=== PATIENT | female | born 1945 | race Caucasian/White ===

== ENCOUNTER 2016-09-01 07:47 | Day surgery (SDC) | payer MEDICARE, BC ==
[~2016-09-01 07:47] MED LIST: Acetaminophen TAB* 325 MG PO PRN; Buffered Lidocaine 0.9% SYRIN* 5 ML/SYR SYRINGE INTRADERM ONE
[2016-09-01] MEDS ORDERED: fentaNYL* 50 MCG/ML 2 ML VIAL (100 MCG VIAL) ONE (08:59)
[2016-09-01] MEDS ORDERED: Midazolam* 1 MG/ML 2 ML VIAL (2 MG) ONE (08:59)
[2016-09-01 10:29] VITALS: BP 121/63
[2016-09-01] MEDS ORDERED: Lidocaine 2% EPI 1:200000 MPF* 20 ML VIAL ONE (11:00)
[2016-09-01] MEDS ORDERED: Proparacaine 0.5% OPHTH.SOL* 15 ML BTL ONE (11:00)
[2016-09-01] MEDS ORDERED: acetaZOLAMIDE TAB* 250 MG ONE (11:00)
[2016-09-01] MEDS ORDERED: Flurbiprofen 0.03% OPTH.SOL* 2.5 ML BTL ONE (11:00)
[2016-09-01] MEDS ORDERED: Lidocaine 2% MPF* 2 ML VIAL ONE (11:00)
[2016-09-01] MEDS ORDERED: Neomycin/Polymy/Dex OPTH.SUSP* MAXITROL 0.1% 5 ML ONE (11:00)
[2016-09-01] MEDS ORDERED: Cyclopentolate 1% OPTH.SOL* 2 ML BTL ONE (11:00)
[2016-09-01] MEDS ORDERED: Povidone Iodine 5% OPTH* 30 ML BTL ONE (11:00)
[2016-09-01] MEDS ORDERED: Phenylephrine 2.5% OPTH.SOL* 2 ML BTL ONE (11:00)
--- NOTE | 2016-09-01 14:23 | OP ---
OPERATIVE NOTE: DATE OF OPERATION: 09/01/16 DATE OF : 49 SURGEON: Juan Francisco Moore M.D. PREOPERATIVE DIAGNOSIS: Cataract right eye POSTOPERATIVE DIAGNOSIS: Cataract right eye OPERATIVE PROCEDURE: Phacoemulsification right eye with IOL. PROCEDURE: The patient was brought to the operating room after being given 1/2% Alcaine with epinep hrine drops in the preoperative area. The eye was prepped and draped in the usual sterile fashion. Sterile drape and eyelid speculum were placed. Again, topical 1/2% Alcaine with epinephrine was gi janay. A paracentesis incision was made at the 9 o'clock position with the No.75 blade. Clear cornea incision 2.2 x 2.2-mm was created at the 12 o'clock position starting at the anterior limbus using the 2.2-mm keratome. The anterior chamber was irrigated with 0.4 mL of 1% non-preservative intracam eral lidocaine and filled with DisCoVisc. A capsulorrhexis was completed using the cystotome and th e Utrata forceps. Hydrodissection was performed with balanced salt solution. The lens nucleus was r emoved with the Phacoemulsification handpiece without incident. Cortex was removed with the irrigat ion-aspiration handpiece. The capsular bag was re-inflated using DisCoVisc and an SN60WF 19.5 impla nt was inserted with the shooter. The irrigation-aspiration handpiece was used to remove all residu al DisCoVisc. The eye was refilled with balanced salt solution and the wound checked and found to b e watertight. Topical Maxitrol drops were given. [id number]/[facility] #: [id number]
== END 2016-09-01 10:39 | disposition home or self-care (01) ==
LOC: OREAST 07:47
PROVIDERS: ATTEND Specialist
DX: H25.811 Combined forms of age-related cataract, right eye (principal); E03.9 Hypothyroidism, unspecified; M19.90 Unspecified osteoarthritis, unspecified site
CPT/HCPCS: A9270-GY; J2250; J3010; V2632

== ENCOUNTER 2016-09-08 06:49 | Day surgery (SDC) | payer MEDICARE, BC ==
[2016-09-08] MEDS ORDERED: fentaNYL* 50 MCG/ML 2 ML VIAL (100 MCG VIAL) ONE (08:19)
[2016-09-08] MEDS ORDERED: Midazolam* 1 MG/ML 2 ML VIAL (2 MG) ONE (08:19)
[2016-09-08 09:22] VITALS: BP 100/64
--- NOTE | 2016-09-08 09:45 | OP ---
DATE OF OPERATION: 09/08/2016 - [facility] DATE OF : 1945. SURGEON: Juan Francisco Moore M.D. PREOPERATIVE DIAGNOSIS: Cataract left eye. POSTOPERATIVE DIAGNOSIS: Cataract left eye. OPERATIVE PROCEDURE: Phacoemulsification left eye with IOL. DESCRIPTION OF PROCEDURE: The patient was brought to the operating room after being given 1/2% Alcaine with epinephrine drops in the preoperative area. The eye was prepped and draped in the usual sterile fashion. Sterile drape and eyelid speculum were placed. Again, topical 1/2% Alcaine with epinephrine was given. A paracentesis incision was made at the 3 o'clock position with the No.75 blade. Clear cornea incision 2.2 x 2.2-mm was created at the 6 o'clock position starting at the anterior limbus using the 2.2-mm keratome. The anterior chamber was irrigated with 0.4 mL of 1% non-preservative intracameral lidocaine and filled with DisCoVisc. A capsulorrhexis was completed using the cystotome and the Utrata forceps. Hydrodissection was performed with balanced salt solution. The lens nucleus was removed with the Phacoemulsification handpiece without incident. Cortex was removed with the irrigation-aspiration handpiece. The capsular bag was re-inflated using DisCoVisc and an SN60WF 20.5 implant was inserted with the shooter. The irrigation-aspiration handpiece was used to remove all residual DisCoVisc. The eye was refilled with balanced salt solution and the wound checked and found to be watertight. Topical Maxitrol drops were given. [id number]/[facility] #: [id number] [facility]
[2016-09-08] MEDS ORDERED: Propofol* 10 MG/ML 20 ML BTL IV PUSH ONE (10:01)
[2016-09-08] MEDS ORDERED: Flurbiprofen 0.03% OPTH.SOL* 2.5 ML BTL ONE (13:48)
[2016-09-08] MEDS ORDERED: Proparacaine 0.5% OPHTH.SOL* 15 ML BTL ONE (13:48)
[2016-09-08] MEDS ORDERED: Buffered Lidocaine 0.9% SYRIN* 5 ML/SYR SYRINGE ONE (13:48)
[2016-09-08] MEDS ORDERED: Lidocaine 2% EPI 1:200000 MPF* 20 ML VIAL ONE (13:48)
[2016-09-08] MEDS ORDERED: Lidocaine 1% MPF wEPI 200,000* 30 ML SDV ONE (13:48)
[2016-09-08] MEDS ORDERED: Povidone Iodine 5% OPTH* 30 ML BTL ONE (13:48)
[2016-09-08] MEDS ORDERED: Lidocaine 1% MPF* 2 ML VIAL ONE (13:48)
[2016-09-08] MEDS ORDERED: Cyclopentolate 1% OPTH.SOL* 2 ML BTL ONE (13:48)
[2016-09-08] MEDS ORDERED: Phenylephrine 2.5% OPTH.SOL* 2 ML BTL ONE (13:48)
[2016-09-08] MEDS ORDERED: acetaZOLAMIDE TAB* 250 MG ONE (13:48)
[2016-09-08] MEDS ORDERED: Neomycin/Polymy/Dex OPTH.SUSP* MAXITROL 0.1% 5 ML ONE (13:48)
== END 2016-09-08 09:19 | disposition home or self-care (01) ==
LOC: OREAST 06:49
PROVIDERS: ATTEND Specialist
DX: H25.812 Combined forms of age-related cataract, left eye (principal); E03.9 Hypothyroidism, unspecified; M19.90 Unspecified osteoarthritis, unspecified site
CPT/HCPCS: A9270-GY; J2001; J2250; J2704; J3010; V2632

== ENCOUNTER 2017-02-08 06:46 | Inpatient (IN) | payer MEDICARE, OTHER ==
--- NOTE | 2017-01-26 18:06 | HP ---
HISTORY AND PHYSICAL: DATE OF SURGERY: 02/08/17 DATE OF OFFICE VISIT: 01/26/17 SURGEON: Shelly Shafer MD * (DICTATED BY REUBEN ROSALES) PROCEDURE: Right total knee arthroplasty. CHIEF COMPLAINT: Right knee pain. HISTORY OF PRESENT ILLNESS: Mrs. Man is a 71-year-old female with complaints of right knee pain secondary to advanced osteoarthritis. She has failed conservative management and has elected to proceed with a right total knee arthroplasty, which is scheduled on 02/08/[address] Shafer. PAST MEDICAL HISTORY: Depression, anxiety, familial tremor, melanoma, IBS, and hypothyroidism. PAST SURGICAL HISTORY: Partial thyroidectomy, left foot surgery x3, left total knee arthroplasty, ganglion cyst excision, removal of melanoma, and a partial hysterectomy. CURRENT MEDICATIONS: 1. Topiramate 50 mg twice daily. 2. Clarinex. 3. Levothyroxine 88 mcg daily. 4. Voltaren gel. 5. Amitiza 24 mcg daily. 6. Probiotic. 7. Zofran 3 times a day as needed. 8. Famotidine 40 mg twice daily. 9. Desloratadine 5 mg daily. ALLERGIES: None. FAMILY HISTORY: [place], dementia, stroke, cancer, and renal disease. SOCIAL HISTORY: She is a 71-year-old female. She lives with her . She does not smoke, use drugs, or alcohol. REVIEW OF SYSTEMS: A complete 14-point review of systems was reviewed with the patient, and was positive for hypothyroidism and asthma. She denies history of DVT, PE, or anesthesia problems. PHYSICAL EXAM: GENERAL: She is well developed, well nourished, in no acute distress. She is alert and oriented x3. Pleasant mood and appropriate affect. VITAL SIGNS: She stands 5 feet 2 inches tall, weighs 150 pounds. Her blood pressure is 112/66, her heart rate is 80. HEENT: Normocephalic, atraumatic. NECK: Supple. No palpable nodes. PULMONARY: Lungs are clear to auscultation bilaterally. CARDIO: Regular rate and rhythm. Strong S1, S2. ABDOMEN: Soft, nontender, and nondistended. MUSCULOSKELETAL: Right lower extremity, the skin is intact. There are no open wounds or abrasions. There is moderate joint effusion. She has tenderness over the medial and lateral joint line, 0 to 125 degrees for flexion, 5/5 lower extremity strength. Intact sensation and 2+ dorsalis pedis pulses. NEUROLOGIC: Cranial nerves II through XII are intact. ASSESSMENT AND PLAN: Mrs. Man is a 71-year-old female with complaints of right knee pain secondary to advanced osteoarthritis. She has failed conservative management and has elected to proceed with a right total knee arthroplasty, which is scheduled for 02/08/[address] Shafer discussed the risks and benefits of the surgery at today's visit and all of her questions were answered. Coumadin and Colace were sent to her pharmacy for a postoperative DVT prophylaxis and constipation secondary to pain medication. Pain medication was not sent today and will be determined at the time of discharge from the hospital. REUBEN ROSALES [id number]/[facility] #: [id number] [facility]
[~2017-02-08 06:46] MED LIST changes: -Acetaminophen TAB* 325 MG PO PRN; +Metoclopramide TAB* 10 MG PO ONE
[2017-02-08] MEDS ORDERED: Metoclopramide TAB* 10 MG ONE (07:05)
[2017-02-08] MEDS ORDERED: Buffered Lidocaine 0.9% SYRIN* 5 ML/SYR SYRINGE ONE (07:05)
[2017-02-08] MEDS ORDERED: Ondansetron INJ* 2 MG/ML VIAL ONE (07:17)
[2017-02-08] MEDS ORDERED: Dexamethasone IV* 4 MG/ML 1 ML (4 MG) ONE (07:17)
[2017-02-08] MEDS ORDERED: Lidocaine 2% PF * 5 ML VIAL ONE (07:17)
[2017-02-08] MEDS ORDERED: KETAMINE HCL* 50 MG/ML 10 ML VIAL ONE (07:17)
[2017-02-08] MEDS ORDERED: Propofol* 10 MG/ML 20 ML BTL IV PUSH ONE (07:17)
[2017-02-08] MEDS ORDERED: Bupivacaine 0.5% SDV PF* 30 ML VIAL ONE (07:17)
[2017-02-08] MEDS ORDERED: Ketorolac INJ* 30 MG/ML 1 ML VIAL ONE (07:17)
[2017-02-08] MEDS ORDERED: fentaNYL* 50 MCG/ML 2 ML VIAL (100 MCG VIAL) ONE ×2 (07:17→13:28)
[2017-02-08] MEDS ORDERED: Morphine PF AMP (0.5MG/ML)* 5 MG/10 ML AMP ONE (07:18)
[2017-02-08] MEDS ORDERED: Midazolam* 1 MG/ML 5 ML VIAL (5 MG) ONE (07:18)
[2017-02-08] MEDS ORDERED: Scopolamine 1.5 mg* PATCH ONE (07:32)
[2017-02-08] MEDS ORDERED: ceFAZolin 2 GM PREMIX (*) 2 GM/50 ML BAG IVPB ONE (08:00)
[2017-02-08] MEDS ORDERED: Morphine INJ* 2 MG/ML 1 ML CARPUJECT IV PRN (08:08)
[2017-02-08] MEDS ORDERED: oxyCODONE/Acetamin 5/325 MG* TAB PO PRN ×4 (08:08→09:28)
[2017-02-08] MEDS ORDERED: Bisacodyl SUPP* 10 MG SUPP PR PRN (08:08)
[2017-02-08] MEDS ORDERED: oxyCODONE TAB* 5 MG TAB PO PRN (08:08)
[2017-02-08] MEDS ORDERED: Magnesium Hydroxide LIQ* 30 ML UDC PO PRN (08:08)
[2017-02-08] MEDS ORDERED: Polyethylene Glycol 3350* 17 GM PACKET PO PRN (08:08)
[2017-02-08] MEDS ORDERED: Acetaminophen TAB* 325 MG PO PRN (08:08)
[2017-02-08] MEDS ORDERED: traZODone TAB* 50 MG TAB PO PRN (08:14)
[2017-02-08] MEDS ORDERED: Phenylephrine INJ* 10 MG/ML 1 ML VIAL (10 MG) ONE (08:26)
[2017-02-08] MEDS ORDERED: Propofol* 500 MG/50 ML BTL ONE (08:36)
[2017-02-08] MEDS ORDERED: Lidocaine 2% EPI 1:200000 MPF* 20 ML VIAL ONE (08:46)
[2017-02-08] MEDS ORDERED: Famotidine TAB* 20 MG PO SCH (09:00)
[2017-02-08] MEDS ORDERED: Topiramate TAB(*) 25 MG PO SCH (09:00)
[2017-02-08] MEDS ORDERED: PROCHLORPERAZINE INJ 5 MG/ML 2 ML VIAL IV PRN (09:25)
[2017-02-08] MEDS ORDERED: Ondansetron INJ* 2 MG/ML VIAL IV PRN ×2 (09:25→09:28)
[2017-02-08] MEDS ORDERED: Phenylephrine INJ* 50 MG in NS 0.9% 250 ML* 245 ML IV PRN (09:25)
[2017-02-08] MEDS ORDERED: diPHENhydraMINE IV* 50 MG/ML 1 ml VIAL (BENADRYL) IV PRN ×2 (09:25→09:28)
[2017-02-08] MEDS ORDERED: fentaNYL* 50 MCG/ML 2 ML VIAL (100 MCG VIAL) IV PRN (09:25)
[2017-02-08] MEDS ORDERED: Naloxone* 0.4 MG/ML 1 ML VIAL IV PRN ×2 (09:28→09:37)
[2017-02-08] MEDS ORDERED: Ketorolac INJ* 30 MG/ML 1 ML VIAL IV PRN (09:28)
[2017-02-08] MEDS ORDERED: EPHEDrine (Pressors)* 50 MG/ML VIAL IV PUSH PRN (09:28)
[2017-02-08] MEDS ORDERED: Ropivacaine 0.2% EPIDURAL* 200 MG/100 ML BAG EPIDURAL ONE (10:09)
[2017-02-08] MEDS ORDERED: Morphine TAB Extended Release (*) 30 MG TAB.ER PO SCH (11:00)
[2017-02-08] MEDS: Ropivacaine 0.2% EPIDURAL* 200 MG/100 ML BAG EPIDURAL SCH ×3 (11:27→21:45)
[2017-02-08] MEDS: Docusate CAP* 100 MG PO SCH ×2 (11:56→20:34)
[2017-02-08] MEDS: ceFAZolin 1 GM VIAL(*) 1 GM in NS 0.9% 50 ML* 50 ML IVPB SCH ×2 (11:57→16:24)
--- NOTE | 2017-02-08 11:59 | RAD ---
HISTORY: Status post right knee arthroplasty COMPARISONS: January 26, 2017 VIEWS: 2, Frontal and lateral views of the right knee FINDINGS: BONE DENSITY: Normal. BONES: The patient is status post right knee arthroplasty. There is no hardware failure or osteolysis. JOINTS: The patient is status post right knee arthroplasty ALIGNMENT: There is no dislocation. SOFT TISSUES: There is post surgical change to the soft tissues. OTHER FINDINGS: None. IMPRESSION: STATUS POST RIGHT KNEE ARTHROPLASTY
[2017-02-08] MEDS ORDERED: Scopolamine 1.5 mg* PATCH TRANSDERM ONE (17:00)
[2017-02-08] MEDS ORDERED: Warfarin TAB(*) 6 MG PO ONE (17:00)
[2017-02-08] MEDS ORDERED: DESLORATIDINE 5 MG PO PRN ×2 (18:19→19:00)
[2017-02-08] MEDS: PROBIOTIC PO SCH (18:46)
[2017-02-08] MEDS: LUBIPROSTONE 24 MCG PO SCH (18:47)
[2017-02-08] MEDS: PTO: Beclomethasone 80 MCG MDI(NF) 80 MCG/PUFF MDI INH SCH ×2 (18:48→20:46)
[2017-02-08] MEDS: Topiramate TAB(*) 25 MG PO SCH (18:50)
[2017-02-08] MEDS: Famotidine TAB* 20 MG PO SCH (18:50)
[2017-02-09] MEDS: ceFAZolin 1 GM VIAL(*) 1 GM in NS 0.9% 50 ML* 50 ML IVPB SCH ×2 (00:43→09:07)
[2017-02-09] MEDS ORDERED: oxyCODONE/Acetamin 5/325 MG* TAB ONE (01:06)
[2017-02-09] MEDS ORDERED: oxyCODONE/Acetamin 5/325 MG* TAB PO ONE ×2 (02:00→05:00)
[2017-02-09] MEDS: Levothyroxine TAB* 88 MCG TAB PO SCH (05:50)
[2017-02-09 05:55] LABS: Hematocrit 34 % (35-47); Hemoglobin 11.3 g/dl (12.0-16.0); Mean Platelet Volume 7 um3 (7.4-10.4)
[2017-02-09] MEDS ORDERED: Ondansetron TAB* 4 MG PO PRN (06:00)
[2017-02-09] MEDS ORDERED: Ondansetron INJ* 2 MG/ML VIAL IV PRN (06:00)
[2017-02-09] MEDS ORDERED: diPHENhydraMINE IV* 50 MG/ML 1 ml VIAL (BENADRYL) IV PRN (06:00)
[2017-02-09 06:11] LABS: BUN/Creatinine Ratio 21.7 (8-20); Calcium 8.5 mg/dL (8.6-10.3); EGFR African American 108.5 (>60); EGFR Non-African American 84.4 (>60); Potassium 3.8 mmol/L (3.5-5.0)
[2017-02-09] MEDS ORDERED: NS 0.9% 50 ML* 50 ML ONE (08:46)
--- NOTE | 2017-02-09 08:48 | PN ---
Progress Note - Progress Note Date of Service: 02/09/17 SOAP: Subjective: []Patient seen OOB in chair. Her pain is not well controlled at this time. No chest pain, shortness of breath, nausea, leg numbness, fever or chills. Objective: [] Vital Signs Temp 97.2 F 02/09/17 07:16 Pulse 59 02/09/17 07:16 Resp 18 02/09/17 07:21 BP 98/60 02/09/17 07:20 Pulse Ox 97 02/09/17 07:16 Intake & Output 02/08/17 02/09/17 02/09/17 18:59 06:59 18:59 Intake Total 4805 2260 Output Total 1350 1800 Balance 3455 460 Weight 149 lb Intake: IV Fluids 3450 1590 LR 3400 1540 NS 50ML, Cefazolin 2G 50 cefazolin 50 IVPB 555 LR 500 cefazolin 55 Oral 800 670 Output: Petit 1150 1800 Estimated Blood Loss 200 Other: # Bowel Movements 1 Estimated Stool Amount Small Laboratory Last Values Hgb 11.3 g/dl (12.0-16.0) L 02/09/17 05:38 Hct 34 % (35-47) L 02/09/17 05:38 Plt Count 204 10^3/ul (150-450) 02/09/17 05:38 MPV 7 um3 (7.4-10.4) L 02/09/17 05:38 INR (Anticoag Therapy) 0.98 (0.89-1.11) 02/09/17 05:38 Sodium 139 mmol/L (133-145) 02/09/17 05:38 Potassium 3.8 mmol/L (3.5-5.0) 02/09/17 05:38 Chloride 112 mmol/L (101-111) H 02/09/17 05:38 Carbon Dioxide 24 mmol/L (22-32) 02/09/17 05:38 Anion Gap 3 mmol/L (2-11) 02/09/17 05:38 BUN 15 mg/dL (6-24) 02/09/17 05:38 Creatinine 0.69 mg/dL (0.51-0.95) 02/09/17 05:38 Est GFR ( Amer) 108.5 (>60) 02/09/17 05:38 Est GFR (Non-Af Amer) 84.4 (>60) 02/09/17 05:38 BUN/Creatinine Ratio 21.7 (8-20) H 02/09/17 05:38 Glucose 131 mg/dL (70-100) H 02/09/17 05:38 Calcium 8.5 mg/dL (8.6-10.3) L 02/09/17 05:38 General: OOB in chair. Calm, cooperative and in no acute distress RLE: Dressing CDI. Drain pulled without complication by Dr. Shafer this morning BL LE: Calves supple and nontender without erythema, edema, palpable cords. Negative ayesha's sign. DF/PF intact. DP/PT 2+. Sensation intact distally. Assessment: [] POD 1 s/p Right total knee arthroscopy 02/08 Dr. Shafer Plan: []WBAT PT/OT Lovenox/ Coumadin 6 mg today Added toradol for pain control. <Tabby Morgan - Last Filed: 02/09/17 10:42> - Progress Note SOAP: Subjective: [] Objective: [] Assessment: arthroplasty not arthroscopy Plan: [] <Shelly Shafer - Last Filed: 02/10/17 08:54>
[2017-02-09] MEDS ORDERED: Morphine TAB Extended Release (*) 30 MG TAB.ER PO SCH (09:00)
[2017-02-09] MEDS: PROBIOTIC PO SCH ×2 (09:08→16:38)
[2017-02-09] MEDS: PTO: Beclomethasone 80 MCG MDI(NF) 80 MCG/PUFF MDI INH SCH ×2 (09:08→19:58)
[2017-02-09] MEDS: Topiramate TAB(*) 25 MG PO SCH ×2 (09:09→16:38)
[2017-02-09] MEDS: Famotidine TAB* 20 MG PO SCH ×2 (09:09→16:38)
[2017-02-09] MEDS: Morphine TAB Extended Release (*) 15 MG TAB.ER PO SCH ×2 (09:10→19:57)
[2017-02-09] MEDS: Docusate CAP* 100 MG PO SCH ×2 (09:11→20:05)
[2017-02-09] MEDS: HYDROmorphone TAB* 2 MG PO PRN (09:29)
[2017-02-09] MEDS: Enoxaparin(*) 30 MG/0.3 ML SYR SUBCUT SCH (10:32)
[2017-02-09] MEDS ORDERED: Ketorolac INJ* 30 MG/ML 1 ML VIAL ONE (10:50)
--- NOTE | 2017-02-09 11:53 | OP ---
OPERATIVE REPORT: DATE OF OPERATION: 02/08/17 DATE OF : [birth year] SURGEON: Shelly Shafer MD. APPRENTICE INSTRUMENT TECHNICIAN: REUBEN Tavares. Sylvie Sapp did help throughout the procedure with preparation of the leg, wound retraction, manipul ation of the knee and wound closure. ANESTHESIOLOGIST: Dr. Mayo. ANESTHESIA: Spinal epidural. PRE-OP DIAGNOSIS: Severe endstage degenerative osteoarthritis of the right knee joint. POST-OP DIAGNOSIS: Severe endstage degenerative osteoarthritis of the right knee joint. OPERATIVE PROCEDURE: Right total knee arthroplasty. TOURNIQUET TIME: 48 minutes. COMPLICATIONS: None. SPECIMEN: Bone and cartilage from the right knee joint sent to Pathology. HARDWARE USED: This is a cemented [employer]in[employer] total knee arthroplasty hardware. For the femur, a size 4 right narrow Oxinium femoral component. For the tibia, a size 3 right tibial baseplate. F or the insert, a 9-mm posterior stabilized articular insert, size 3-4. For the patella, a 32-mm 3-pe g all poly patella with 7.5 thickness. BRIEF HISTORY/INDICATIONS: Ms. Man is a 71-year-old female with years of increasingly severe right knee pain. She failed conservative treatment with antiinflammatories, pain medications, brace wear, intraarticular injections, and physical therapy. Radiographs showed [id number] arthritis. Due to continued pain and decreased quality of life, she elected to undergo right total knee arthroplasty. Informed consent was obtained from the patient. She understood the risks of the procedure included, but were not limited to bleeding, infection, damage to nearby structures, continued pain, need for fu rther surgery, intraoperative fracture, nerve palsy, hardware failure or loosening, knee stiffness, l oss of motion, stroke, heart attack, blood clot, and . She wished to proceed. INTRAOPERATIVE FINDINGS: Intraoperatively, the patient was noted to have full thickness cartilage lo ss in the medial and patellofemoral compartments. There were significant osteophyte formation. DESCRIPTION OF PROCEDURE: Ms. Man was identified in the preanesthesia unit. Her right lower extrem ity was marked as the correct operative side. Informed consent was signed and placed in the chart. The patient was taken to the operating room and placed under spinal epidural anesthesia. A Petit cat heter was placed. A tourniquet was placed on the right thigh. Right lower extremity was prepped and draped in the usual sterile fashion. Prep time-out was made to the correctly identify the patient's side and site. Appropriate perioperative antibiotics were given within 1 hour of incision. The tourniquet was inflated and total tourniquet time for this procedure was 48 minutes. A midline 1 2 cm incision was made with a 10 blade and carried down to the extensor mechanism. A new 10 blade wa s used to make a standard medial parapatellar arthrotomy. The patella was subluxed laterally. Elect rocautery was used to subperiosteally elevate the soft tissue along the superomedial tibia to the mid sagittal plane. The knee was flexed up. The anterior horn of the lateral meniscus and ACL were racheal ply released. A drill was used to enter the distal femur. Intramedullary distal femoral cutting parminder de was pinned onto to the distal femur. An oscillating saw was used to make the appropriate distal f emur cut. External rotation guide was pinned on the distal femur and the distal femur was sized to a size 4. A size 4 multicutting jig was pinned on the distal femur. Oscillating saw was used to make t he appropriate chamfer cuts. The PCL was completely released. The tibia was subluxed anteriorly. Extramedullary tibial cutting gu marzena was pinned on the proximal tibia. Oscillating saw was used to make the proximal tibial cut perpe ndicular to the mechanical axis of the tibia. The bone was carefully removed. The knee was brought out into full extension. Spacer block had excellent fit. There was good medial and lateral ligament s balancing. Flexion and extension gaps were well balanced. The knee was flexed up. Lamina spreade r was placed both medially and laterally. Any remanning meniscus was carefully removed using electro cautery. A curved osteotome was used to remove any posterior osteophytes. A size 4 right narrow femoral trial was impacted onto the distal femur and had excellent fit. The khadra x for the posterior stabilized implant was prepared using a reamer and box cut osteotome. Trial size 3 tibial tray with a 9-mm insert trial was placed and the knee was taken through range of motion. T he knee had full extension to 130 degrees of flexion with good patellofemoral tracking. The patella was everted. 7 mm of patellar bone and cartilage were carefully removed from the patella using an os cillating saw. The patella was sized to a size 32. The 3 peg holes were drilled thorough the size 3 2 guide. A 32 trial patella with 7.5 thickness was chosen and placed on the patella. The knee was t aken through a range of motion and patellofemoral tracking was satisfactory. All trials were carefully removed. The tibia was subluxed anteriorly and sized to a size 3. Proxima l tibia was prepared using a size 3 keel punch. All bony cut surfaces were copiously irrigated with sterile saline and dried. Final implants were cemented into place, starting with the tibia, followed by the femur and last the patella. A 9-mm insert trial was placed while the knee was brought out in to full extension. Tourniquet was turned down at 48 minutes. The knee was copiously irrigated with sterile saline. Electrocautery was used to obtain meticulous hemostasis. Once the cement had fully cured, the insert trial was removed and the excess cement was carefully removed from around the impla nt and capsule. A 9-mm posterior stabilized articular insert, size 3-4 was chosen as final implant. This was locked into position on the tibial tray. Stability of the insert was checked and rechecked and noted to be stable. The knee was copiously irrigated with sterile saline once again. The extensor mechanism was closed o nelida a medium Hemovac drain using interrupted #1 Vicryls. The rest of the incision was closed in a la yered fashion using 0 and 2-0 Vicryls. Skin was closed using running 3-0 nylon suture. Sterile Xero form, 4x4s and Webril were used to cover the incision. Lorenzo wrap and cold pack were placed over this. The patient's anesthesia was reversed without difficulty. She was taken to the PACU in stable condit ion. Intended weightbearing will be weightbearing as tolerated. Intended DVT prophylaxis will be Co umadin with a Lovenox bridge. [id number]/[facility] #: [id number]
[2017-02-09] MEDS: HYDROmorphone TAB* 4 MG PO PRN ×3 (13:21→22:14)
[2017-02-09] MEDS: PTO:Albuterol HFA INHALER* 8 gm MDI INH PRN ×2 (14:58→19:58)
[2017-02-09] MEDS: LUBIPROSTONE 24 MCG PO SCH (16:38)
[2017-02-09] MEDS ORDERED: Warfarin TAB(*) 6 MG PO ONE (17:00)
[2017-02-09] MEDS: Cyclobenzaprine TAB* 10 MG PO PRN (19:13)
[2017-02-10] MEDS: Ketorolac INJ* 30 MG/ML 1 ML VIAL IV PUSH PRN ×2 (00:03→15:39)
[2017-02-10] MEDS: HYDROmorphone TAB* 4 MG PO PRN ×4 (02:20→17:16)
[2017-02-10] MEDS: PTO:Albuterol HFA INHALER* 8 gm MDI INH PRN (02:29)
[2017-02-10 05:37] LABS: Hematocrit 32 % (35-47); Hemoglobin 10.8 g/dl (12.0-16.0)
[2017-02-10] MEDS: Levothyroxine TAB* 88 MCG TAB PO SCH (06:16)
--- NOTE | 2017-02-10 08:10 | PN ---
Progress Note - Progress Note Date of Service: 02/10/17 SOAP: Subjective: [Pt reports she is doing better pain-kong than she was yesterday. Thinks Toradol is helping. Still has concerns about going home today because of pain. Would like to wait until tomorrow. Slept. Denies CP, SOB, calf pain. Has done stairs with PT.] Objective: [A and O x3, NAD. Seated in chair with cryounit on R knee. Dressing changed - surgical incision benign. Knee with mild swelling, ecchymosis. Calf soft, NT. Distal gross motor and NV function intact. Vital Signs: Temp Pulse Resp BP Pulse Ox 98.2 F 71 15 97/46 93 02/10/17 03:43 02/10/17 03:43 02/10/17 06:17 02/10/17 03:43 02/10/17 03:43 Laboratory Results - last 24 hr 02/10/17 02/10/17 05:11 05:11 Hgb 10.8 L Hct 32 L INR (Anticoag Therapy) 1.96 H ] Assessment: [s/p R TKA POD # 2] Plan: [Pain management Con't PT/OT Lovenox 4 mg today Plan for D/C home tomorrow]
[2017-02-10] MEDS: Topiramate TAB(*) 25 MG PO SCH ×2 (08:35→17:12)
[2017-02-10] MEDS: PROBIOTIC PO SCH ×2 (08:40→17:12)
[2017-02-10] MEDS: Cyclobenzaprine TAB* 10 MG PO PRN (08:40)
[2017-02-10] MEDS: Docusate CAP* 100 MG PO SCH ×2 (08:40→19:41)
[2017-02-10] MEDS: Morphine TAB Extended Release (*) 15 MG TAB.ER PO SCH ×2 (08:41→19:41)
[2017-02-10] MEDS: Enoxaparin(*) 30 MG/0.3 ML SYR SUBCUT SCH (08:43)
[2017-02-10] MEDS: PTO: Beclomethasone 80 MCG MDI(NF) 80 MCG/PUFF MDI INH SCH ×2 (09:12→19:41)
[2017-02-10] MEDS: Famotidine TAB* 20 MG PO SCH ×2 (09:12→17:12)
[2017-02-10] MEDS ORDERED: Warfarin TAB(*) 4 MG PO ONE (17:00)
[2017-02-10] MEDS: LUBIPROSTONE 24 MCG PO SCH (17:12)
[2017-02-10] MEDS: HYDROmorphone TAB* 2 MG PO PRN (21:59)
[2017-02-11] MEDS: HYDROmorphone TAB* 2 MG PO PRN ×3 (02:38→10:55)
[2017-02-11 05:32] LABS: Hematocrit 33 % (35-47)
[2017-02-11] MEDS: Levothyroxine TAB* 88 MCG TAB PO SCH (05:51)
[2017-02-11] MEDS: PTO:Albuterol HFA INHALER* 8 gm MDI INH PRN (08:17)
[2017-02-11] MEDS: PTO: Beclomethasone 80 MCG MDI(NF) 80 MCG/PUFF MDI INH SCH (08:17)
[2017-02-11] MEDS: PROBIOTIC PO SCH (08:17)
[2017-02-11] MEDS: Docusate CAP* 100 MG PO SCH (08:18)
[2017-02-11] MEDS: Famotidine TAB* 20 MG PO SCH (08:18)
[2017-02-11] MEDS: Morphine TAB Extended Release (*) 15 MG TAB.ER PO SCH (08:18)
[2017-02-11] MEDS: Topiramate TAB(*) 25 MG PO SCH (08:19)
--- NOTE | 2017-02-11 09:12 | PN ---
Progress Note - Progress Note Date of Service: 02/11/17 SOAP: Subjective: 71 y/o female s/p R TKA 02/[address] Shafer. Patient overall feeling well, eager for D/C to home today. Pain controlled with increased pain medication yb Dr. Shafer. Working well with PT, afebrile, VSS overnight Objective: General- Well appearing, NAD, AO, sitting in chair comfortably MSK- Dressing removed, incision c/d/i, no drainge noted, minimal erythema, moderate swelling, new dressing placed, + DF/PF b/l, neg homans, PT 2+ b/l. Vital Signs Temp 97.5 F 02/11/17 11:14 Pulse 76 02/11/17 11:14 Resp 17 02/11/17 11:14 BP 105/54 02/11/17 11:14 Pulse Ox 95 02/11/17 11:14 Intake & Output 02/10/17 02/11/17 02/11/17 18:59 06:59 18:59 Intake Total 520 590 530 Output Total 750 775 800 Balance -230 -185 -270 Intake: IV Fluids 0 170 LR 0 NS (0.9%) 170 cefazolin 0 Oral 520 420 530 Output: Urine 750 775 800 Other: Estimated Stool Amount Small Laboratory Results - last 24 hr 02/11/17 02/11/17 05:20 05:20 Hgb 11.0 L Hct 33 L INR (Anticoag Therapy) 2.36 H Assessment: Stable 71 y/o female s/p R TKA 02/[address] Shafer. Plan: - Continue PT/ OT - DVT prophlaxis= INR therap today, hold lovenox, continue coumadin as directed - FOllow up with Dr Shafer within 10-14 days - Continue current pain regimen Active Medications Generic Name Dose Route Start Last Admin Trade Name Freq PRN Reason Stop Dose Admin Acetaminophen 650 mg 02/08/17 08:08 Tylenol Tab* PO Q4H PRN PAIN OR TEMPERATURE Albuterol 1 puff 02/08/17 08:14 02/11/17 08:17 Ventolin Hfa Inhaler* INH 1 puff BID PRN Administration SOB/WHEEZING Beclomethasone Dipropionate 2 puff 02/08/17 21:00 02/11/17 08:17 Qvar 80 Mcg Mdi(Nf) INH 2 puff BID NAWAF Administration Bisacodyl 10 mg 02/08/17 08:08 Dulcolax Supp* MN DAILY PRN constipation Cyclobenzaprine HCl 10 mg 02/08/17 08:15 02/10/17 08:40 Flexeril Tab* PO 10 mg BID PRN Administration SPASMS - MUSCLE Desloratadine 5 mg 02/08/17 19:00 02/09/17 09:19 Clarinex (Nf) PO 5 mg DAILY@0800 PRN Administration Allergy Symptoms Diphenhydramine HCl 12.5 mg 02/09/17 06:00 Benadryl Iv* IV Q6H PRN PRURITIS Docusate Sodium 100 mg 02/08/17 09:00 02/11/17 08:18 Colace Cap* PO 100 mg BID NAWAF Administration Famotidine 40 mg 02/08/17 18:00 02/11/17 08:18 Pepcid Tab* PO 40 mg 0800,1800 NAWAF Administration Hydromorphone HCl 2 mg 02/09/17 06:00 02/11/17 10:55 Dilaudid Tab* PO 2 mg Q4H PRN Administration PAIN Hydromorphone HCl 4 mg 02/09/17 09:26 02/10/17 17:16 Dilaudid Tab* PO 4 mg Q4H PRN Administration SEVERE PAIN Lactated Ringer's 1,000 mls @ 100 mls/hr 02/08/17 09:00 02/08/17 14:00 Lactated Ringers 1000 Ml Bag* IV 100 mls/hr PER RATE NAWAF Administration Ketorolac Tromethamine 30 mg 02/09/17 10:40 02/10/17 15:39 Toradol Inj* IV PUSH 30 mg Q6H PRN Administration PAIN Lactulose 30 ml 02/08/17 08:08 Lactulose* PO Q6H PRN constipation Levothyroxine Sodium 88 mcg 02/09/17 06:00 02/11/17 05:51 Synthroid Tab* PO 88 mcg 0600 NAWAF Administration Lubiprostone 24 mcg 02/08/17 18:00 02/10/17 17:12 Amitiza (Nf) PO 24 mcg QPM NAWAF Administration Magnesium Hydroxide 30 ml 02/08/17 08:08 Milk Of Magnesia Liq* PO Q6H PRN constipation Morphine Sulfate 15 mg 02/09/17 09:01 02/11/17 08:18 Ms Contin(*) PO 15 mg Q12H NAWAF Administration Pto: Probiotic 1 dose 02/09/17 08:00 02/11/17 08:17 PO 1 dose 0800,1800 NAWAF Administration Ondansetron HCl 4 mg 02/09/17 06:00 Zofran Inj* IV Q6H PRN nausea Ondansetron HCl 4 mg 02/09/17 06:00 Zofran Tab* PO Q6H PRN NAUSEA Ondansetron HCl 4 mg 02/08/17 09:25 Zofran Inj* IV ONCE PRN NAUSEA/VOMITING Pharmacy Profile Note 1 note 02/08/17 17:00 02/10/17 17:18 Coumadin Daily Reminder* FOLLOW UP 1 note 1700 NAWAF Administration Pharmacy Profile Note 1 note 02/11/17 17:00 Scopolamine Patch Remove* PATCH OFF 02/11/17 17:01 1700 ONE Polyethylene Glycol/Electrolytes 17 gm 02/08/17 08:08 Miralax* PO DAILY PRN Constipation Scopolamine 1 patch 02/11/17 11:00 02/11/17 10:56 Transderm-Scop 1.5 Mg Patch* TRANSDERM 1 patch Q72H NAWAF Administration Topiramate 50 mg 02/08/17 18:00 02/11/17 08:19 Topamax(*) PO 50 mg 0800,1800 NAWAF Administration Trazodone HCl 50 mg 02/08/17 08:14 Desyrel Tab* PO QPM PRN INSOMNIA
[2017-02-11] MEDS: Enoxaparin(*) 30 MG/0.3 ML SYR SUBCUT SCH (09:25)
[2017-02-11] MEDS ORDERED: Scopolamine PATCH Remove* 1 NOTE MISC PATCH OFF ONE ×2 (10:30→17:00)
[2017-02-11] MEDS ORDERED: Scopolamine 1.5 mg* PATCH TRANSDERM SCH (11:00)
[2017-02-11 11:44] VITALS: BP 105/54
--- NOTE | 2017-02-11 20:00 | DS ---
DISCHARGE SUMMARY: DATE OF ADMISSION: 02/08/17 DATE OF DISCHARGE: 02/11/17 ATTENDING PHYSICIAN: Shelly Shafer MD* (DICTATED BY REUBEN MICHELE) CHIEF COMPLAINT: 1. Right knee pain. 2. Depression. 3. Anxiety. 4. Familial tremor. 5. Melanoma. 6. Irritable bowel syndrome. 7. Hypothyroidism. DISCHARGE DIAGNOSES: 1. Status post uncomplicated right total knee arthroplasty. 2. Depression. 3. Anxiety. 4. Familial tremor. 5. Melanoma. 6. Irritable bowel syndrome. 7. Hypothyroidism. PROCEDURE: Right total knee arthroplasty. CONSULTATIONS: 1. Physical therapy. 2. Occupational therapy. 3. Medicine. BRIEF HISTORY: Mrs. Man is a very pleasant 71-year-old female with severe end- stage degenerative osteoarthritis of the right knee who failed conservative treatment and elected to undergo a right total knee arthroplasty on 02/08/[address] Shelly Shafer. HOSPITAL COURSE: Mrs. Man was admitted to [facility] on 02/08/17 where she underwent a right total knee arthroplasty. Postoperatively she recovered on the surgical short-stay unit. On postoperative day 2, her Petit was removed and she was voiding on her own without difficulty. Her pain management was titrated until she was having good relief with morphine extended release 15 mg twice a day and Dilaudid 2 to 4 mg every 4 hours as needed. She was restarted on her home medications. Her labs and vitals signs remained stable. She was able to weight bear as tolerated on the right lower extremity. She advanced appropriately with physical therapy and occupational therapy. Her DVT prophylaxis was managed with Lovenox and Coumadin until she reached a therapeutic INR. By postoperative day 3, she was orthopedically and medically stable for discharge to go home with home services. PHYSICAL EXAMINATION: General: Well appearing, in no acute distress, alert and oriented, sitting in chair comfortable. Vital Signs: Temperature 97.5, pulse 76, respirations 17, blood pressure 105/54, pulse oxygenation 95% on room air. Musculoskeletal: Examination of the right lower extremity demonstrated bilateral dorsiflexion and plantar flexion, which was equal. Negative Erik's sign bilaterally. Posterior tibial pulses 2+ bilaterally. Dressing was removed from the right knee, which showed the incision to be clean, dry, and intact. No drainage was noted. Minimal erythema noted around the incision site with moderate swelling around the knee itself. A new dressing was placed. Sensation was intact in bilateral lower extremities. LABORATORY DATA: On date of discharge, H and H of 11.0 and 33 with an INR of 2.36. Postoperative films include an x-ray obtained on 02/08/17, which show a right knee arthroplasty in proper positioning. DISCHARGE MEDICATIONS: 1. Tylenol 650 mg p.o. q.4 hours p.r.n. 2. Albuterol 90 mcg inhaled b.i.d. 3. Cyclobenzaprine 10 mg tablets b.i.d. p.r.n. 4. Clarinex D 12 hours 5 mg p.o. q.a.m. 5. Dulcolax 100 mg p.o. b.i.d. 6. Pepcid 40 mg p.o. b.i.d. 7. Dilaudid 2 to 4 mg p.o. q.4 hours p.r.n. for pain. 8. Lactobacillus probiotic 1 capsule p.o. b.i.d. 9. Synthroid 88 mcg p.o. daily. 10. Amitiza 24 mcg p.o. q.p.m. 11. Morphine extended release 20 mg tablets p.o. q.12 hours p.r.n. for pain. 12. Zofran 4 mg p.o. b.i.d. p.r.n. for nausea/indigestion. 13. QVAR 2 puffs inhaled b.i.d. 14. Topamax 50 mg p.o. b.i.d. 15. Trazodone 50 mg p.o. q.p.m. p.r.n. for insomnia, not to be taken with hydrocodone or with morphine extended release. 16. Coumadin 2 mg p.o. daily at 5 p.m. per physician's instructions. CONDITION ON DISCHARGE: Stable. DISCHARGE INSTRUCTIONS: Mrs. Man is a very pleasant 71-year-old female postoperative day 3 status post right total knee arthroplasty, which was uncomplicated. She is orthopedically and medically stable for discharge to go home with home services. Her labs and vital signs are stable. She will be started on home medications. She will hold her Coumadin tonight and will take 2 mg on 02/12/17 and 4 mg on 02/13/17 with a home INR draw on 02/14/17. She will remain weightbearing as tolerated on the right lower extremity. She will have home PT twice week with nursing checks twice a week as well she will take morphine extended release, and Dilaudid as needed for pain control. She will take Colace 2 to 3 times a day for constipation. She will follow up with Dr. Shafer in approximately 10 to 14 days for incision check and for suture removal. She is instructed to go immediately to the ER if she develops chest pain or shortness of breath. Should she develop fever, increasing pain or redness, she is to call the office immediately. REUBEN MICHELE [id number]/[facility] #: [id number] JANE
== END 2017-02-11 12:50 | disposition home health service (06) | DRG 470 ==
LOC: AA 06:46 → SSU 13:53
PROVIDERS: ADMIT Orthopaedic Surgery Adult Reconstructive Orthopaedic Surgery; ATTEND Orthopaedic Surgery Adult Reconstructive Orthopaedic Surgery
PROC: 0SRC0J9 Replacement of Right Knee Joint with Synthetic Substitute, Cemented, Open Approach (ICD-10-PCS; principal; 2017-02-08 08:00)
DX: M17.11 Unilateral primary osteoarthritis, right knee (principal); E89.0 Postprocedural hypothyroidism; F32.9 Major depressive disorder, single episode, unspecified; F41.9 Anxiety disorder, unspecified; K58.9 Irritable bowel syndrome, unspecified; J45.909 Unspecified asthma, uncomplicated; Z96.652 Presence of left artificial knee joint; M25.761 Osteophyte, right knee; G25.0 Essential tremor; Z85.820 Personal history of malignant melanoma of skin; Z90.710 Acquired absence of both cervix and uterus; Z82.3 Family history of stroke; Z82.49 Family history of ischemic heart disease and other diseases of the circulatory system
CPT/HCPCS: 36415; 62323; 80048; 85014; 85018; 85049; 85610; A9270-GY; C1776; J0690; J1100; J1650; J1885; J2250; J2405; J2704; J2795; J3010

== ENCOUNTER 2019-05-05 11:46 | Emergency (ER) | payer MEDICARE, OTHER ==
--- OUTSIDE RECORDS SUMMARY | 2019-05-05 12:40 | XMS REPORT ---
:1945 Author Organization [facility] Care Team Providers Name Role Phone Unavailable Unavailable Unavailable Problems Condition Condition Condition Status Onset Resolution Last Treating Comments Name Details Category Date Date Treatment Clinician Date Broken Broken Diagnosis Active Zahra internal internal 04-19 Carrier RN right knee right knee prosthesis, prosthesis, subsequent subsequent encounter encounter Age-related Age-related Diagnosis Active Zahra osteoporosi osteoporosi 04-19 Carrier RN s without s without current current pathologica pathologica l fracture l fracture Benign Benign Diagnosis Active Zahra paroxysmal paroxysmal 04-19 Carrier RN vertigo, vertigo, bilateral bilateral Other Other Diagnosis Active Zahra interverteb interverteb 04-19 Carrier RN ral disc ral disc degeneratio degeneratio n, lumbar n, lumbar region region Autoimmune Autoimmune Diagnosis Active Zahra thyroiditis thyroiditis 04-19 Carrier RN Hypothyroid Hypothyroid Diagnosis Active Zahra ism, ism, 04-19 Carrier RN unspecified unspecified Other Other Diagnosis Active Zahra specified specified Carrier RN anxiety anxiety disorders disorders Essential Essential Diagnosis Active Zahra tremor tremor Carrier RN Moderate Moderate Diagnosis Active Zahra persistent persistent Carrier RN asthma, asthma, uncomplicat uncomplicat ed ed Gastro-esop Gastro-esop Diagnosis Active Zahra hageal hageal Carrier RN reflux reflux disease disease without without esophagitis esophagitis Irritable Irritable Diagnosis Active Zahra bowel bowel Carrier RN syndrome syndrome without without diarrhea diarrhea Unspecified Unspecified Diagnosis Active Zahra osteoarthri osteoarthri Carrier RN tis, tis, unspecified unspecified site site Retention Retention Diagnosis Active Zahra of urine, of urine, Carrier RN unspecified unspecified Radiculopat Radiculopat Diagnosis Active Zahra hy, hy, Carrier RN lumbosacral lumbosacral region region Radiculopat Radiculopat Diagnosis Active Zahra hy, hy, Carrier RN thoracic thoracic region region Rheumatoid Rheumatoid Diagnosis Active Zahra arthritis, arthritis, Carrier RN unspecified unspecified Raynaud's Raynaud's Diagnosis Active Zahra syndrome syndrome Carrier RN without without gangrene gangrene Acquired Acquired Diagnosis Active Zahra absence of absence of Carrier RN both cervix both cervix and uterus and uterus Personal Personal Diagnosis Active Zahra history of history of Carrier RN other other malignant malignant neoplasm 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 (current) (current) Carrier RN use of use of aspirin aspirin terminal superintendent jail Diagnosis Active Zahra (current) (current) Carrier RN use of use of opiate opiate analgesic analgesic Other long Other long Diagnosis Active Zahra term term Carrier RN (current) (current) drug drug therapy therapy Pain frequent Pain Mgmt Active 2020-0 Pura pain 2-04 (Bobby) 10:25: [id number] Cardio edema Cardiovasc Active 2019-0 Pura ular 2-04 (Bobby) 10:: [id number] Respiratory dyspnea Respirator Active 2020-0 Pura present y 2-04 (Bobby) 10:: [id number] Endo/Ross anti-coagul Endo/Ross Active 2020-0 Pura ation 2-04 (Bobby) therapy 10:: [id number] Integument surgical Integument Active 2019-0 Pura wound 2-04 (Bobby) present 10:: [id number] Integument skin Integument Active 0 Pura integrity 2-04 (Bobby) risk 10:: [id number] Elimination urinary Eliminatio Active 2020-0 Pura incontinenc n 2-04 (Bobby) e 10:: [id number] Neuro confusion Neuro/Emot Active 2020-0 Pura present ion 2-04 (Bobby) 10:: [id number] Neuro anxiety Neuro/Emot Active 2020-0 Pura present ion 2-04 (Bobby) 10:: [id number] Neuro depressive Neuro/Emot Active 2020-0 Pura feelings ion 2-04 (Bobby) present 10:: [id number] Activity ADL Activity Active 2020-0 Pura assistance 2-04 (Bobby) required 10:25: Deluca [id number] Activity self-care Activity Active 2020-0 Pura deficit 2-04 (Bobby) 10:25: Deluca [id number] Safety fall risk Safety Active 2020-0 Pura factor 2-04 (Bobby) present 10:25: Deluca [id number] Safety risk for Safety Active 2020-0 Pura hospitaliza 2-04 (Bobby) tion 10:25: Deluca [id number] Safety can be left Safety Active 2020-0 Pura alone for 2-04 (Bobby) only short 10:25: Deluca [id number] Medication oral med Meds Active 2020-0 Pura assistance 2-04 (Bobby) required 10:25: Deluca [id number] Musculoskel transfer Musculoske Active 2020-0 Pura etal assistance letal 2-04 (Bobby) required 10:25: Deluca [id number] Musculoskel requires Musculoske Active 2020-0 Pura etal human letal 2-04 (Bobby) assist to 10:25: Deluca leave home 00 [id number] Safety structural Safety Active 2020-0 Obi barriers 2-04 Felicia present 13:37: [id number] 00 Safety knowledge/s Safety Active 2020-0 Obi kill 2-04 Felicia deficit: pt 13:37: [id number] ROM ROM PT: ROM Active 2020-0 Obi deficit: LE 2-04 Felicia 13:37: [id number] 00 ROM knowledge/s PT: ROM Active 2020-0 Obi kill 2-04 Kobziewicz deficit LE: 13:37: [id number] pt 00 Strength/To knowledge/s PT: Active 2020-0 Obi ne/Motor kill Strength 2-04 Felicia Control deficit LE: 13:37: [id number] pt 00 Bed mobility/tr PT/OT: Bed Active 2020-0 Obi Mobility/Tr ansfer Mobility/T 2-04 Felicia guidryfer device ransfer 13:37: [id number] present 00 Bed transfer PT/OT: Bed Active 2020-0 Obi Mobility/Tr deficit: Mobility/T 2-04 Felicia guidryfer shower/tub ransfer 13:37: [id number] 00 Bed transfer PT/OT: Bed Active 2020-0 Obi Mobility/Tr deficit: Mobility/T 2-04 Kobzivandana ansfer vehicle ransfer 13:37: [id number] 00 Bed knowledge/s PT/OT: Bed Active Obi Mobility/Tr kill Mobility/T 2-04 Kobzivandana ansfer deficit: pt ransfer 13:37: [id number] 00 Balance/End balance/health coordinator PT/OT: Active Obi urance rdination Balance/En 2-04 Kobziewicz deficit durance 13:37: [id number] 00 OT: Self self-care OT: Active Obi Care deficit Self-Care 2-04 Kobziewicz 13:37: [id number] 00 OT: Self knowledge/s OT: Active Obi Care kill Self-Care 2-04 Kobziewicz deficit: pt 13:37: [id number] 00 Gait/Locomo stair PT/OT: Active Obi tion management Gait/Locom 2-04 Kobziewicz problems req otion 13:37: [id number] Gait/Locomo gait PT/OT: Active Obi tion assistive Gait/Locom 2-04 Kobziewicz problems device otion 13:37: [id number] present 00 Gait/Locomo knowledge/s PT/OT: Active Obi tion kill Gait/Locom 2-04 Kobziewicz problems deficit: pt otion 13:37: [id number] 00 Gait/Locomo gait PT/OT: Active Obi tion deficit Gait/Locom 2-04 Kobziewicz problems otion 13:37: [id number] 00 Allergies, Adverse Reactions, Alerts Allergy Allergy Status Severity Reaction(s) Onset Inactive Treating Comments Name Type Date Date Clinician Unknown None Active Unknown None Unknown No Known Allergies For This Patient Medications Ordered Filled Start Stop Current Ordering Indication Dosage Frequency Signature Comments Components Medication Medication Date Date Medication? Clinician (SIG) Name Name acetaminoph acetaminoph No Hollis 650 mg Unknown en 325 mg en 325 mg MD,Shelly capsule capsule cyclobenzap cyclobenzap No Hollis 10 mg Unknown rine 10 mg rine 10 mg MD,Shelly tablet tablet docusate docusate No Hollis 100 mg Unknown sodium 100 sodium 100 MD,Shelly mg capsule mg capsule Dilaudid 4 Dilaudid 4 No Hollis 4 mg Unknown mg tablet mg tablet Shelly HEARN ms contin ms contin No Hollis 20 mg Unknown 20 mg 20 mg Shelly HEARN Probiotic Probiotic No Hollis 1 Unknown 10 billion 10 billion Shelly HEARN capsule cell cell capsule capsule Topamax 25 Topamax 25 No Hollis 50 mg Unknown mg tablet mg tablet Shelly HEARN ondansetron ondansetron No Hollis 4 mg Unknown 4 mg 4 mg Shelly HEARN disintegrat disintegrat ing tablet ing tablet Amitiza 24 Amitiza 24 No Hollis 24 mg Unknown mcg capsule mcg capsule Shelly HEARN Clarinex 5 Clarinex 5 No Hollis 5 mg Unknown mg tablet mg tablet Shelly HEARN levothyroxi levothyroxi No Hollis 88 mcg Unknown ne 88 mcg ne 88 mcg Shelly HEARN capsule capsule albuterol albuterol No Hollis 2 puffs Unknown sulfate HFA sulfate HFA Shelly HEARN 90 90 mcg/actuati mcg/actuati on aerosol on aerosol inhaler inhaler famotidine famotidine No Hollis 40 mg Unknown 40 mg 40 mg Shelly HEARN tablet tablet Qvar 80 Qvar 80 No Hollis 80 mcg Unknown mcg/actuati mcg/actuati Shelly HEARN on Metered on Metered Aerosol Aerosol oral oral inhaler inhaler traZODone traZODone No Hollis 50 mg Unknown 50 mg 50 mg Shelly HEARN tablet tablet scopolamine scopolamine No Hollis 1 mg Unknown 1 mg over 3 1 mg over 3 Shelly HEARN days days transdermal transdermal patch patch cephALEXin cephALEXin No Hollis 1 Unknown 500 mg 500 mg Shelly HEARN tablet capsule capsule guaiFENesin guaiFENesin No Hollis 1 Unknown 400 mg 400 mg Shelly HEARN tablet tablet tablet Tessalon Tessalon No OShae 100 mg Unknown Perles 100 Perles 100 MDGabby mg capsule mg capsule Aspirin Aspirin Yes Lutton Unknown Unknown [facility]- Jeremie HEARN 81 mg 81 mg chewable chewable tablet tablet buPROPion buPROPion Yes Lutton Unknown Unknown HCl 100 mg HCl 100 mg 2 Jeremie HEARN tablet tablet celecoxib celecoxib Yes Lutton Unknown Unknown 200 mg 200 mg 2- Jeremie HEARN capsule capsule cyclobenzap cyclobenzap 2019-0 Yes Lutton Unknown Unknown rine 5 mg rine 5 mg 2- ,Jeremie tablet tablet famotidine famotidine 0 Yes Lutton Unknown Unknown 20 mg 20 mg 2 ,Jeremie tablet tablet HYDROmorpho HYDROmorpho 2019-0 Yes Lutton Unknown Unknown ne 2 mg ne 2 mg 2 ,Jeremie tablet tablet propranolol propranolol 0 Yes Lutton Unknown Unknown 20 mg 20 mg 2 ,Jeremie tablet tablet lansoprazol lansoprazol 0 Yes Lutton Unknown Unknown e 30 mg e 30 mg 04-24 ,Jeremie capsule,del capsule,del ayed ayed release release morphine 15 morphine 15 Yes Lutton Unknown Unknown mg mg 2 ,Jeremie immediate immediate release release tablet tablet ondansetron ondansetron 0 Yes Lutton Unknown Unknown 4 mg 4 mg 04-24 Jeremie HEARN disintegrat disintegrat ing tablet ing tablet olopatadine olopatadine 0 Yes Lutton Unknown Unknown 0.7 % eye 0.7 % eye 04-24 Jeremie HEARN drops drops Qvar Qvar Yes Lutton Unknown Unknown RediHaler RediHaler 2- Jeremie HEARN 80 80 mcg/actuati mcg/actuati on HFA on HFA breath breath activated activated aerosol aerosol Synthroid Synthroid 2019-0 Yes Lutton Unknown Unknown 88 mcg 88 mcg 2 Jeremie HEARN tablet tablet Topamax 50 Topamax 50 2019-0 Yes Lutton Unknown Unknown mg tablet mg tablet 04-24 Jeremie HEARN traZODone traZODone 0 Yes Lutton Unknown Unknown 50 mg 50 mg 2- Jeremie HEARN tablet tablet Ventolin Ventolin 0 Yes Lutton Unknown Unknown HFA 90 HFA 90 2 Jeremie HEARN mcg/actuati mcg/actuati on aerosol on aerosol inhaler inhaler Vital Signs Vital Name Observation Time Observation Value Comments SYSTOLIC mm[Hg] 2019-05-03 18:10:22 120 mm[Hg] mm[Hg] Method: Sit SYSTOLIC mm[Hg] 2019-04-26 18:10:15 108 mm[Hg] mm[Hg] Method: Stand DIASTOLIC mm[Hg] 2019-05-03 18:10:22 68 mm[Hg] mm[Hg] Method: Sit DIASTOLIC mm[Hg] 2019-04-26 18:10:15 60 mm[Hg] mm[Hg] Method: Stand PULSE 2019-05-03 18:10:22 72 /min /min RESP RATE 2019-05-03 18:10:22 16 /min /min TEMP 2019-05-03 18:10:22 97.8 [degF] Procedures This patient has no known procedures. Results This patient has no known results.
--- OUTSIDE RECORDS SUMMARY | 2019-05-05 12:40 | XMS REPORT ---
:1945 Author Organization [facility] Care Team Providers Name Role Phone Unavailable Unavailable Unavailable Problems Condition Condition Condition Status Onset Resolution Last Treating Comments Name Details Category Date Date Treatment Clinician Date Broken Broken Diagnosis Active 0 Zahra internal internal 1-30 Carrier RN right knee right knee prosthesis, prosthesis, subsequent subsequent encounter encounter Safety structural Safety Active 2020-0 Obi barriers 2-04 Felicia present 13:37: [id number] Safety fall risk Safety Active 2020-0 Obi factor 2-04 Felicia present 13:37: [id number] Safety risk for Safety Active 2019-0 Obi hospitaliza 2-04 Felicia tion 13:37: [id number] 00 Safety can be left Safety Active 2019-0 Obi alone for 2-04 Felicia only short 13:37: [id number] periods 00 Safety knowledge/s Safety Active 2020-0 Obi kill 2-04 Felicia deficit: pt 13:37: [id number] 00 ROM ROM PT: ROM Active 2020-0 Obi deficit: LE 2-04 Felicia 13:37: [id number] 00 ROM knowledge/s PT: ROM Active 2020-0 Obi kill 2-04 Felicia deficit LE: 13:37: [id number] pt 00 Strength/To knowledge/s PT: Active 2020-0 Obi ne/Motor kill Strength 2-04 Felicia Control deficit LE: 13:37: [id number] pt 00 Bed mobility/tr PT/OT: Bed Active 2020-0 Obi Mobility/Tr ansfer Mobility/T 2-04 Felicia ansfer device ransfer 13:37: [id number] present 00 Bed transfer PT/OT: Bed Active 2020-0 Obi Mobility/Tr deficit: Mobility/T 2-04 Felicia ansfer shower/tub ransfer 13:37: [id number] 00 Bed transfer PT/OT: Bed Active Obi Mobility/Tr deficit: Mobility/T 2-04 Doroteocourtneyvandana guidryfer vehicle ransfer 13:37: [id number] 00 Bed knowledge/s PT/OT: Bed Active Obi Mobility/Tr kill Mobility/T 2-04 Felicia ansfer deficit: pt ransfer 13:37: [id number] 00 Balance/End balance/clinical training coordinator PT/OT: Active Obi urance rdination Balance/En 2-04 Kobziewicz deficit durance 13:37: [id number] 00 OT: Self self-care OT: Active Obi Care deficit Self-Care 2-04 Kobziewicz 13:37: [id number] 00 OT: Self knowledge/s OT: Active Obi Care kill Self-Care 2-04 Kobziewicz deficit: pt 13:37: [id number] 00 Gait/Locomo stair PT/OT: Active Obi tion management Gait/Locom 2-04 Kobziewicz problems req otion 13:37: [id number] 00 Gait/Locomo gait PT/OT: Active Obi tion assistive Gait/Locom 2-04 Kobziewicz problems device otion 13:37: [id number] present 00 Gait/Locomo knowledge/s PT/OT: Active 2019- Obi tion kill Gait/Locom 2-04 Kobziewicz problems deficit: pt otion 13:37: [id number] 00 Gait/Locomo gait PT/OT: Active Obi tion deficit Gait/Locom 2-04 Kobziewicz problems otion 13:37: [id number] 00 Allergies, Adverse Reactions, Alerts Allergy Allergy [...] 100 mg Unknown Perles 100 Perles 100 [place] mg capsule mg capsule Aspirin Aspirin Yes Lutton Unknown Unknown [facility]- Jeremie HEARN 81 mg 81 mg chewable chewable tablet tablet buPROPion buPROPion Yes Lutton Unknown Unknown HCl 100 mg HCl 100 mg 2- Jeremie HEARN tablet tablet celecoxib celecoxib 2020-0 Yes Lutton Unknown Unknown 200 mg 200 mg 2- Jeremie HEARN capsule capsule cyclobenzap cyclobenzap 2019-0 Yes Lutton Unknown Unknown rine 5 mg rine 5 mg 2- ,Jeremie tablet tablet famotidine famotidine 2019-0 Yes Lutton Unknown Unknown 20 mg 20 mg 2- ,Jeremie tablet tablet HYDROmorpho HYDROmorpho 2019-0 Yes Lutton Unknown Unknown ne 2 mg ne 2 mg 2 ,Jeremie tablet tablet propranolol propranolol 2019-0 Yes Lutton Unknown Unknown 20 mg 20 mg 2- ,Jeremie tablet tablet lansoprazol lansoprazol 2019-0 Yes Lutton Unknown Unknown e 30 mg e 30 mg 04-24 ,Jeremie capsule,del capsule,del ayed ayed release release morphine 15 morphine 15 2019-0 Yes Lutton Unknown Unknown mg mg 04-24 Jeremie HEARN immediate immediate release release tablet tablet ondansetron ondansetron 2019-0 Yes Lutton Unknown Unknown 4 mg 4 mg 2 Jeremie HEARN disintegrat disintegrat ing tablet ing tablet olopatadine olopatadine 0 Yes Lutton Unknown Unknown 0.7 % eye 0.7 % eye 2 Jeremie HEARN drops drops Qvar Qvar 2019-0 Yes Lutton Unknown Unknown RediHaler RediHaler 2- Jeremie HEARN 80 80 mcg/actuati mcg/actuati on HFA on HFA breath breath activated activated aerosol aerosol Synthroid Synthroid 2019-0 Yes Lutton Unknown Unknown 88 mcg 88 mcg 2 Jeremie HEARN tablet tablet Topamax 50 Topamax 50 2019-0 Yes Lutton Unknown Unknown mg tablet mg tablet - Jeremie HEARN traZODone traZODone 2019-0 Yes Lutton Unknown Unknown 50 mg 50 mg 2- Jeremie HEARN tablet tablet Ventolin Ventolin 2019-0 Yes Lutton Unknown Unknown HFA 90 HFA 90 2 Jeremie HEARN mcg/actuati mcg/actuati on aerosol on aerosol inhaler inhaler Vital Signs Vital Name Observation Time Observation Value Comments SYSTOLIC mm[Hg] 2019-04-24 18:10:13 108 mm[Hg] mm[Hg] Method: Sit DIASTOLIC mm[Hg] 2019-04-24 18:10:13 70 mm[Hg] mm[Hg] Method: Sit PULSE 2019-04-24 18:10:13 78 /min /min Procedures This patient has no known procedures. Results This patient has no known results.
--- OUTSIDE RECORDS SUMMARY | 2019-05-05 12:40 | XMS REPORT ---
:1945 Author Organization [facility] Care Team Providers Name Role Phone Unavailable Unavailable Unavailable Problems Condition Condition Condition Status Onset Resolution Last Treating Comments Name Details Category Date Date Treatment Clinician Date Broken Broken Diagnosis Active 0 Zahra internal internal 1-30 Carrier RN right knee right knee prosthesis, prosthesis, subsequent subsequent encounter encounter Safety structural Safety Active 2020-0 Obi barriers 2-04 Felicia present 13:37: [id number] 00 Safety fall risk Safety Active 2020-0 Obi factor 2-04 Felicia present 13:37: [id number] 00 Safety risk for Safety Active 2019-0 Obi hospitaliza 2-04 Felicia tion 13:37: [id number] 00 Safety can be left Safety Active 2019-0 Obi alone for 2-04 Felicia only short 13:37: [id number] periods 00 Safety knowledge/s Safety Active 2020-0 Obi kill 2-04 Felicia deficit: pt 13:37: [id number] 00 ROM ROM PT: ROM Active 2020-0 Obi deficit: LE 2-04 Felicia 13:37: [id number] 00 ROM knowledge/s PT: ROM Active 2020-0 Obi kill 2-04 Felicia deficit LE: 13:37: [id number] pt 00 Strength/To knowledge/s PT: Active 2020-0 Obi ne/Motor kill Strength 2-04 Felicia Control deficit LE: 13:37: [id number] pt 00 Bed mobility/tr PT/OT: Bed Active 2020-0 Obi Mobility/Tr ansfer Mobility/T 2-04 Felicia ansfer device ransfer 13:37: [id number] present 00 Bed transfer PT/OT: Bed Active 2020-0 Obi Mobility/Tr deficit: Mobility/T 2-04 Felicia ansfer shower/tub ransfer 13:37: [id number] 00 Bed transfer PT/OT: Bed Active 2019- Obi Mobility/Tr deficit: Mobility/T 2-04 Thaniavandana ansfer vehicle ransfer 13:37: [id number] 00 Bed knowledge/s PT/OT: Bed Active 2019-0 Obi Mobility/Tr kill Mobility/T 2-04 Kobzivandana ansfer deficit: pt ransfer 13:37: [id number] 00 Balance/End balance/supervisor [employer] PT/OT: Active 2019- Obi urance rdination Balance/En 2-04 Kobziewicz deficit durance 13:37: [id number] 00 OT: Self self-care OT: Active Obi Care deficit Self-Care 2-04 Kobziewicz 13:37: [id number] 00 OT: Self knowledge/s OT: Active Obi Care kill Self-Care 2-04 Kobziewicz deficit: pt 13:37: [id number] 00 Gait/Locomo stair PT/OT: Active Obi tion management Gait/Locom 2-04 Kobziewicz problems req otion 13:37: [id number] 00 Gait/Locomo gait PT/OT: Active Obi tion assistive Gait/Locom 2-04 Kobziewicz problems device otion 13:37: [id number] present 00 Gait/Locomo knowledge/s PT/OT: Active 2019- Obi tion kill Gait/Locom 2-04 Kobziewicz problems deficit: pt otion 13:37: [id number] 00 Gait/Locomo gait PT/OT: Active Obi tion deficit Gait/Locom 2-04 Kobziewicz problems otion 13:37: [id number] 00 Allergies, Adverse Reactions, Alerts Allergy Allergy Status Severity Reaction(s) Onset Inactive Treating Comments Name Type Date Date Clinician Unknown None Active Unknown None Unknown No Known Allergies For This Patient Medications Ordered Filled Start Stop Current Ordering Indication Dosage Frequency Signature Comments Components Medication Medication Date Date Medication? Clinician (SIG) Name Name No Known No Known No None None None Medications Medications For This For This Patient Patient Vital Signs Vital Name Observation Time Observation Value Comments SYSTOLIC mm[Hg] 2019-04-24 18:10:13 108 mm[Hg] mm[Hg] Method: Sit DIASTOLIC mm[Hg] 2019-04-24 18:10:13 70 mm[Hg] mm[Hg] Method: Sit PULSE 2019-04-24 18:10:13 78 /min /min Procedures This patient has no known procedures. Results This patient has no known results.
--- OUTSIDE RECORDS SUMMARY | 2019-05-05 12:40 | XMS REPORT | Summary of Care ---
:1945 Author Organization [facility] Address [address] [address] Care Team Providers Name Role Phone Ira Bustos MD Primary Care Provider Reason for Visit Reason Comments Pre-Op Exam R TKA revision 04/18/19 Stefan Encounter Details Date Type Department Care Team Description 04/16/2019 Office Visit [facility] Terese Robertson NP Preop examination (Primary Dx); [place] Muhammad [place] [facility] Failure of total knee replacement, subsequent encounter 3 [facility] [address] [address] [place], [place] [id number] Allergies No Known Allergiesdocumented as of this encounter (statuses as of 04/16/2019) Medications Medication Sig Dispensed Refills Start Date End Date Status levothyroxine Take 75 mcg by 0 Active (SYNTHROID) 88 MCG Oral mouth BEFORE Tab BREAKFAST. Lansoprazole 30 MG Oral Take 30 mg by 0 Active CAPSULE DELAYED RELEASE mouth TWICE DAILY. famotidine (PEPCID) 20 Take 40 mg by 0 Active MG Oral Tab mouth HSX1. Propranolol HCl (INDERAL Take 20 mg by 0 Active PO) mouth TWICE DAILY. Multiple Take by mouth. 0 Active Vitamins-Minerals (MULTIVITAMIN ADULT PO) ondansetron (ZOFRAN) 4 Take 4 mg by 0 Active MG Oral Tab mouth EVERY EIGHT HOURS NEEDED for Nausea/Vomiting. Albuterol Sulfate Take by 0 Active (VENTOLIN HFA IN) inhalation. Olopatadine HCl (PAZEO) Place in both 0 Active 0.7 % Ophthalmic eyes. Solution Beclomethasone Take by 0 Active Dipropionate INHALATION inhalation. MDI 80 mcg/act, QVAR, (QVAR) 80 MCG/ACT Inhalation Aero Soln fexofenadine (LAY Take 180 mg by 0 Active ALLERGY) 180 MG Oral Tab mouth DAILY. buPROPion (WELLBUTRIN Take 100 mg by 0 Active SR) 100 MG Oral TABLET mouth TWICE SR 12 HR DAILY. Topiramate 50 MG Oral Take by mouth 0 Active Tab TWICE DAILY. 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 Overview: Added automatically from request for surgery [id number] Rosacea 02/24/2019 Uncomplicated asthma 02/24/2019 Benign essential tremor 02/23/2019 Depression, recurrent 02/23/2019 Hiatal hernia with GERD 02/23/2019 Laryngopharyngeal reflux 02/23/2019 Postoperative hypothyroidism 02/23/2019 Failed arthroplasty, sequela 02/22/2019 documented as of this encounter (statuses as of 04/16/2019) Social History Tobacco Use Types Packs/Day Years Used Date Never Smoker Smokeless Tobacco: Never Used Sex Assigned at Date Recorded Not on file Job Start Date Occupation Industry Not on file Not on file Not on file Travel History Travel Start Travel End No recent travel history available. documented as of this encounter Last Filed Vital Signs Vital Sign Reading Time Taken Comments Blood Pressure 114/62 04/16/2019 3:43 PM EST Pulse - - Temperature - - Respiratory Rate - - Oxygen Saturation - - Inhaled Oxygen Concentration - - Weight 63.5 kg (140 lb) 04/16/2019 3:43 PM EST Height 154.9 cm (5' 1") 04/16/2019 3:43 PM EST Body Mass Index 26.45 04/16/2019 3:43 PM EST documented in this encounter Progress Notes Terese Robertson NP - 04/16/2019 3:15 PM EST ORTHOPEDIC PRE-OPERATIVE HISTORY AND PHYSICAL Patient: Doris Man : 1945 Date of Service: 04/16/2019 Chief Complaint Patient presents with Pre-Op Exam R TKA revision 04/18/19 Stefan Attending:Dr. Aviles Date of Admission/Surgery: 04/18/2019 Pre-operative diagnosis: failed arthroplasty Planned Procedure: right total knee arthroplasty revision PCP: Ira Bustos HPI: Doris Man is a 73-y.o. female who presents today in Pre Admission Testing for medical clearance. Patient has a complaint of right knee pain. Patient is 4 y post left tka and 2 y post rt tka. According to the patient tka done for djd wound healed without complication. Left side complicated by footdrop for 3 months. The patient indicates the location of pain as the joint line. The patient characterizes the pain as being aching. Patient rates the pain as a 5/10 with activity any weight bearing and grades pain as a 0/10 at rest. Exacerbating factors include any weight bearing, alleviating factors include rest. Worst pain with stairs and extended walking and rising after sitting. No significant start up pain. Due to on-going symptoms, failure of conservative treatments, and negative quality of life issues Doris has elected to proceed with right total knee arthroplasty revision. Was originally scheduled with Dr. Nunes but due to unforseen circumstances her surgery was going to bedelayed and she decided to change to Dr. Aviles We discussed surgical treatment consisting of right total knee arthroplasty revision with a goal of obtaining a construct to allow for pain-free ambulation. The procedure, risks, benefits, and alternatives were discussed as well as the jey-operative hospital course with emphasis on possible postoperative infection, neurovascular compromise, intraoperative/post operative bleeding, deep vein thrombosis/pulmonary embolism, possible non- resolving symptoms, need for future procedures, periprosthetic fractures, failures, dislocations, infections, need for revisions staged or otherwise, deep vein thrombosis prophylaxis with Aspirin, complications from the procedure and/or anesthesia not limited to possible loss of limb and/or life, the need for pre-operative home exercise program and post operative physical therapy and occupational therapy, the possibility for short term rehabilitation placement, the post operative course, returning to activities, and avoiding impact activities. The patient is awareof these and has elected to go forward with the surgical procedure by Dr. Aviles. Patient received exercises with Joint Camp Education material for home exercise program including ROM, Strengthening and Stretching during initial office visit. PMHx: Past Medical History: Diagnosis Date Benign essential tremor 02/23/2019 Depression, recurrent (HCC) 02/23/2019 Hiatal hernia with GERD 02/23/2019 Laryngopharyngeal reflux 02/23/2019 Postoperative hypothyroidism 02/23/2019 Rosacea 02/24/2019 Uncomplicated asthma 02/24/2019 Patient Active Problem List Diagnosis Failed arthroplasty, sequela Benign essential tremor Depression, recurrent (HCC) Hiatal hernia with GERD Laryngopharyngeal reflux Postoperative hypothyroidism Rosacea Uncomplicated asthma Failed total knee arthroplasty (HCC) PSHx: has a past surgical history that includes total knee replacement ( Bilateral, 2017). Current Medications: Current Outpatient Medications Medication Sig Albuterol Sulfate (VENTOLIN HFA IN) Take by inhalation. Beclomethasone Dipropionate INHALATION MDI 80 mcg/act, QVAR, (QVAR) 80 MCG/ACT Inhalation Aero Soln Take by inhalation. buPROPion (WELLBUTRIN SR) 100 MG Oral TABLET SR 12 HR Take 100 mg by mouth TWICE DAILY. famotidine (PEPCID) 20 MG Oral Tab Take 40 mg by mouth HSX1. fexofenadine (LAY ALLERGY) 180 MG Oral Tab Take 180 mg by mouth DAILY. Lansoprazole 30 MG Oral CAPSULE DELAYED RELEASE Take 30 mg by mouth TWICE DAILY. levothyroxine (SYNTHROID) 88 MCG Oral Tab Take 75 mcg by mouth BEFORE BREAKFAST. Multiple Vitamins-Minerals (MULTIVITAMIN ADULT PO) Take by mouth. Olopatadine HCl (PAZEO) 0.7 % Ophthalmic Solution Place in both eyes. ondansetron (ZOFRAN) 4 MG Oral Tab Take 4 mg by mouth EVERY EIGHT HOURS NEEDED for Nausea/Vomiting. Propranolol HCl (INDERAL PO) Take 20 mg by mouth TWICE DAILY. Topiramate 50 MG Oral Tab Take by mouth TWICE DAILY. No current facility-administered medications for this visit. ALG: Allergies as of 04/16/2019 (No Known Allergies) SOC Hx: reports that she has never smoked. She has never used smokeless tobacco. Social History Social History Narrative FamHx: family history includes Arthritis in her sister; Cancer in her brother and sister; Diabetes in her father; Heart Disease in her maternal grandfather and paternal grandfather. Family Status Relation Name Status Fa (Not Specified) Sis (Not Specified) Bro (Not Specified) MGFa (Not Specified) PGFa (Not Specified) No fam hist (Not Specified) ROS: See HPI otherwise all other ROS are negative. Physical Exam: General : Doris Man is a 73-y.o. female in no acute distress, conscious alert and oriented timesthree. HEENT: Normal cephalic and atraumatic head. Pupils equal, round, and reactive to light bilaterally. EOM's intact bilaterally. External ears are patent without discharge. Gross hearing is intact. Nose is patent without discharge. Oropharynx clear without exudate. Dentition is adequate. Neck: Supple without adenopathy. Heart: No chest pain or shortness of breath noted. Chest: No audible wheezes, rhonchi, or rales. Abdomen: Bowel sounds present. Soft, non-tender, nondistended. /Recta/Breasts: Deferred Extremities:Knee: There is no obvious clinical deformity. Range of motion of the bilaterally knee demonstrates extension 5, flexion 90 right and 120. Patient has generalized tenderness about rt knee. Ligamentous stress testing reveals tight collaterals at 5 and midflexion laxity bilaterally. Ext mech tracks well. Muscular: Knee extension strength is 5 out of 5, Knee flexion strength is 5 out of 5, plantar flexion strength is 5 out of 5, dorsiflexion strength is 5 out of 5. Neurological: Sensation is intact to the medial, lateral, dorsal, and plantar, aspects of the foot. Vascular: Pedal pulse is present. Neuro: Cranial nerves II-XII grossly intact. Skin: Warm and dry, well perfused Imaging: x-rays obtained previously of the bilateral knee demonstrate primary tka possible tibial debonding. Labs: Hospital Outpatient Visit on 02/23/2019 Component Date Value Ref Range Status ESR 02/23/2019 10 0 - 30 MM/HR Final Methodology was changed 09/13/18. Please note updated reference range. C-Reactive Protein 02/23/2019 0.70 <1.00 mg/dl Final No visits with results within 1 Week(s) from this visit. Latest known visit with results is: Hospital Outpatient Visit on 02/23/2019 Component Date Value ESR 02/23/2019 10 C-Reactive Protein 02/23/2019 0.70 ] Results for orders placed or performed during the hospital encounter of 02/23/19 XR KNEE 4 OR MORE VIEWS RIGHT (STANDARD) Narrative Procedure(s): XR KNEE 4 OR MORE VIEWS RIGHT (STANDARD) Date of service: 02/23/2019 12:00 PM Provided clinical information: 73 years, Female, "pre op, please include templating sphere" Procedure and materials: Bilateral knees radiographs including weight-bearing views Comparison studies: Knees radiographs dated 11/17/2018. Observations: Side: Right knee: Bones: Intact with no displaced fracture or focal osseous destruction. Joints: Right knee arthroplasty in place. Images of the contralateral knee (not including the lateral view) were obtained for correlation demonstrate left knee arthroplasty. Impression Well aligned right knee arthroplasty. No adjacent fractures or hardware complications. Limited imaging of the left knee demonstrates left knee arthroplasty in place. Signed by Charito Reed on 03/01/2019 10:46 AM Lab Results Component Value Date WBC Count 5.95 02/23/2019 Hemoglobin 15.6 02/23/2019 Hematocrit 46.6 (H) 02/23/2019 Platelet Count 240 02/23/2019 Lab Results Component Value Date Sodium 140 02/23/2019 Potassium 3.9 02/23/2019 Chloride 106 02/23/2019 CO2 23 02/23/2019 Glucose 103 (H) 02/23/2019 BUN 22 (H) 02/23/2019 Creatinine 0.9 02/23/2019 Calcium 9.6 02/23/2019 Total Protein 7.6 02/23/2019 Albumin 4.4 02/23/2019 AST 30 02/23/2019 ALT 25 02/23/2019 Alkaline Phosphatase 110 02/23/2019 Total Bilirubin 0.4 02/23/2019 No results found for: INR Labs: Reviewed EKG: Reviewed Recommendations by Medicine: cancelled ICD-9-CM ICD-10-CM 1. Preop examination V72.84 Z01.818 STAPH AUREUS SCREEN BY PCR (PAS PATIENTS ONLY) STAPH AUREUS SCREEN BY PCR (PAS PATIENTS ONLY) 2. Failure of total knee replacement, subsequent encounter V58.89 T84.018D 996.47 Z96.659 V43.65 PLAN: Pending pre-operative medical clearance Doris is scheduled for right total knee arthroplasty revision and will be initiated into total joint camp clinical pathway. The procedure, risks, benefits, alternatives, and post-operative course has been discussed as mentioned previously and she has elected to proceed with this surgical procedure. Please refer to the internal medicine documentation for details. She was instructed to discontinue any aspirin, aspirin related products, and NSAIDs one week prior to procedure. She will also discontinue/modify any medications as instructed at her pre-op medical consultation. She was instructed to be NPO after midnight evening prior to surgery. She was instructed regarding Aspirin 325 mg twice daily for DVT prophylaxis and was instructed that this medication is to be used only after her hospital discharge. She will follow-up approximately 2 weeks after surgery, sooner if any problems/questions. Pre-operative medical evaluation and consultation was completed by Internal Medicine provider. Their opinion on medical clearance and comorbidities will be reviewed and recommendations followed. Please refer to the internal medicine documentation for details. Inpatient services expected to last for greater than two midnights are required and appropriate following the planned total joint arthroplasty which will be performed under spinal or general anesthesiain the setting of advanced degenerative joint disease with failure of non-surgical conservative treatment. This patient's history includes: has a past medical history of Benign essential tremor (02/23/2019), Depression, recurrent (HCC) (02/23/2019), Hiatal hernia with GERD (02/23/2019), Laryngopharyngeal reflux (02/23/2019), Postoperative hypothyroidism (02/23/2019), Rosacea (02/24/2019), and Uncomplicated asthma (02/24/2019).. The plan includes management of comorbid conditions and assessment monitoring of high risk conditions. Based upon these conditions, the patient is expected to need short term rehabilitation placement following their inpatient hospital stay. Author: Terese Robertson NP 17:12. 04/16/2019 documented in this encounter Plan of Treatment Date Type Specialty Care Team Description 02/23/2019 Anesthesia Event [facility] Louis Salinas MD [address] [id number] 04/17/2019 Appointment Pre-Admission Testing 04/18/2019 Hospital Encounter [facility] Jeremie Aviles, [place] [address] [address] [phone] 04/18/2019 Surgery [facility] Jeremie Aviles, [place] [address] [place] [address] [phone] 05/02/2019 Office Visit Orthopedics Terese Robertson NP [address] [address] 05/30/2019 Office Visit Orthopedics Jeremie Aviles MD [address] [place] [address] [phone] Name Type Priority Associated Diagnoses Date/Time STAPH AUREUS SCREEN BY PCR Lab Routine Preop examination 04/16/2019 3:44 PM EST (PAS PATIENTS ONLY) Name Type Priority Associated Diagnoses Order Schedule STAPH AUREUS SCREEN BY Lab Routine Preop examination Expected: 04/16/2019 PCR (PAS PATIENTS ONLY) (Approximate), Expires: 04/16/2020 Health Maintenance Due Date Last Done Comments MEDICARE ANNUAL WELLNESS VISIT 1945 DTaP/Tdap/Td Vaccines (1 - Tdap) 07/30/1958 DEPRESSION SCREENING 1959 HIV SCREENING 07/30/1962 HEPATITIS C SCREENING 1987 MAMMOGRAM (SCREENING) 1987 Colonoscopy 07/30/1997 ZOSTER IMMUNIZATION SERIES (1 of 07/30/1997 2) FALL RISK ASSESSMENT 07/30/2012 OSTEOPOROSIS SCREENING 07/30/2012 PNEUMOCOCCAL 65+YRS (1 of 2 - 07/30/2012 PCV13) INFLUENZA VACCINE (#1) 2018 LIPID DISORDER SCREENING 02/24/2024 02/23/2019 HEPATITIS A IMMUNIZATION SERIES Aged Out No longer eligible based on patient's age to complete this topic HPV IMMUNIZATION SERIES Aged Out No longer eligible based on patient's age to complete this topic MENINGOCOCCAL VACCINE IMM Aged Out No longer eligible based on patient's age to complete this topic documented as of this encounter Results Not on filedocumented in this encounter Visit Diagnoses Diagnosis Failure of total knee replacement, subsequent encounter Diagnosis Preop examination Preoperative examination, unspecified Failure of total knee replacement, subsequent encounter Diagnosis Failed total knee arthroplasty (HCC) Other mechanical complication of prosthetic joint implant documented in this encounter Insurance Payer Benefit Plan / Subscriber ID Effective Phone Address Type Group Dates MEDICARE MEDICARE PART A xxxxxxxxxxx 2012-Prese Medicare & B nt COMMERCIAL COMMERCIAL xxxxxxxxx Effective for Commercial GENERIC GENERIC PLAN all dates (Home) [place] [address] documented as of this encounter
--- OUTSIDE RECORDS SUMMARY | 2019-05-05 12:40 | XMS REPORT ---
:1945 Author Organization [facility] Care Team Providers Name Role Phone Unavailable [...] malignant neoplasm of neoplasm of skin skin long term care phlebotomist long term care phlebotomist Diagnosis Active Zahra (current) (current) Carrier RN use of use of aspirin aspirin prison long term care phlebotomist Diagnosis Active Zahra (current) (current) Carrier RN use of use of opiate opiate analgesic analgesic Other long Other long Diagnosis Active Zahra term term Carrier RN (current) (current) drug drug therapy therapy Pain frequent Pain Mgmt Active 2020-0 Pura pain 2-04 (Bobby) 10:25: [id number] Cardio edema Cardiovasc Active 2019-0 Pura ular 2-04 (Bobby) 10:: [id number] Respiratory dyspnea Respirator Active 2020-0 Pura present y 2-04 (Bobby) 10:: [id number] Endo/Ross anti-coagul Endo/Ross Active 2020-0 Pura ation 2-04 (Bobby) therapy 10:: [id number] Integument surgical Integument Active 2019-0 Pura wound 2-04 (Bobby) present 10:: [id number] Integument skin Integument Active 0 Pura integrity 2-04 (Bobby) risk 10:: [id number] Elimination urinary Eliminatio Active 2020-0 Pura incontinenc n 2-04 (Bobby) e 10:: [id number] Neuro confusion Neuro/Emot Active 2020-0 Pura present ion 2-04 (Bobby) 10:: [id number] Neuro anxiety Neuro/Emot Active 2020-0 Pura present ion 2-04 (Bobby) 10:: [id number] Neuro depressive Neuro/Emot Active 2020-0 Pura feelings ion 2-04 (Bobby) present 10:: [id number] Activity ADL Activity Active 2020-0 Pura assistance 2-04 (Bobby) required 10:25: Deluca [id number] Activity self-care Activity Active 2020-0 Pura deficit 2-04 (Bobby) 10:25: Deluca [id number] Safety fall risk Safety Active 2020-0 Pura factor 2-04 (Bobby) present 10:25: Deluca [id number] Safety risk for Safety Active 2020-0 Pura hospitaliza 2-04 (Bobby) tion 10:25: Deluca [id number] Safety can be left Safety Active 2020-0 Pura alone for 2-04 (Bobby) only short 10:25: Deluca [id number] Medication oral med Meds Active 2020-0 Pura assistance 2-04 (Bobby) required 10:25: Deluca [id number] Musculoskel transfer Musculoske Active 2020-0 Pura etal assistance letal 2-04 (Bobby) required 10:25: Deluca [id number] Musculoskel requires Musculoske Active 2020-0 Pura etal human letal 2-04 (Bobby) assist to 10:25: Deluca leave home 00 [id number] Safety structural Safety Active 2020-0 Obi barriers 2-04 Felicia present 13:37: [id number] Safety knowledge/s Safety Active 2020-0 Obi kill 2-04 Felicia deficit: pt 13:37: [id number] ROM ROM PT: ROM Active 2020-0 Obi deficit: LE 2-04 Felicia 13:37: [id number] 00 ROM knowledge/s PT: ROM Active 2020-0 Obi kill 2-04 Kobziewicz deficit LE: 13:37: [id number] pt 00 Strength/To knowledge/s PT: Active 2020-0 Obi ne/Motor kill Strength 2-04 Felicia Control deficit LE: 13:37: [id number] pt 00 Bed mobility/tr PT/OT: Bed Active 2020-0 Obi Mobility/Tr ansfer Mobility/T 2-04 Felicia guidryfer device ransfer 13:37: [id number] present 00 Bed transfer PT/OT: Bed Active 2020-0 Obi Mobility/Tr deficit: Mobility/T 2-04 Felicia guidryfer shower/tub ransfer 13:37: [id number] 00 Bed transfer PT/OT: Bed Active 2020-0 Obi Mobility/Tr deficit: Mobility/T 2-04 Kobzivandana ansfer vehicle ransfer 13:37: [id number] 00 Bed knowledge/s PT/OT: Bed Active Obi Mobility/Tr kill Mobility/T 2-04 Kobzivandana ansfer deficit: pt ransfer 13:37: [id number] 00 Balance/End balance/mail service coordinator PT/OT: Active Obi urance rdination Balance/En 2-04 Kobziewicz deficit durance 13:37: [id number] 00 OT: Self self-care OT: Active Obi Care deficit Self-Care 2-04 Kobziewicz 13:37: [id number] 00 OT: Self knowledge/s OT: Active Obi Care kill Self-Care 2-04 Kobziewicz deficit: pt 13:37: [id number] 00 Gait/Locomo stair PT/OT: Active Obi tion management Gait/Locom 2-04 Kobziewicz problems req otion 13:37: [id number] Gait/Locomo gait PT/OT: Active Obi tion assistive Gait/Locom 2-04 Kobziewicz problems device otion 13:37: [id number] present 00 Gait/Locomo knowledge/s PT/OT: Active Obi tion kill Gait/Locom 2-04 Kobziewicz problems deficit: pt otion 13:37: [id number] 00 Gait/Locomo gait PT/OT: Active Obi tion deficit Gait/Locom 2-04 Kobziewicz problems otion 13:37: [id number] 00 Allergies, Adverse Reactions, Alerts Allergy Allergy [...] 100 mg Unknown Perles 100 Perles 100 MDMokena mg capsule mg capsule Aspirin Aspirin Yes [...] Lutton Unknown Unknown 20 mg 20 mg 04-24 ,Jeremie tablet tablet HYDROmorpho HYDROmorpho 2019-0 Yes [...] 15 Yes Lutton Unknown Unknown mg mg 04-24 ,Jeremie immediate immediate release release tablet tablet [...] breath activated activated aerosol aerosol Synthroid Synthroid 0 Yes Lutton Unknown Unknown 88 mcg 88 mcg 04-24 Jeremie HEARN tablet tablet Topamax 50 Topamax 50 2019-0 Yes Lutton Unknown Unknown mg tablet mg tablet 04-24 Jeremie HEARN traZODone traZODone 0 Yes Lutton Unknown Unknown 50 mg 50 mg 04-24 Jeremie HEARN tablet tablet Ventolin Ventolin 0 Yes Lutton Unknown Unknown HFA 90 HFA 90 2 Jeremie HEARN mcg/actuati mcg/actuati on aerosol on aerosol inhaler inhaler Vital Signs Vital Name Observation Time Observation Value Comments SYSTOLIC mm[Hg] 2019-04-26 18:10:15 110 mm[Hg] mm[Hg] Method: Sit SYSTOLIC mm[Hg] 2019-04-26 18:10:15 108 mm[Hg] mm[Hg] Method: Stand DIASTOLIC mm[Hg] 2019-04-26 18:10:15 74 mm[Hg] mm[Hg] Method: Sit DIASTOLIC mm[Hg] 2019-04-26 18:10:15 60 mm[Hg] mm[Hg] Method: Stand PULSE 2019-04-26 18:10:15 78 /min /min RESP RATE 2019-04-26 18:10:15 16 /min /min TEMP 2019-04-26 18:10:15 97.3 [degF] Procedures This patient has no known procedures. Results This patient has no known results.
--- OUTSIDE RECORDS SUMMARY | 2019-05-05 12:40 | XMS REPORT ---
:1945 Author Organization [facility] Care Team Providers Name Role Phone [...] malignant neoplasm of neoplasm of skin skin residential buttermaker helper Diagnosis Active Zahra (current) (current) Carrier RN use of use of aspirin aspirin buttermaker helper residential Diagnosis Active Zahra (current) (current) Carrier RN use of use of opiate opiate analgesic analgesic Other long Other long Diagnosis Active Zahra term term Carrier RN (current) (current) drug drug therapy therapy Pain frequent Pain Mgmt Active 2020-0 Pura pain 2-04 (Bobby) 10:25: [id number] Cardio edema Cardiovasc Active 2019-0 Pura ular 2-04 (Bobby) 10:: [id number] Respiratory dyspnea Respirator Active 2020-0 Pura present y 2-04 (Bobby) 10:: [id number] Endo/Ross anti-coagul Endo/Ross Active 2020-0 Pura ation 2-04 (Bobby) therapy 10:: [id number] Integument surgical Integument Active 2019-0 Pura wound 2-04 (Bobby) present 10:: [id number] Integument skin Integument Active 0 Pura integrity 2-04 (Bobby) risk 10:: [id number] Elimination urinary Eliminatio Active 2020-0 Pura incontinenc n 2-04 (Bobby) e 10:: [id number] Neuro confusion Neuro/Emot Active 2020-0 Pura present ion 2-04 (Bobby) 10:: [id number] Neuro anxiety Neuro/Emot Active 2020-0 Pura present ion 2-04 (Bobby) 10:: [id number] Neuro depressive Neuro/Emot Active 2020-0 Pura feelings ion 2-04 (Bobby) present 10:: [id number] Activity ADL Activity Active 2020-0 Pura assistance 2-04 (Bobby) required 10:25: Deluca [id number] Activity self-care Activity Active 2020-0 Pura deficit 2-04 (Bobby) 10:25: Deluca [id number] Safety fall risk Safety Active 2020-0 Pura factor 2-04 (Bobby) present 10:25: Deluca [id number] Safety risk for Safety Active 2020-0 Pura hospitaliza 2-04 (Bobby) tion 10:25: Deluca [id number] Safety can be left Safety Active 2020-0 Pura alone for 2-04 (Bobby) only short 10:25: Deluca [id number] Medication oral med Meds Active 2020-0 Pura assistance 2-04 (Bobby) required 10:25: Deluca [id number] Musculoskel transfer Musculoske Active 2020-0 Pura etal assistance letal 2-04 (Bobby) required 10:25: Deluca [id number] Musculoskel requires Musculoske Active 2020-0 Pura etal human letal 2-04 (Bobby) assist to 10:25: Deluca leave home 00 [id number] Safety structural Safety Active 2020-0 Obi barriers 2-04 Felicia present 13:37: [id number] Safety knowledge/s Safety Active 2020-0 Obi kill 2-04 Felicia deficit: pt 13:37: [id number] ROM ROM PT: ROM Active 2020-0 Obi deficit: LE 2-04 Felicia 13:37: [id number] 00 ROM knowledge/s PT: ROM Active 2020-0 Obi kill 2-04 Kobziewicz deficit LE: 13:37: [id number] pt 00 Strength/To knowledge/s PT: Active 2020-0 Obi ne/Motor kill Strength 2-04 Felicia Control deficit LE: 13:37: [id number] pt 00 Bed mobility/tr PT/OT: Bed Active 2020-0 Obi Mobility/Tr ansfer Mobility/T 2-04 Felicia guidryfer device ransfer 13:37: [id number] present 00 Bed transfer PT/OT: Bed Active 2020-0 Obi Mobility/Tr deficit: Mobility/T 2-04 Felicia guidryfer shower/tub ransfer 13:37: [id number] 00 Bed transfer PT/OT: Bed Active 2020-0 Obi Mobility/Tr deficit: Mobility/T 2-04 Kobzivandana ansfer vehicle ransfer 13:37: [id number] 00 Bed knowledge/s PT/OT: Bed Active Obi Mobility/Tr kill Mobility/T 2-04 Kobzivandana ansfer deficit: pt ransfer 13:37: [id number] 00 Balance/End balance/telehealth coordinator PT/OT: Active Obi urance rdination Balance/En 2-04 Kobziewicz deficit durance 13:37: [id number] 00 OT: Self self-care OT: Active Obi Care deficit Self-Care 2-04 Kobziewicz 13:37: [id number] 00 OT: Self knowledge/s OT: Active Obi Care kill Self-Care 2-04 Kobziewicz deficit: pt 13:37: [id number] 00 Gait/Locomo stair PT/OT: Active Obi tion management Gait/Locom 2-04 Kobziewicz problems req otion 13:37: [id number] 00 Gait/Locomo gait PT/OT: Active Obi tion assistive Gait/Locom 2-04 Kobziewicz problems device otion 13:37: [id number] present 00 Gait/Locomo knowledge/s PT/OT: Active Obi tion kill Gait/Locom 2-04 Kobziewicz problems deficit: pt otion 13:37: [id number] 00 Gait/Locomo gait PT/OT: Active Obi tion deficit Gait/Locom 2-04 Kobziewicz problems otion 13:37: [id number] 00 Allergies, Adverse Reactions, Alerts Allergy Allergy [...] Observation Time Observation Value Comments SYSTOLIC mm[Hg] 2019-04-30 18:10:19 118 mm[Hg] mm[Hg] Method: Sit SYSTOLIC mm[Hg] 2019-04-26 18:10:15 108 mm[Hg] mm[Hg] Method: Stand DIASTOLIC mm[Hg] 2019-04-30 18:10:19 70 mm[Hg] mm[Hg] Method: Sit DIASTOLIC mm[Hg] 2019-04-26 18:10:15 60 mm[Hg] mm[Hg] Method: Stand PULSE 2019-04-30 18:10:19 72 /min /min RESP RATE 2019-04-30 18:10:19 16 /min /min TEMP 2019-04-30 18:10:19 98.4 [degF] Procedures This patient has no known procedures. Results This patient has no known results.
--- OUTSIDE RECORDS SUMMARY | 2019-05-05 12:40 | XMS REPORT ---
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 custodial digital imaging technician Diagnosis Active Zahra (current) (current) Carrier RN use of use of aspirin aspirin digital imaging technician custodial Diagnosis Active Zahra (current) (current) Carrier RN use of use of opiate opiate analgesic analgesic Other long Other long Diagnosis Active Zahra term term Carrier RN (current) (current) drug drug therapy therapy Pain frequent Pain Mgmt Resolve 2019-05-04 Pura pain d 2-04 10:00:00 (Bobby) 10:25: Deluca [id number] Cardio edema Cardiovasc Resolve 2019-05-04 Pura ular d 2-04 10:00:00 (Bobby) 10:25: Deluca [id number] Respiratory dyspnea Respirator Resolve 2019-05-04 Pura present y d 2-04 10:00:00 (Bobby) 10:25: Deluca [id number] Endo/Ross anti-coagul Endo/Ross Resolve 2019-05-04 Pura ation d 2-04 10:00:00 (Bobby) therapy 10:25: Deluca [id number] Integument surgical Integument Resolve 2019-05-04 Pura wound d 2-04 10:00:00 (Bobby) present 10:25: Deluca [id number] Integument skin Integument Resolve 2019-05-04 Pura integrity d 2-04 10:00:00 (Bobby) risk 10:25: Deluca [id number] Elimination urinary Eliminatio Resolve 2019-05-04 Pura incontinenc n d 2-04 10:00:00 (Bobby) e 10:25: Deluca [id number] Neuro confusion Neuro/Emot Resolve 2019-05-04 Pura present ion d 2-04 10:00:00 (Bobby) 10:25: Deluca [id number] Neuro anxiety Neuro/Emot Resolve 2019-05-04 Pura present ion d 2-04 10:00:00 (Bobby) 10:25: Deluca [id number] Neuro depressive Neuro/Emot Resolve 2019-05-04 Pura feelings ion d 2-04 10:00:00 (Bobby) present 10:25: Deluca [id number] Activity ADL Activity Resolve 2019-05-04 Pura assistance d 2-04 10:00:00 (Bobby) required 10:25: Deluca [id number] Activity self-care Activity Resolve 2019-05-04 Pura deficit d 2-04 10:00:00 (Bobby) 10:25: Deluca [id number] Safety fall risk Safety Resolve 2019-05-04 Pura factor d 2-04 10:00:00 (Bobby) present 10:25: Deluca [id number] Safety risk for Safety Resolve 2019-05-04 Pura hospitaliza d 2-04 10:00:00 (Bobby) tion 10:25: Deluca [id number] Safety can be left Safety Resolve 2019-05-04 Pura alone for d 2-04 10:00:00 (Bobby) only short 10:25: Deluca 00 [id number] Medication oral med Meds Resolve 2019-05-04 Pura assistance d 2-04 10:00:00 (Bobby) required 10:25: Deluca [id number] Musculoskel transfer Musculoske Resolve 2019-05-04 Pura etal assistance letal d 2-04 10:00:00 (Bobby) required 10:25: Deluca [id number] Musculoskel requires Musculoske Resolve 2019-05-04 Pura etal human letal d 2-04 10:00:00 (Bobby) assist to 10:25: Deluca leave home 00 [id number] Safety structural Safety Resolve 2019-05-04 Obi barriers d 2-04 10:00:00 Felicia present 13:37: [id number] Safety knowledge/s Safety Resolve 2019-05-04 Obi kill d 2-04 10:00:00 Felicia deficit: pt 13:37: [id number] 00 ROM ROM PT: ROM Resolve 2019-05-04 Obi deficit: LE d 2-04 10:00:00 Felicia 13:37: [id number] ROM knowledge/s PT: ROM Resolve 2019-05-04 Obi kill d 2-04 10:00:00 Felicia deficit LE: 13:37: [id number] pt 00 Strength/To knowledge/s PT: Resolve 2019-05-04 Obi ne/Motor kill Strength d 2-04 10:00:00 Felicia Control deficit LE: 13:37: [id number] pt 00 Bed mobility/tr PT/OT: Bed Resolve 2019-05-04 Obi Mobility/Tr ansfer Mobility/T d 2- 10:00:00 Felicia merchant device ransfer 13:37: [id number] present 00 Bed transfer PT/OT: Bed Resolve 2019-05-04 Obi Mobility/Tr deficit: Mobility/T d 2-04 10:00:00 Felicia merchant shower/tub ransfer 13:37: [id number] Bed transfer PT/OT: Bed Resolve 2019-05-04 Obi Mobility/Tr deficit: Mobility/T d 2-04 10:00:00 Felicia merchant vehicle ransfer 13:37: [id number] 00 Bed knowledge/s PT/OT: Bed Resolve 2019-05-04 Obi Mobility/Tr kill Mobility/T d 2-04 10:00:00 Felicia merchant deficit: pt ransfer 13:37: [id number] 00 Balance/End balance/patient care coordinator PT/OT: Resolve 2019-05-04 Obi urance rdination Balance/En d 2-04 10:00:00 Felicia deficit durance 13:37: [id number] 00 OT: Self self-care OT: Resolve 2019-05-04 Obi Care deficit Self-Care d 2- 10:00:00 Felicia 13:37: [id number] 00 OT: Self knowledge/s OT: Resolve 2019-05-04 Obi Care kill Self-Care d 2-04 10:00:00 Kobziewicz deficit: pt 13:37: [id number] 00 Gait/Locomo stair PT/OT: Resolve 2019-05-04 Obi tion management Gait/Locom d 2- 10:00:00 Kobziewicz problems req otion 13:37: [id number] 00 Gait/Locomo gait PT/OT: Resolve 2019-05-04 Obi tion assistive Gait/Locom d 2- 10:00:00 Kobziewicz problems device otion 13:37: [id number] present 00 Gait/Locomo knowledge/s PT/OT: Resolve 2019-05-04 Obi tion kill Gait/Locom d 2- 10:00:00 Kobziewicz problems deficit: pt otion 13:37: [id number] 00 Gait/Locomo gait PT/OT: Resolve 2019-05-04 Obi tion deficit Gait/Locom d 2- 10:00:00 Kobziewicz problems otion 13:37: [id number] 00 Allergies, Adverse Reactions, Alerts Allergy Allergy Status Severity Reaction(s) Onset Inactive Treating Comments Name Type Date Date Clinician Unknown None Active Unknown None Unknown No Known Allergies For This Patient Medications Ordered Filled Start Stop Current Ordering Indication Dosage Frequency Signature Comments Components Medication Medication Date Date Medication? Clinician (SIG) Name Name acetaminoph acetaminoph 2019- No Hollis 650 mg Unknown en 325 mg en 325 mg 05-04 Shelly HEARN capsule capsule cyclobenzap cyclobenzap No Hollis 10 mg Unknown rine 10 mg rine 10 mg 05-04 Shelly HEARN tablet tablet docusate docusate No Hollis 100 mg Unknown sodium 100 sodium 100 05-04 Shelly HEARN mg capsule mg capsule Dilaudid 4 Dilaudid 4 2019- No Hollis 4 mg Unknown mg tablet mg tablet 05-04 Shelly HEARN ms contin ms contin 2019- No Hollis 20 mg Unknown 20 mg 20 mg 05-04 Shelly HEARN Probiotic Probiotic 2019- No Hollis 1 Unknown 10 billion 10 billion 05-04 Shelly HEARN capsule cell cell capsule capsule Topamax 25 Topamax 25 2019- No Hollis 50 mg Unknown mg tablet mg tablet 05-04 Shelly HEARN ondansetron ondansetron Hollis 4 mg Unknown 4 mg 4 mg 05-04 Shelly HEARN disintegrat disintegrat ing tablet ing tablet Amitiza 24 Amitiza 24 Hollis 24 mg Unknown mcg capsule mcg capsule 05-04 Shelly HEARN Clarinex 5 Clarinex 5 Hollis 5 mg Unknown mg tablet mg tablet 05-04 Shelly HEARN levothyroxi levothyroxi Hollis 88 mcg Unknown ne 88 mcg ne 88 mcg 05-04 Shelly HEARN capsule capsule albuterol albuterol Hollis 2 puffs Unknown sulfate HFA sulfate HFA 05-04 Shelly HEARN 90 90 mcg/actuati mcg/actuati on aerosol on aerosol inhaler inhaler famotidine famotidine Hollis 40 mg Unknown 40 mg 40 mg 05-04 Shelly HEARN tablet tablet Qvar 80 Qvar 80 Hollis 80 mcg Unknown mcg/actuati mcg/actuati 05-04 Shelly HEARN on Metered on Metered Aerosol Aerosol oral oral inhaler inhaler traZODone traZODone Hollis 50 mg Unknown 50 mg 50 mg 05-04 Shelly HEARN tablet tablet scopolamine scopolamine Hollis 1 mg Unknown 1 mg over 3 1 mg over 3 05-04 Shelly HEARN days days transdermal transdermal patch patch cephALEXin cephALEXin Hollis 1 Unknown 500 mg 500 mg 05-04 Shelly HEARN tablet capsule capsule guaiFENesin guaiFENesin Hollis 1 Unknown 400 mg 400 mg 05-04 Shelly HEARN tablet tablet tablet Tessalon Tessalon OShae 100 mg Unknown Perles 100 Perles 100 05-04 ,Gabby mg capsule mg capsule Aspirin Aspirin 2019- Yes Lutton Unknown Unknown [facility] 04-24 ,Jeremie 81 mg 81 mg chewable chewable tablet tablet buPROPion buPROPion 2019- Yes Lutton Unknown Unknown HCl 100 mg HCl 100 mg 04-24 ,Jeremie tablet tablet celecoxib celecoxib 2019- Yes Lutton Unknown Unknown 200 mg 200 mg 04-24 ,Jeremie capsule capsule cyclobenzap cyclobenzap 2020-0 2020- Yes Lutton Unknown Unknown rine 5 mg rine 5 mg 04-24 ,Jeremie tablet tablet famotidine famotidine 2020- Yes Lutton Unknown Unknown 20 mg 20 mg 04-24 ,Jeremie tablet tablet HYDROmorpho HYDROmorpho 2020- Yes Lutton Unknown Unknown ne 2 mg ne 2 mg 04-24 ,Jeremie tablet tablet propranolol propranolol 0 2020- Yes Lutton Unknown Unknown 20 mg 20 mg 04-24 ,Jeremie tablet tablet lansoprazol lansoprazol 2020- Yes Lutton Unknown Unknown e 30 mg e 30 mg 04-24 ,Jeremie capsule,del capsule,del ayed ayed release release morphine 15 morphine 15 2020- Yes Lutton Unknown Unknown mg mg 04-24 ,Jeremie immediate immediate release release tablet tablet ondansetron ondansetron 2020- Yes Lutton Unknown Unknown 4 mg 4 mg 04-24 Jeremie HEARN disintegrat disintegrat ing tablet ing tablet olopatadine olopatadine 2020- Yes Lutton Unknown Unknown 0.7 % eye 0.7 % eye 04-24 Jeremie HEARN drops drops Qvar Qvar 2020- Yes Lutton Unknown Unknown RediHaler RediHaler 04-24 Jeremie HEARN 80 80 mcg/actuati mcg/actuati on HFA on HFA breath breath activated activated aerosol aerosol Synthroid Synthroid 2020- Yes Lutton Unknown Unknown 88 mcg 88 mcg 04-24 Jeremie HEARN tablet tablet Topamax 50 Topamax 50 0 2020- Yes Lutton Unknown Unknown mg tablet mg tablet 04-24 Jeremie HEARN traZODone traZODone 0 2020- Yes Lutton Unknown Unknown 50 mg 50 mg 04-24 ,Jeremie tablet tablet Ventolin Ventolin 0 2020- Yes Lutton Unknown Unknown HFA 90 HFA 90 04-24 Jeremie HEARN mcg/actuati mcg/actuati on aerosol on aerosol inhaler inhaler Vital Signs Vital Name Observation Time Observation Value Comments SYSTOLIC mm[Hg] 2019-05-04 18:10:23 110 mm[Hg] mm[Hg] Method: Sit SYSTOLIC mm[Hg] 2019-04-26 18:10:15 108 mm[Hg] mm[Hg] Method: Stand DIASTOLIC mm[Hg] 2019-05-04 18:10:23 74 mm[Hg] mm[Hg] Method: Sit DIASTOLIC mm[Hg] 2019-04-26 18:10:15 60 mm[Hg] mm[Hg] Method: Stand PULSE 2019-05-04 18:10:23 74 /min /min RESP RATE 2019-05-04 18:10:23 16 /min /min TEMP 2019-05-04 18:10:23 97.4 [degF] Procedures This patient has no known procedures. Results This patient has no known results.
--- OUTSIDE RECORDS SUMMARY | 2019-05-05 12:40 | XMS REPORT | Summary of Care ---
:1945 Author Organization [facility] Address [address] [facility] [place] [address] Care Team Providers Name Role Phone Ira Bustos MD Primary Care Provider Reason for Visit Reason Comments Surgical Followup s/p RTKA Revison 04/18/19 Encounter Details Date Type Department Care Team Description 05/02/2019 Office Visit [facility] OR[facility]EDICS Terese Robertson NP Status post revision [address] [facility] of total replacement [address] [place] [address] of right knee (Primary [facility] [place] [address] Dx) [phone] Allergies No Known Allergiesdocumented as of this encounter (statuses as of 05/02/2019) Medications Medication Sig Dispensed Refills Start Date End Date Status levothyroxine Take 75 mcg by 0 Active (SYNTHROID) 88 MCG Oral mouth BEFORE Tab BREAKFAST. Lansoprazole 30 MG Oral Take 30 mg by 0 Active CAPSULE DELAYED RELEASE mouth TWICE DAILY. famotidine (PEPCID) 20 Take 40 mg by 0 Active MG Oral Tab mouth EVERY BEDTIME. Propranolol HCl (INDERAL Take 20 mg by [...] Active SR) 100 MG Oral TABLET mouth DAILY. SR 12 HR Topiramate 50 MG Oral Take by mouth 0 Active Tab TWICE DAILY. trazodone (DESYREL) 50 Take 50 mg by 0 Active MG Oral Tab mouth EVERY BEDTIME. celeCOXIB (CELEBREX) 200 Take 1 Cap by 60 Cap 0 04/19/2019 Active MG Oral Cap mouth EVERY TWELVE HOURS. aspirin 81 MG Oral Tab Take 1 Tab by 0 04/19/2019 Active mouth TWICE DAILY. ondansetron (ZOFRAN) 4 Take 4 mg by 18 Tab 0 04/20/2019 Active MG Oral Tab mouth EVERY EIGHT HOURS NEEDED (nausa/vomiting) . HYDROmorphone (DILAUDID) Take 1 Tab by 30 Tab 0 04/26/2019 Active 2 MG Oral Tab mouth EVERY FOUR HOURS NEEDED (severe pain). Max Daily Amount: 12 mg. morphine (ORAMORPH SR, Take 1 Tab by 10 Tab 0 04/26/2019 Active MS CONTIN) 15 MG Oral mouth EVERY Tab CRIndications: Pain TWELVE HOURS. Max Daily Amount: 30 mg. Indications: Pain Acetaminophen (TYLENOL Take by mouth. 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 documented as of this encounter (statuses as of 05/02/2019) Social History Tobacco Use Types Packs/Day Years Used Date Never Smoker Smokeless Tobacco: Never Used Alcohol Use Drinks/Week oz/Week Comments Not Currently Sex Assigned at Date Recorded Not on file documented as of this encounter Last Filed Vital Signs Vital Sign Reading Time Taken Comments Blood Pressure - - Pulse - - Temperature - - Respiratory Rate - - Oxygen Saturation - - Inhaled Oxygen Concentration - - Weight 63.5 kg (140 lb) 05/02/2019 10:31 AM EST Height 154.9 cm (5' 1") 05/02/2019 10:31 AM EST Body Mass Index 26.45 05/02/2019 10:31 AM EST documented in this encounter Progress Notes Terese Robertson NP - 05/02/2019 10:30 AM EST Patient: Doris Man : 1945 Date of Service: 05/02/2019 Chief Complaint Patient presents with ? Surgical Followup s/p RTKA Revison 04/18/19 HPI: Doris Man is a 73-y.o. female who is here for follow up 2 weeks status post right total knee arthroplasty revision. The patient reports that she is mobilizing with pain rated as 3/10 in the medial thigh, medial knee, lateral knee with a walker. She denies fever, chills, night sweats, or constitutional symptoms. She denies any mechanical or instability issues with her knee. Physical Exam: General appearance: alert, well appearing, and in no distress, oriented to person, place, and time and normal appearing weight. Vitals: Height 5' 1" (1.549 m), weight 140 lb (63.5 kg). Body mass index is 26.45 kg/m. Gait: Patient walks with a walker, normal gait. Knee: The wound is healing without complication. Range of motion of the right knee demonstrates extension 0, flexion 75 and quadriceps lag of 0. The collateral ligaments are stable and the extensor mechanism tracks well. Neurological: Sensation is intact to the foot. Vascular: Pedal pulse is present. Pedal edema is absent. Skin condition to the foot is unremarkable and intact. Imaging: x-rays obtained today of the right knee, compared to previous films, demonstrate the implants in good position with no evidence of loosening, wear, or subsidence. X-rays reviewed by myself and with patient. Impression: ICD-9-CM ICD-10-CM 1. Status post revision of total replacement of right knee V43.65 Z96.651 Plan: The patient's questions and concerns were addressed and answered to their satisfaction. Doris Man was asked to continue with her mobilization and PT and will follow up in 4 weeks or sooner if necessary. She is to have an x-ray of the right knee at that time. Author: Terese Robertson NP 05/02/2019 12:24 documented in this encounter Plan of Treatment Date Type Specialty Care Team Description 05/30/2019 Office Visit Orthopedics Jeremie Aviles MD [address] [place] [address] [phone] Health Maintenance Due Date Last Done Comments MEDICARE ANNUAL WELLNESS VISIT 1945 DTaP/Tdap/Td Vaccines (1 - Tdap) 07/30/1958 DEPRESSION SCREENING 1959 HIV SCREENING 07/30/1962 HEPATITIS C SCREENING 1987 MAMMOGRAM (SCREENING) 1987 Colonoscopy 07/30/1997 ZOSTER IMMUNIZATION SERIES (1 of 07/30/1997 2) FALL RISK ASSESSMENT 07/30/2012 PNEUMOCOCCAL 65+YRS (1 of 2 - 07/30/2012 PCV13) INFLUENZA VACCINE (#1) 2018 LIPID DISORDER SCREENING 02/24/2024 02/23/2019 OSTEOPOROSIS SCREENING 03/19/2029 03/19/2019 HEPATITIS A IMMUNIZATION SERIES Aged Out No longer eligible based on patient's age to complete this topic HPV IMMUNIZATION SERIES Aged Out No longer eligible based on patient's age to complete this topic MENINGOCOCCAL VACCINE IMM Aged Out No longer eligible based on patient's age to complete this topic documented as of this encounter Implants Implanted Type Area Football Coach Device Shelf Model / Identifier Expiration Serial / Lot Date Smart Set Cement- 40hv - [id number] Right: DEPUY 08/18/2020 [id number] / Implanted: Qty: 3 on 04/18/2019 by Jeremie Aviles MD at [facility] Knee / [id number] Nexgen Femoral Augment Block Right: [employer] 08/19/2027 [id number] / Implanted: Qty: 1 on 04/18/2019 by Jeremie Aviles MD at [facility] Knee / [id number] Nexgen Stem Extension, Offset Right: [employer] 09/18/2027 [id number] / Implanted: Qty: 1 on 04/18/2019 by Jeremie Aviles MD at [facility] Knee / [id number] Nexgen Stem Extemsion, Straight Right: [employer] 09/18/2027 5988- 10-13 / Implanted: Qty: 1 on 04/18/2019 by Jeremie Aviles MD at [facility] Knee / [id number] Nexgen Stemmed Tibial Component Right: [employer] 08/18/2028 5980- 37-01 / Implanted: Qty: 1 on 04/18/2019 by Jeremie Aviles MD at [facility] Knee / [id number] Nexgen Complete Knee Solution _ Legacy Knee- Femoral Component Right: 04/20/2025 [id number] / Implanted: Qty: 1 on 04/18/2019 by Jeremie Aviles MD at [facility] Knee / [id number] Nexgen Complete Knee Solution- Legacy Nee - Constrained Condylar Knee- Articular Surface Right: 09/17/2026 / Implanted: Qty: 1 on 04/18/2019 by Jeremie Aviles MD at [facility] Knee / [id number] documented as of this encounter Results Not on filedocumented in this encounter Visit Diagnoses Diagnosis Status post revision of total replacement of right knee documented in this encounter Insurance Payer Benefit Plan / Subscriber ID Effective Phone Address Type Group Dates MEDICARE MEDICARE PART A [id number] 2012-[facility] Medicare & B nt COMMERCIAL COMMERCIAL [id number] Effective for Commercial [employer] PLAN all dates ([place] [address] documented as of this encounter Advance Directives Code Status Date Activated Date Inactivated Comments Full Code 04/18/2019 3:33 PM Does the patient have decision making capacity? Yes Order was discussed with: Patient I discussed all options and patient/surrogate requested and agreed to: Full Code
--- OUTSIDE RECORDS SUMMARY | 2019-05-05 12:40 | XMS REPORT ---
:1945 Author Organization [facility] Care Team Providers Name Role Phone Unavailable Unavailable Unavailable Problems Condition Condition Condition Status Onset Resolution Last Treating Comments Name Details Category Date Date Treatment Clinician Date Broken Broken Diagnosis Active Zahra internal internal 1-30 Carrier RN right knee right knee prosthesis, prosthesis, subsequent subsequent encounter encounter Allergies, Adverse Reactions, Alerts Allergy Allergy Status [...] Medications For This For This Patient Patient Procedures This patient has no known procedures. Results This patient has no known results.
--- OUTSIDE RECORDS SUMMARY | 2019-05-05 12:40 | XMS REPORT ---
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 use of use of aspirin aspirin meterman skilled nursing Diagnosis Active Zahra (current) (current) Carrier RN use of use of opiate opiate analgesic analgesic Other long Other long Diagnosis Active Zahra term term Carrier RN (current) (current) drug drug therapy therapy Pain frequent Pain Mgmt Active 2020-0 Pura pain 2-04 (Bobby) 10:25: [id number] Cardio edema Cardiovasc Active 2019-0 Pura ular 2-04 (Bobby) 10:: [id number] Respiratory dyspnea Respirator Active 2020-0 Pura present y 2-04 (Bobby) 10:: [id number] Endo/Ross anti-coagul Endo/Ross Active 2020-0 Pura ation 2-04 (Bobby) therapy 10:: [id number] Integument surgical Integument Active 2019-0 Pura wound 2-04 (Bobby) present 10:: [id number] Integument skin Integument Active 0 Pura integrity 2-04 (Bobby) risk 10:: [id number] Elimination urinary Eliminatio Active 2020-0 Pura incontinenc n 2-04 (Bobby) e 10:: [id number] Neuro confusion Neuro/Emot Active 2020-0 Pura present ion 2-04 (Bobby) 10:: [id number] Neuro anxiety Neuro/Emot Active 2020-0 Pura present ion 2-04 (Bobby) 10:: [id number] Neuro depressive Neuro/Emot Active 2020-0 Pura feelings ion 2-04 (Bobby) present 10:: [id number] Activity ADL Activity Active 2020-0 Pura assistance 2-04 (Bobby) required 10:25: [place]uca [id number] Activity self-care Activity Active 2020-0 Pura deficit 2-04 (Bobby) 10:25: Deluca [id number] Safety fall risk Safety Active 2020-0 Pura factor 2-04 (Bobby) present 10:25: Deluca [id number] Safety risk for Safety Active 2020-0 Pura hospitaliza 2-04 (Bobby) tion 10:25: Deluca [id number] Safety can be left Safety Active 2020-0 Pura alone for 2-04 (Bobby) only short 10:25: Deluca [id number] Medication oral med Meds Active 2020-0 Pura assistance 2-04 (Bobby) required 10:25: Deluca [id number] Musculoskel transfer Musculoske Active 2020-0 Pura etal assistance letal 2-04 (Bobby) required 10:25: Deluca [id number] Musculoskel requires Musculoske Active 2020-0 Pura etal human letal 2-04 (Bobby) assist to 10:25: Deluca leave home 00 [id number] Safety structural Safety Active 2020-0 Obi barriers 2-04 Felicia present 13:37: [id number] 00 Safety knowledge/s Safety Active 2020-0 Obi kill 2-04 Felicia deficit: pt 13:37: [id number] 00 ROM ROM PT: ROM Active 2020-0 Obi deficit: LE 2-04 Felicia 13:37: [id number] 00 ROM knowledge/s PT: ROM Active 2020-0 Obi kill 2-04 Kobziewicz deficit LE: 13:37: [id number] pt 00 Strength/To knowledge/s PT: Active 2020-0 Obi ne/Motor kill Strength 2-04 Felicia Control deficit LE: 13:37: [id number] pt 00 Bed mobility/tr PT/OT: Bed Active 2020-0 Obi Mobility/Tr ansfer Mobility/T 2-04 Felicia guidryfer device ransfer 13:37: [id number] present 00 Bed transfer PT/OT: Bed Active 2020-0 Obi Mobility/Tr deficit: Mobility/T 2-04 Felicia guidryfer shower/tub ransfer 13:37: [id number] 00 Bed transfer PT/OT: Bed Active 2020-0 Obi Mobility/Tr deficit: Mobility/T 2-04 Kobzivandana ansfer vehicle ransfer 13:37: [id number] 00 Bed knowledge/s PT/OT: Bed Active Obi Mobility/Tr kill Mobility/T 2-04 Kobzivandana ansfer deficit: pt ransfer 13:37: [id number] 00 Balance/End balance/cooker syrup PT/OT: Active Obi urance rdination Balance/En 2-04 Kobziewicz deficit durance 13:37: [id number] 00 OT: Self self-care OT: Active Obi Care deficit Self-Care 2-04 Kobziewicz 13:37: [id number] 00 OT: Self knowledge/s OT: Active Obi Care kill Self-Care 2-04 Kobziewicz deficit: pt 13:37: [id number] 00 Gait/Locomo stair PT/OT: Active Obi tion management Gait/Locom 2-04 Kobziewicz problems req otion 13:37: [id number] Gait/Locomo gait PT/OT: Active Obi tion assistive Gait/Locom 2-04 Kobziewicz problems device otion 13:37: [id number] present 00 Gait/Locomo knowledge/s PT/OT: Active Obi tion kill Gait/Locom 2-04 Kobziewicz problems deficit: pt otion 13:37: [id number] 00 Gait/Locomo gait PT/OT: Active Obi tion deficit Gait/Locom 2-04 Kobziewicz problems otion 13:37: [id number] 00 Allergies, Adverse Reactions, Alerts Allergy Allergy [...] Unknown Unknown 4 mg 4 mg 04-24 Jereime HEARN disintegrat disintegrat ing tablet ing tablet [...]
--- OUTSIDE RECORDS SUMMARY | 2019-05-05 12:40 | XMS REPORT ---
:1945 Author Organization [facility] Care Team Providers Name Role Phone Unavailable [...]
--- OUTSIDE RECORDS SUMMARY | 2019-05-05 12:40 | XMS REPORT | Continuity of Care Document ---
:1945 External Reference #:[id number] Author Name Ira Bustos MD (transmitted by agent of provider Margie Steele) Address [address] [facility] [address], [place] [address] Care Team Providers Name Role Phone Gabby Santana MD - Family Medicine Care Team Information Barker Peeler Ira Bustos MD - Family Medicine Care Team Information Barker Peeler Problems Active Problems Provider Date Raynaud's disease Marlon Grossman M.D. Onset: 12/20/2011 Immunological Findings Nonspecified Other & Marlon Grossman M.D. Onset: 2011 Unspecified Multiple joint pain Marlon Grossman M.D. 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 Onset: 02/2013 Rheumatoid arthritis Marlon Grossman M.D. Onset: 12/08/2012 Degenerative joint disease of hand Marlon Grossman M.D. Onset: 08/28/2013 Immunologic Marlon Grossman M.D. Onset: 03/06/2014 Taking medication Marlon Grossman M.D. Onset: 09/02/2014 Localized, primary osteoarthritis Shelly Shafer M.D. Onset: 11/20/2014 Arthroplasty of knee Shelly Shafer M.D. Onset: 12/03/2015 Thoracic and lumbosacral neuritis Shelly Shafer M.D. Onset: 01/23/2018 Benign paroxysmal positional vertigo Onset: 10/04/2018 Total knee replacement Onset: 08/28/2018 Degeneration of lumbar intervertebral disc Onset: 08/28/2018 Osteopenia Onset: 04/23/2018 Allergic reaction to bee sting Onset: 02/23/2018 Chronic retention of urine Onset: 02/23/2018 Degenerative joint disease involving multiple Onset: 02/23/2018 joints Rosacea Onset: 02/23/2018 Atrophic vaginitis Onset: 02/23/2018 Recurrent urinary tract infection Onset: 02/23/2018 Irritable bowel syndrome characterized by Onset: 02/23/2018 constipation Gastroesophageal reflux disease with hiatal Onset: 02/23/2018 hernia Moderate persistent asthma Onset: 02/23/2018 Perennial allergic rhinitis with seasonal Onset: 02/23/2018 variation Hereditary essential tremor Onset: 02/23/2018 Mixed anxiety and depressive disorder Onset: 02/23/2018 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 Onset: 02/23/2018 Malignant melanoma of skin of upper limb Onset: 03/21/2016 Hysterectomy Onset: 03/21/1999 Osteoporosis Ira Bustos MD Onset: 04/17/2019 Social History Type Date Description Comments Sex Unknown ETOH Use Denies alcohol use Tobacco Use Start: Unknown Patient has never smoked Smoking Status Reviewed: 11/29/18 Patient has never smoked Exercise Type/Frequency Exercises regularly Allergies, Adverse Reactions, Alerts Active Allergies Reaction Severity Comments Date NKDA 06/03/2011 Tape 01/14/2015 Medications Active Medications SIG Qnty Indications Ordering Date Provider Yuvafem insert tablet pv Ira Bustos, 04/17/2019 10mcg Tablets twice weekly Compression Stockings - ble 1units M25.462 Shelly Shafer, 01/23/2018 swelling/edema- M.D. Misc need thigh high Propranolol HCL take one tablet by 180tabs Hernán Lovett 11/29/2017 20mg mouth twice a day Cyril Montiel Tablets Zofran take 1 by mouth 30tabs Shelly Shafer, 03/17/2017 4mg Tablets twice a day as M.D. needed for nausea Amoxicillin take 4 pills, 2 g 4caps Z47.1 Shelly Shafer, 02/19/2015 500mg 1 hour before M.D. Capsules dental or gi procedure Topiramate take 1 tablet by 180tabs Hernán Lovett 11/28/2014 50mg Tablets mouth twice a day Cyril Montiel Pazeo Pazeo 0.7 % eye Unknown 0.7% Solution drops, 1 drop OU qd Estradiol Apply Pea Sized Unknown 0.1mg/GM Amount To Vulva Cream Twice Weekly AT Bedtime prn Multivitamin Adult 1 by mouth every Unknown day ( not taking Tablets at moment r/t surgery) Bupropion 1 po qd Ira Bustos, Hydrochloride ER (SR) 100mg Tablets ER 12HR Trazodone HCL 1-2 by mouth every Unknown 50mg day at bedtime Tablets Ventolin HFA 1 to 2 inhalations Unknown every 4 hours as 108(90Base) mcg/Act needed Aerosol Lansoprazole one twice a day in Unknown 30mg the morning and at Tablets Dispers night before meals Qvar 2 puffs once a day Unknown 80mcg/Act Aerosol Famotidine 1 po at hs Unknown 40mg Levothyroxine Sodium 1 by mouth every 30tabs Unknown day 75mcg Tablets History Medications Lansoprazole 1 by mouth twice 30caps Ira Bustos MD 04/17/2019 - 30mg Capsules daily 04/17/2019 DR Medications Administered in Office Medication SIG Qnty Indications Ordering Provider Date Depomedrol 40MG Shelly Shafer M.D. 07/23/2016 Injection Depomedrol 80MG Shelly Shafer M.D. 11/20/2014 Injection Jemmaomedrol 80MG Shelly Shafer M.D. 07/26/2014 Injection Immunizations CPT Code Status Date Vaccine Lot # [id number] Given 02/07/2019 Zoster (Zostavax) 25844 Given 12/05/2018 Zoster (Shingles) Vaccine (HZV), Recombinant, Subunit, Adjuvanted 15901 Given 12/05/2018 Fluzone High Dose 59620 Given 12/21/2017 Influenza Virus Vaccine, Quadrivalent, Split, Im Use 6-35mo 13713 Given 08/08/2014 Tdap - Tetanus/Diptheria/Acellular Pertussis 02509 Given 12/17/2013 Flu Vaccine 23904 Given 12/29/2011 Pneumonia Vaccine 62078 Given 12/25/2010 Flu Vaccine 37581 Given 12/21/2010 Flu Vaccine 08409 Given 09/23/2009 Hepatitis B Vaccine 81446 Given 09/23/2009 Hepatitis A Vaccine Adult Dosage 44048 Given 03/25/2009 Hepatitis B Vaccine 86064 Given 02/07/2009 Hepatitis B Vaccine 34507 Given 02/07/2009 Hepatitis A Vaccine Adult Dosage 07012 Given Unknown Typhoid Vaccine Oral Vital Signs Date Vital Result Comment 04/17/2019 1:16pm Height 61.5 inches 5'1.50" Weight 144.12 lb Heart Rate 66 /min BP Systolic 104 mmHg BP Diastolic 65 mmHg Body Temperature 96.8 F O2 % BldC Oximetry 99 % BMI (Body Mass Index) 26.8 kg/m2 12/05/2018 12:00am Height 61.5 inches Weight 140.00 lb BMI (Body Mass Index) 26 kg/m2 Results Test Acquired Date Facility Test Result H/L Range Note Basic metabolic panel 11/30/2018 N2N/[facility]D Import sodium 139 mmol/L 135- 145 - Blood potassium 4.2 mmol/L 3.5-5.0 chloride 108 mmol/L 101-111 Co2 carbon dioxide 26 mmol/L 22-32 anion gap 5 mmol/L 2-11 glucose 103 mg/dL High 70-100 blood urea nitrogen 19 mg/dL 6-24 creatinine 0.91 mg/dL 0.51-0.95 BUN/creatinine ratio 20.9 High 8-20 calcium 10.1 mg/dL 8.6-10.3 eGFR non- 60.9 >60 eGFR 73.7 >60 TSH (thyroid 11/30/2018 N2N/[facility]D Import TSH (thyroid 0.22 mciu/mL Low 0.34 -5.60 stimulating horm) stimulating horm) hemoglobin A1c 11/30/2018 N2N/CCD Import Hemoglobin 5.5 % 4.0-5.6 A1c/Hemoglobin.t otal in Blood Procedures Date Code Description Status 03/19/2019 [id number] Bone Mineral Density Test Completed 08/24/2016 [id number] Diabetic Retinal Eye Exam Completed 03/12/2015 [id number] Bone Mineral Density Test Completed 02/08/2013 [id number] Diabetic Retinal Eye Exam Completed 11/27/2012 [id number] Mammogram Completed Medical Devices Description No Information Available Encounters Type Date Location Provider Dx Diagnosis Office Visit 11/29/2018 [place] [facility] Donovan Choi NP G25.0 Essential tremor 9:00a [facility] Office Visit 10/24/2018 [facility] Selvin Gonzalez M.D. M25.661 Stiffness of 9:45a at [place] right knee, not elsewhere classified M25.562 Pain in left knee M25.561 Pain in right knee Z96.651 Presence of right artificial knee joint Z96.652 Presence of left artificial knee joint M76.51 Patellar tendinitis, right knee M76.52 Patellar tendinitis, left knee Assessments Date Code Description Provider 04/17/2019 Z01.818 Encounter for other preprocedural examination Ira Bustos MD 04/17/2019 Z96.651 Presence of right artificial knee joint Ira Bustos MD 04/17/2019 M17.11 Unilateral primary osteoarthritis, right knee Ira Bustos MD 04/17/2019 M81.0 Osteoporosis Ira Bustos MD 11/29/2018 G25.0 Essential tremor Donovan Choi NP 10/24/2018 M25.661 Stiffness of right knee, not elsewhere classified Selvin Gonzalez M.D. 10/24/2018 M25.562 Pain in left knee Selvin Gonzalez M.D. 10/24/2018 M25.561 Pain in right knee Selvin Gonzalez M.D. 10/24/2018 Z96.651 Presence of right artificial knee joint Selvin Gonzalez M.D. 10/24/2018 Z96.652 Presence of left artificial knee joint Selvin Gonzalez M.D. 10/24/2018 M76.51 Patellar tendinitis, right knee Selvin Gonzalez M.D. 10/24/2018 M76.52 Patellar tendinitis, left knee Selvin Gonzalez M.D. Plan of Treatment Future Appointment(s):11/27/2019 9:30 am - Donovan Choi NP at [facility]04/17/2019 - Ira Bustos MDZ01.818 Encounter for other preprocedural mzclmivxhkyH54.651 Presence of right artificial knee xbzdeK43.11 Unilateral primary osteoarthritis, right kneeM81.0 Osteoporosis Functional Status Description No Information Available Mental Status Description No Information Available Referrals Refer to Dr Reason for Referral Status Appt Date Juan Francisco Sanchez MD eval for systemic arthritide, cause for pain Created [address] [place], [place] [id number] [phone] Juan Francisco Sanchez MD Dr. Meador for assist with pain control in Closed patient with Raynauds, IBS, Hashimotos Thyroid, ?hx Rheumatoid. Total knees with continued pain. [address] [place] [address] [place] [address] [phone] Created Bronson Magdaleno MD patient request referral to rule out metal Sent allergy please test for titanium and cobalt chromium [address] [place] [address] [phone]
--- OUTSIDE RECORDS SUMMARY | 2019-05-05 12:40 | XMS REPORT ---
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 use of use of aspirin aspirin shelter auto electrician Diagnosis Active Zahra (current) (current) Carrier RN use of use of opiate opiate analgesic analgesic Other long Other long Diagnosis Active Zahra term term Carrier RN (current) (current) drug drug therapy therapy Pain frequent Pain Mgmt Active 2020-0 Pura pain 2-04 (Bobby) 10:25: [id number] Cardio edema Cardiovasc Active 2019-0 Pura ular 2-04 (Bobby) 10:: [id number] Respiratory dyspnea Respirator Active 2020-0 Pura present y 2-04 (Bobby) 10:: [id number] Endo/Ross anti-coagul Endo/Ross Active 2020-0 Pura ation 2-04 (Bobby) therapy 10:: [id number] Integument surgical Integument Active 2019-0 Pura wound 2-04 (Bobby) present 10:: [id number] Integument skin Integument Active 0 Pura integrity 2-04 (Bobby) risk 10:: [id number] Elimination urinary Eliminatio Active 2020-0 Pura incontinenc n 2-04 (Bobby) e 10:: [id number] Neuro confusion Neuro/Emot Active 2020-0 Pura present ion 2-04 (Bobby) 10:: [id number] Neuro anxiety Neuro/Emot Active 2020-0 Pura present ion 2-04 (Bobby) 10:: [id number] Neuro depressive Neuro/Emot Active 2020-0 Pura feelings ion 2-04 (Bobby) present 10:: [id number] Activity ADL Activity Active 2020-0 Pura assistance 2-04 (Bobby) required 10:25: [place] [id number] Activity self-care Activity Active 2020-0 Pura deficit 2-04 (Bobby) 10:25: [place] [id number] Safety fall risk Safety Active 2020-0 Pura factor 2-04 (Bobby) present 10:25: [place] [id number] Safety risk for Safety Active 2020-0 Pura hospitaliza 2-04 (Bobby) tion 10:25: [place] [id number] Safety can be left Safety Active 2020-0 Pura alone for 2-04 (Bobby) only short 10:25: [place] [id number] Medication oral med Meds Active 2020-0 Pura assistance 2-04 (Bobby) required 10:25: [place] [id number] Musculoskel transfer Musculoske Active 2020-0 Pura etal assistance letal 2-04 (Bobby) required 10:25: [place] [id number] Musculoskel requires Musculoske Active 2020-0 Pura etal human letal 2-04 (Bobby) assist to 10:25: Deluca leave home 00 [id number] Safety structural Safety Active 2020-0 Obi barriers 2-04 Felicia present 13:37: [id number] Safety knowledge/s Safety Active 2020-0 Obi kill 2-04 Felicia deficit: pt 13:37: [id number] ROM ROM PT: ROM Active 2020-0 Obi deficit: LE 2-04 Felicia 13:37: [id number] ROM knowledge/s PT: ROM Active 2020-0 Obi kill 2-04 Kobziewicz deficit LE: 13:37: [id number] pt 00 Strength/To knowledge/s PT: Active 2020-0 Obi ne/Motor kill Strength 2-04 Felicia Control deficit LE: 13:37: [id number] pt 00 Bed mobility/tr PT/OT: Bed Active 2020-0 Obi Mobility/Tr ansfer Mobility/T 2-04 Felicia guidryfer device ransfer 13:37: [id number] present 00 Bed transfer PT/OT: Bed Active 2020-0 Obi Mobility/Tr deficit: Mobility/T 2-04 Felicia guidryfer shower/tub ransfer 13:37: [id number] Bed transfer PT/OT: Bed Active 2020-0 Obi Mobility/Tr deficit: Mobility/T 2-04 Kobzivandana ansfer vehicle ransfer 13:37: [id number] Bed knowledge/s PT/OT: Bed Active Obi Mobility/Tr kill Mobility/T 2-04 Kobzivandana ansfer deficit: pt ransfer 13:37: [id number] 00 Balance/End balance/deep fat cook fry PT/OT: Active Obi urance rdination Balance/En 2-04 Kobziewicz deficit durance 13:37: [id number] 00 OT: Self self-care OT: Active Obi Care deficit Self-Care 2-04 Kobziewicz 13:37: [id number] 00 OT: Self knowledge/s OT: Active Obi Care kill Self-Care 2-04 Kobziewicz deficit: pt 13:37: [id number] 00 Gait/Locomo stair PT/OT: Active Obi tion management Gait/Locom 2-04 Kobziewicz problems req otion 13:37: [id number] Gait/Locomo gait PT/OT: Active Obi tion assistive Gait/Locom 2-04 Kobziewicz problems device otion 13:37: [id number] present 00 Gait/Locomo knowledge/s PT/OT: Active Obi tion kill Gait/Locom 2-04 Kobziewicz problems deficit: pt otion 13:37: [id number] 00 Gait/Locomo gait PT/OT: Active Obi tion deficit Gait/Locom 2-04 Kobziewicz problems otion 13:37: [id number] 00 Allergies, Adverse Reactions, Alerts Allergy Allergy [...] 100 mg Unknown Perles 100 Perles 100 MDTrevorton mg capsule mg capsule Aspirin Aspirin Yes [...]
--- OUTSIDE RECORDS SUMMARY | 2019-05-05 12:40 | XMS REPORT | Summary of Care ---
:1945 Author Organization [facility] Address 1 [facility] [place] [address] Care Team Providers Name Role Phone Ira Bustos MD Primary Care Provider Reason for Referral Refer to Department Only (Routine) Status Reason Specialty Diagnoses / Referred By Referred To Procedures Contact Contact Pending Review Physical Therapy Diagnoses Joint stiffness of right lower leg Terese Robertson [facility] PHYSICAL OPERATIONS SUPERINTENDENT THERAPY 1 [facility] [address] [facility] [address] [facility]. [address] [address] [place] [id number] Phone: Phone: [phone] Refer to Department Only (Routine) Status Reason Specialty Diagnoses / Referred By Referred To Procedures Contact Contact Pending Review Diagnoses Failure of total knee replacement, subsequent encounter Megan Aviles MD [address] [place] [address] Scheduling Instructions Medicare Home Health: The pwav-hp-mzdj visit can be up to 90 days prior to the referral or within 30 days after the referral. The hayx-on-iqvl visit must be related to the reason for which Home Health is needed. See CMS Manual System - Medicare Benefit Policy under Additional Order Details. Reason for Visit Auth/Cert Status Reason Specialty Diagnoses / Procedures Referred By Contact Referred To Contact Procedures NM REVISE KNEE JOINT REPLACE,ALL PARTS Encounter Details Date Type Department Care Team Description 04/18/2019 - Hospital Encounter [facility] 2W Megan Aviles, Inpatient 04/19/2019 1 [place] [address] [address] [phone] [place] [address] [phone] Allergies No Known Allergiesdocumented as of this encounter (statuses as of 04/20/2019) Medications Medication Sig Dispensed Refills Start Date [...] PO) mouth TWICE DAILY. Multiple Take by 0 Active Vitamins-Minerals mouth. (MULTIVITAMIN ADULT PO) ondansetron (ZOFRAN) 4 Take 4 mg by 0 Active MG Oral Tab mouth EVERY EIGHT HOURS NEEDED for Nausea/Vomitin g. Albuterol Sulfate Take by 0 Active (VENTOLIN [...] MG Oral Cap mouth EVERY TWELVE HOURS. HYDROmorphone (DILAUDID) Take 1 Tab by 30 Tab 0 04/19/2019 Active 2 MG Oral Tab mouth EVERY FOUR HOURS NEEDED (severe pain). Max Daily Amount: 12 mg. morphine (ORAMORPH SR, Take 1 Tab by 10 Tab 0 04/19/2019 Active MS CONTIN) 15 MG Oral mouth EVERY Tab CRIndications: Pain TWELVE HOURS. Max Daily Amount: 30 mg. Indications: Pain aspirin 81 MG Oral Tab Take 1 Tab by 0 04/19/2019 Active mouth TWICE DAILY. cyclobenzaprine Take 1 Tab by 15 Tab 0 04/19/2019 04/24/2019 Active (FLEXERIL) 5 MG Oral Tab mouth THREE TIMES DAILY NEEDED (muscle spasms) for up to 5 days. 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 Overview: Added automatically from request for surgery [id number] Rosacea 02/24/2019 Uncomplicated asthma 02/24/2019 Benign essential tremor 02/23/2019 Depression, recurrent 02/23/2019 Hiatal hernia with GERD 02/23/2019 Laryngopharyngeal reflux 02/23/2019 Postoperative hypothyroidism 02/23/2019 Failed arthroplasty, sequela 02/22/2019 documented as of this encounter (statuses as of 04/20/2019) Social History Tobacco Use Types Packs/Day Years [...] Sign Reading Time Taken Comments Blood Pressure 92/57 04/19/2019 1:15 PM EST Pulse 68 04/19/2019 1:15 PM EST Temperature 36.1 04/19/2019 1:15 PM EST C (97 F) Respiratory Rate 16 04/19/2019 1:15 PM EST Oxygen Saturation 100% 04/19/2019 1:15 PM EST Inhaled Oxygen Concentration - - Weight 65.3 kg (144 lb) 04/18/2019 6:38 AM EST Height 154.9 cm (5' 1") 04/18/2019 6:38 AM EST Body Mass Index 27.21 04/18/2019 6:38 AM EST documented in this encounter Discharge Summaries Terese Robertson NP - 04/19/2019 1:55 PM EST [facility] Orthopedic SurgerySummary DISCHARGE SUMMARY Patient: Nika Man : 1945 Date of Service: 04/19/2019 Attending: MEGAN AVILES MD ,MD Attending this admission: MEGAN AVILES MD ,MD Date of admission: 04/18/19 Date of discharge: 04/19/2019 Disposition: Home diagnosis this admission: 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 female with long-standing history of right knee pain due to aseptic failure of previous right total knee arthroplasty She has had a lengthy course of conservative treatment which failed to provide any significant relief. Due to non-resolving symptoms, failure of conservative treatment, andnegative quality of life issues she elected to proceed with revision right total kneearthroplasty. She [facility] MEGAN AVILES MD, MD. She wastaken to the operating room on and under Spinal anesthesia underwent revision right total knee arthroplasty. Estimated blood loss was 200 cc's without replacement.She tolerated all procedures well without complications and transferred to recovery in stable condition. At that time an x-ray was taken of the right knee. This demonstrated all components to be in good positionand alignment without acute bony injury, fracture, or dislocation. [facility] Antibiotic prophylaxis was continued for 24 hourspostoperatively which she tolerated well without complications. Deep vein thrombosis prophylaxis was initiated at the end of the surgical case BETHANY stockings and venodynes. Aspirin 81 mg BID used Her Hemoglobin and hematocrit were monitored daily postoperatively. She participated in physical and occupational therapy throughout thepostoperative course. By day of discharge patient was able to ambulate well with a walker and able to transfer with minimal assistance. Physical and occupational therapy care and progress are as documented in the physicaland occupational therapy progress notes in the patient's electronic medical record for this admission. Patient does have history of has a past medical history of Benign essential tremor (02/23/2019), Depression, recurrent (HCC) (02/23/2019), Hiatal hernia with GERD (02/23/2019), Laryngopharyngeal reflux (02/23/2019), Osteoporosis of lumbar spine, Postoperative hypothyroidism (02/23/2019), Rosacea (02/24/2019), and Uncomplicated asthma (02/24/2019). and the appropriate medications were continued postoperatively asrecommended by the preoperative medical consult without complications. There were no complications due to patient's comorbidities. By postoperative day #1 patient is doing well. She is mobilizing well, is afebrile, vital signs srestable, pain is well controlled with oral medication without adverse effects gastrointestinal or otherwise, oral intake is being tolerated well, she is voiding well, and has had a bowel movement.Patient denies any chest pain shortness of breath, abdominal pain, nausea, vomiting, diarrhea, dizziness. Due to her stable condition at this time patient patient is being discharged to home in stable conditionwith good prognosis. Discharge instructions: Dressings to the right knee are to remain clean,dry, and intact and not to be removed unless saturated or changed by nurse. If there are any questions regarding the right knee or with the dressings please call Dr. Aviles or Terese Robertson NP at [phone]. If there are any medical question or concerns please call Ira Bustos at [phone]. She is to continue with physical and occupational therapy for range of motion, strengthening, and gait training, weight bearing as tolerated to right lower extremity. Activity: Weightbearing as tolerated with a walker for the next 2-4 weeks then may transition to a cane which is to be used in the contralateral upper extremity. No kneeling on right knee. Continue with range of motion and strengthening exercises as illustrated in joint camp. Followup withDr. Stefan Robertson NP in 2 weeks or call prior if any problems. Followup with family physician as previouslyscheduled. Resume previous diet prior to admission. Discharge medications: Current Discharge Medication List START taking these medications Aspirin 81 MG Tabs Dose: 81 mg Refills: 0 Take 1 Tab by mouth TWICE DAILY. celeCOXIB 200 MG Caps Commonly known as: CeleBREX Dose: 200 mg Quantity: 60 Cap Refills: 0 Take 1 Cap by mouth EVERY TWELVE HOURS. cyclobenzaprine 5 MG Tabs Commonly known as: FLEXERIL Dose: 5 mg Quantity: 15 Tab Refills: 0 Take 1 Tab by mouth THREE TIMES DAILY NEEDED (muscle spasms) for up to 5 days. HYDROmorphone 2 MG Tabs Commonly known as: DILAUDID Dose: 2 mg Quantity: 30 Tab Refills: 0 Take 1 Tab by mouth EVERY FOUR HOURS NEEDED (severe pain). Max Daily Amount : 12 mg. morphine 15 MG Tbcr Commonly known as: ORAmorph SR, MS CONTIN Dose: 15 mg For: Pain Quantity: 10 Tab Refills: 0 Take 1 Tab by mouth EVERY TWELVE HOURS. Max Daily Amount: 30 mg. Indications: Pain CONTINUE these medications which have NOT CHANGED LAY ALLERGY 180 MG Tabs Generic drug: fexofenadine Dose: 180 mg Refills: 0 Take 180 mg by mouth DAILY. buPROPion 100 MG Tb12 Commonly known as: WELLBUTRIN SR Dose: 100 mg Refills: 0 Take 100 mg by mouth DAILY. famotidine 20 MG Tabs Commonly known as: PEPCID Dose: 40 mg Refills: 0 Take 40 mg by mouth EVERY BEDTIME. INDERAL PO Dose: 20 mg Refills: 0 Take 20 mg by mouth TWICE DAILY. Lansoprazole 30 MG Cpdr Dose: 30 mg Refills: 0 Take 30 mg by mouth TWICE DAILY. MULTIVITAMIN ADULT PO Refills: 0 Take by mouth. ondansetron 4 MG Tabs Commonly known as: ZOFRAN Dose: 4 mg Refills: 0 Take 4 mg by mouth EVERY EIGHT HOURS NEEDED for Nausea/Vomiting. PAZEO 0.7 % Soln Generic drug: Olopatadine HCl Refills: 0 Place in both eyes. QVAR 80 MCG/ACT Aers Generic drug: Beclomethasone Dipropionate INHALATION MDI 80 mcg/act (QVAR) Refills: 0 Take by inhalation. SYNTHROID 88 MCG Tabs Generic drug: levothyroxine Dose: 75 mcg Refills: 0 Take 75 mcg by mouth BEFORE BREAKFAST. Topiramate 50 MG Tabs Refills: 0 Take by mouth TWICE DAILY. trazodone 50 MG Tabs Commonly known as: DESYREL Dose: 50 mg Refills: 0 Take 50 mg by mouth EVERY BEDTIME. VENTOLIN HFA IN Refills: 0 Take by inhalation. Where to Get Your Medications These medications were sent to [facility]/pharmacy [address] [place] [address] - [address] [place] [address] [address] celeCOXIB 200 MG Caps cyclobenzaprine 5 MG Tabs HYDROmorphone 2 MG Tabs morphine 15 MG Tbcr Information about where to get these medications is not yet available Ask your nurse or doctor about these medications Aspirin 81 MG Tabs Terese Robertson, OPERATIONS SUPERINTENDENT 04/19/2019 13:55 documented in this encounter Discharge Instructions Pura Merrill RN - 04/19/2019Provider's Instructions Reason for Admission or Diagnosis: Failed previous right total knee arthroplasty - aseptic Procedures this Admission:right total knee arthroplasty revision arthroplasty Associated Condition Acutely Managed: None Secondary Procedures this Admission: None Consultations this Admission: physical therapy, occupational therapy, x-ray, routine labs, social work, discharge planning. Activity/Restrictions: weight bearing as tolerated with walker. No kneeling on right knee. Skin/Wound Care: Keep dressing right knee clean, dry, and intact. Do not remove. Any questions or concerns regarding dressing or knee please call MEGAN AVILES MD , office at [phone] Discharge Diet: Resume prior to admission diet Follow up: 2-3 weeks with MEGAN AVILES MD, MD office Discharge Provider: Terese Robertson NP Attending: MEGAN AVILES MD , Time: 13:54 04/19/2019 Problems to report to your Physician: Excessive pain or discomfort Fever > 100.5 degrees Difficulty breathing Increase or smell in wound drainage Nursing Discharge instructions: Continue to do exercises as instructed Continue using IS, Deep breathe and cough as instructed Continue to do ankle pumps as instructed Call if any questions Patient Education Partial Knee Replacement Discharge Instructions About this topic Many people suffer from a type of arthritis called osteoarthritis. Over time, the cartilage which helps our joints move can wear down and cause the bones to rub against each other. This causes pain, stiffness, swelling, and loss of movement. The knee is made up of three parts or compartments. For some patients, only one or two parts of the joint have osteoarthritis. Partial knee replacement is surgery that replaces only the part of the knee joint that is damaged, not the whole knee. This spares the healthy bone and tissue near the joint. What care is needed at home? Ask your doctor what you need to do when you go home. Make sure you ask questions if you do notunderstand what the doctor says. This way you will know what you need to do. You may need to have someone help you at home for the first few weeks. Protect your leg from injury. Keep your house safe and clutter-free. Sit or lie with your leg above the heart level. This will help with swelling and pain. Place an ice pack wrapped in a towel or plastic bag over the painful part 4 to 6 times per day for the first couple of days. Never put ice right on the skin. Do not leave the ice on more than 10 to 15 minutes at a time. Talk to your doctor about how to care for your cut site. Ask your doctor about: ? When you should change your bandages ? How to care for your cut sites ? When you may take a bath or shower ? When you can go back to your normal activities like work, driving, or sex Be sure to wash your hands before touching your wound or dressing. What follow-up care is needed? Some people are not ready to go straight home after surgery. You may need to go to a rehab or snf facility for more therapy. Your doctor may ask you to make visits to the office to check on your progress. Be sure to keepthese visits. When you are able to leave your home, you may need more physical therapy ( PT) at an outpatient clinic. If you have stitches or clemencia, you will need to have them taken out. Your doctor will often want to do this in 1 to 2 weeks. An x-ray test may be taken at the doctor's office after surgery to check on how the bones are healing. What drugs may be needed? The doctor may order drugs to: Help with pain and swelling Prevent infection Prevent blood clots Will physical activity be limited? You will need to use a device to help you walk, such as a walker or crutches. Follow your doctor's orders on how much weight you can put on your operated leg. This can range from no weight-bearingto full weight-bearing. It is important to get up and move around, even just walking around in your home. Walk every hour while you are awake during the day. Moving around helps healing and lessens problems after surgery. You will be able to do more as you get stronger. Your physical therapist can talk with you about a walking program. Most often, you should limit stair climbing to one flight of stairs per day whenyou first return home. Your weight, level of daily activity, and bone health will play a role in how long your implantwill last. Also, having the implant in the right position and lined up the right way will give it a longer life. What problems could happen? Infection Bleeding Blood clots Stiff joints Not able to get the implant in the best position Need to change to total joint replacement during surgery When do I need to call the doctor? Sudden shortness of breath or a sudden onset of chest pain, more pain or swelling in your leg, pain in the calf. These could be signs that a blood clot has traveled to your lungs. Go to the ER right away. Signs of infection. These include a fever of 100.4F (38C) or higher , chills, very bad sore throat, ear or sinus pain, cough, more sputum or change in color of sputum, pain with passing urine, mouth sores, or wound that will not heal. Signs of wound infection. These include swelling, redness, warmth around the wound; too much pain when touched; yellowish, greenish, or bloody discharge ; foul smell coming from the cut site; cut site opens up. Pain is not helped by taking drugs Your toes or foot look dark in color, feel numb or cool to the touch Teach Back: Helping You Understand The Teach Back Method helps you understand the information we are giving you. The idea is simple. After talking with the staff, tell them in your own words what you were just told. This helps to make sure the staff has covered each thing clearly. It also helps to explain things that may have been a bit confusing. Before going home, make sure you are able to do these: I can tell you about my procedure. I can tell you what may help ease my pain. I can tell you how to care for my cut site. I can tell you what I will do if I have more pain or swelling or my toes or foot looks dark or feels cool. Where can I learn more? [employer] https://orthoinfo.aaos.org/en/treatment/uxtvkaghlsjutezy-crxy-gtotzosapvj/ Last Reviewed Date 2018-01-05 Consumer Information Use and Disclaimer This information is not specific medical advice and does not replace information you receive from your health care provider. This is only a brief summary of general information. It does NOT include allinformation about conditions, illnesses, injuries, tests, procedures, treatments, therapies, discharge instructions or life-style choices that may apply to you. You must talk with your health care provider for complete information about your health and treatment options. This information should not beused to decide whether or not to accept your health care providers advice, instructions or recommendations. Only your health care provider has the knowledge and training to provide advice that isright for you. Copyright Copyright 2019 [employer] and its affiliates and/or licensors. All rights reserved. or concerns AttachmentsThe following attachments cannot be sent through Care Everywhere.Total Knee Replacement (Monegasque)documented in this encounter Progress Notes Terese Robertson NP - 04/19/2019 1:48 PM EST [place] [address] Home Health Attestation Progress Note Patient: Nika Man Admission Date: 04/18/19 Discharge Date: 04/19/19 Attending: MEGAN AVILES MD ,MD PCP: Ira Bustos Orders Placed This Encounter Procedures REFER TO HOME HEALTH Patient to be discharged/referred to home with Home Health services: Longterm: medication management and disease process teaching Physical Therapy: gait training and home safety Patient is homebound secondary to diagnosis of s/p failed total knee replacement and walks with device and assist of 1 to leave her home Referral Priority: Routine Referral Type: Refer to Department Only Number of Visits Requested: 1 Author: Terese Robertson NP 04/19/2019 13:48 Terese Powers NP - 04/19/2019 7:56 AM EST [facility] Orthopedic Surgery Progress Note Patient: Nika Man : 1945 Date of Service: 04/19/2019 Date ofadmission: 04/18/19 Attending: MEGAN AVILES MD ,MD Post op day: 1 S:Patient indicates she is doing well already feeling better than she did prior to revision. Complains of moderate pain with good pain control with medications without adverse reactions. No problems through night. Positive POintake, void, and flatus. Denies CP, SOB, ABD pain, N/V/D, dizziness, or VILLAGRAN. O: Vitals: Blood pressure 120/70, pulse 92, temperature 98.4 F (36.9 C) , temperature sourceTemporal, resp. rate 18, height 5' 1" (1.549 m), weight 144 lb (65.3 kg), SpO2 100 %.. I/O: Intake/Output Summary (Last 24 hours) at 04/19/2019 0756 Last data filed at 04/19/2019 0600 Gross per 24 hour Intake 1840 ml Output 2000 ml Net -160 ml Patient is sitting/lying inbed/chair in NAD. Alert and cooperative with examination. Dressing to the right knee is clean, dry, and intact. Wound/skin benign. Muscle compartments soft. Calf is soft andnon tender. There is no clinicaldeformity. Distal neurovasular status and range of motion is intact. Labs: H/H: WBC Count Date Value Ref Range Status 04/17/2019 6.53 3.98 - 10.04 K/uL Final Hemoglobin Date Value Ref Range Status 04/19/2019 11.8 11.2 - 15.7 g/dL Final Comment: Verified by review Hematocrit Date Value Ref Range Status 04/19/2019 37.4 34.1 - 44.9 % Final Platelet Count Date Value Ref Range Status 04/17/2019 261 182 - 369 K/uL Final BMP: Sodium Date Value Ref Range Status 04/17/2019 142 134 - 145 mmol/L Final Potassium Date Value Ref Range Status 04/17/2019 4.1 3.5 - 5.1 mmol/L Final Chloride Date Value Ref Range Status 04/17/2019 105 98 - 107 mmol/L Final CO2 Date Value Ref Range Status 04/17/2019 27 22 - 30 mmol/L Final Glucose Date Value Ref Range Status 04/17/2019 104 70 - 99 mg/dl Final BUN Date Value Ref Range Status 04/17/2019 19 7 - 17 mg/dl Final Creatinine Date Value Ref Range Status 04/17/2019 0.9 0.7 - 1.2 mg/dl Final Calcium Date Value Ref Range Status 04/17/2019 9.7 8.3 - 10.1 mg/dl Final Measures: DVT Prophylaxis:aspirin GI Prophylaxis: pepcid Nutrition: regular Marmolejo remains in place for the following reason(s): No marmolejo present A/P: 1. 1 day status post revision right total knee arthroplasty; continue with TJP; Physical therapy, occupational therapy; weight bearing as tolerated. 2. Acute bloodloss anemia with loss of 3 gram Hgb - asymptomatic; continue to follow. 3. DVT prophylaxis with Aspirin 4. Pulmonary Prophylaxis: Incentive spirometer and deep breath/cough as instructed. Marmolejo: No marmolejo present. 6. Discharge planning: Consult placed to social services technician, will plan for discharge on POD #1-2 to home pending PT/OTrecommendation and patient progression. 7. History of has a past medical history of Benign essential tremor (02/23/2019 ), Depression, recurrent (HCC) (02/23/2019), Hiatal hernia with GERD (02/23/2019) , Laryngopharyngeal reflux (02/23/2019), Osteoporosis of lumbar spine, Postoperative hypothyroidism (02/23/2019), Rosacea (02/24/2019), and Uncomplicated asthma (02/24/2019).. Terese Robertson NP 04/19/2019 07:56. documented in this encounter Plan of Treatment Date Type Specialty Care Team Description 02/23/2019 Anesthesia Event [facility] Louis Salinas MD [address] [place] [address] [phone] 05/02/2019 Office Visit Orthopedics Terese Robertson NP [address] [place] [address] 05/30/2019 Office Visit Orthopedics Meagn Aviles MD [address] [place] [address] [phone] Name Type Priority Associated Diagnoses Order Schedule REFER TO HOME HEALTH Referral Routine Failure of total knee Ordered: 2019 replacement, subsequent encounter REFER TO PHYSICAL Referral Routine Joint stiffness of 99 Occurrences starting THERAPY / REHAB right lower leg 04/19/2019 until 04/19/2020 Health Maintenance Due Date Last Done Comments [...] of this encounter Implants Implanted Type Area Manager Contract Device Shelf Model / Identifier Expiration Serial / Lot Date Smart Set Cement- 40hv - [id number] Right: DEPUY 08/18/2020 [id number] / Implanted: Qty: 3 on 04/18/2019 by Megan Aviles MD at [facility] Knee / [id number] Nexgen Femoral Augment Block Right: [employer] 08/19/2027 [id number] / Implanted: Qty: 1 on 04/18/2019 by Megan Aviles MD at [facility] Knee / [id number] Nexgen Stem Extension, Offset Right: [employer] 09/18/2027 [id number] / Implanted: Qty: 1 on 04/18/2019 by Megan Aviles MD at [facility] Knee / [id number] Nexgen Stem Extemsion, Straight Right: [employer] 09/18/2027 [id number] 10-13 / Implanted: Qty: 1 on 04/18/2019 by Megan Aviles MD at [facility] Knee / [id number] Nexgen Stemmed Tibial Component Right: [employer] 08/18/2028 [id number] [id number] / Implanted: Qty: 1 on 04/18/2019 by Megan Aviles MD at [facility] Knee / [id number] Nexgen Complete Knee Solution _ Legacy Knee- Femoral Component Right: 04/20/2025 / Implanted: Qty: 1 on 04/18/2019 by Megan Aviles MD at [facility] Knee / [id number] [employer] Complete Knee Solution- Legacy Nee - Constrained Condylar Knee- Articular Surface Right: 09/17/2026 / Implanted: Qty: 1 on 04/18/2019 by Megan Aviles MD at [facility] Knee / [id number] documented as of this encounter Procedures Procedure Name Priority Date/Time Associated Comments Diagnosis HEMOGLOBIN & Routine 04/19/2019 4:45 Results for this HEMATOCRIT AM EST procedure are in the results section. XR KNEE 1 OR 2 VIEWS Routine 04/18/2019 12:18 Results for this RIGHT PM EST procedure are in the results section. STUDY ATTACHMENT 04/18/2019 12:00 PM EST CARDIOLOGY TEST RESULT 04/18/2019 12:00 PM EST SIGN PERMIT 04/18/2019 12:00 PM EST SIGN PERMIT 04/18/2019 12:00 PM EST TISSUE EXAM Routine 04/18/2019 9:30 Failure of total Results for this AM EST knee replacement, procedure are in subsequent the results encounter section. CBC WITH DIFFERENTIAL Routine 04/17/2019 9:07 Results for this AM EST procedure are in the results section. TYPE AND SCREEN Routine 04/17/2019 9:07 Results for this AM EST procedure are in the results section. COMPREHENSIVE Routine 04/17/2019 9:07 Results for this METABOLIC PANEL AM EST procedure are in the results section. documented in this encounter Results HEMOGLOBIN & HEMATOCRIT (04/19/2019 4:45 AM EST) Hemoglobin 11.8Comment: 11.2 - 15.7 [facility] Verified by review g/dL LABORATORY Hematocrit 37.4 34.1 - 44.9 % [facility] Specimen Blood - Blood specimen (specimen) Performing Organization Address City/State/Zipcode Phone Number [facility] [address] [place] [address] XR KNEE 1 OR 2 VIEWS RIGHT (04/18/2019 12:18 PM EST) Specimen Impressions Performed At Portable study showing recent postoperative changes with revised right knee arthroplasty now in position. Urgency: Routine. This is a routine medical imaging report. Recommendation: No specific imaging recommendation. Signed by William Campuzano MD on 04/18/2019 12:27 PM Narrative Performed At Procedure(s): XR KNEE 1 OR 2 VIEWS RIGHT Date of service: 04/18/2019 12:07 PM Provided clinical information: 73 years, Female, "post op" Procedure and materials: 2 portable views right knee Comparison studies: 02/23/2019 Observations: . Revised right knee arthroplasty now seen in position Hardware is intact. No obvious periprosthetic fracture is seen. Skin deformity and subcutaneous air compatible with recent surgery is noted. Skin clemencia are also noted. Procedure Note Interface, Rad Results - 04/18/2019 12:29 PM EST Procedure(s): XR KNEE 1 OR 2 VIEWS RIGHT Date of service: 04/18/2019 12:07 PM Provided clinical information: 73 years, Female, "post op" Procedure and materials: 2 portable views right knee Comparison studies: 02/23/2019 Observations: . Revised right knee arthroplasty now seen in position Hardware is intact. No obvious periprosthetic fracture is seen. Skin deformity and subcutaneous air compatible with recent surgery is noted. Skin clemencia are also noted. IMPRESSION Portable study showing recent postoperative changes with revised right knee arthroplasty now in position. Urgency: Routine. This is a routine medical imaging report. Recommendation: No specific imaging recommendation. Signed by William Campuzano MD on 04/18/2019 12:27 PM CARDIOLOGY TEST RESULT (04/18/2019 12:00 PM EST) Narrative Performed At TISSUE EXAM (04/18/2019 9:30 AM EST) Case Report Surgical Pathology Case: [id number] [facility] Authorizing Provider: Megan Aviles MD Collected: 04/18/2019 09:30 AM LABORATORY Ordering Location: [facility] Received: 04/18/2019 12:46 PM Preprocedure Pathologist: Sudheer Tony MD Specimen: knee, replacement, right, Right Total Knee Revision Pre-Op Diagnosis T84.018D, Z96.659 - [facility] Failure of total LABORATORY knee replacement, subsequent encounter [ICD-10-CM] Post-Op Diagnosis T84.018D, Z96.659 - [facility] Failure of total LABORATORY knee replacement, subsequent encounter [ICD-10-CM] FINAL DIAGNOSIS Surgical hardware [facility] Electronically signed (right knee LABORATORY by heidi Tony) cresencio Chavez MD on only. 04/19/2019 at 8:41 AM Microscopic Microscopic [facility] Description examination is LABORATORY performed. Gross Description The specimen is labeled with patient's name and hospital number" total right knee replacement". The specimen is received in formalin and consists of surgical hardware including a plastic tibial plate a [facility] nd metal plate and carrie. Also present are a curved femoral head prosthesis, with some adherent bone cement is present on the undersurface of the 2 metal fragments. No numbers or identifying avina are seen. For gross only description LABORATORY Gross description is reviewed before signout by Sudheer Tony MD Disclaimer Gross description [facility] is performed at the LABORATORY [facility], [address] [place] [address]. Specimen Other - knee, replacement, right Performing Organization Address City/[facility]/[place] [address] TYPE AND SCREEN (04/17/2019 9:07 AM EST) ABO/RH Type O POS BLOOD BANK Antibody Screen Interp NEG BLOOD BANK Specimen Blood - Blood specimen (specimen) Performing Organization Address City/[facility]/Zipcode Phone [place] [address] COMPREHENSIVE METABOLIC PANEL (04/17/2019 9:07 AM EST) Sodium 142 134 - 145 mmol/L [facility] Potassium 4.1 3.5 - 5.1 mmol/L [facility] Chloride 105 98 - 107 mmol/L [facility] CO2 27 22 - 30 mmol/L [facility] Calcium 9.7 8.3 - 10.1 mg/dl [facility] Albumin 4.3 3.5 - 5.0 g/dl [facility] BUN 19 (H) 7 - 17 mg/dl [facility] Creatinine 0.9 0.7 - 1.2 mg/dl [facility] Glucose 104 (H) 70 - 99 mg/dl [facility] Total Protein 7.3 6.3 - 8.2 g/dl [facility] Total Bilirubin 0.3 0.0 - 1.1 MG/DL [facility] AST 21 15 - 46 U/L [facility] ALT <10 9 - 52 U/L [facility] Alkaline 118 40 - 150 U/L [facility] LABORATORY eGFR >60 See Interpretation [place] Comment: Below ml/min/1.73ml [facility] Estimated GFR Interpretation: LABORATORY Above 60ml/min/1.73m2 = Normal Renal Function 30-59 ml/min/1.73m2 = Stage 3 Chronic Kidney Disease 15-29 ml/min/1.73m2 = Stage 4 Chronic Kidney Disease Less than 15 ml/min/1.73m2 = Stage 5 Chronic Kidney Disease The GFR value is calculated using the Modification of Diet in Renal Disease ( MDRD) Study Equation which can be found at: https://www.kidney.org/content/jyua-nunes-epjyhlaj BUN/Creatinine 21 6 - 22 RATIO [facility]ITAL LABORATORY Anion Gap 10 3 - 11 mmol/L [facility] A/G Ratio 1.4 0.8 - 2.0 ratio [facility] Specimen Blood - Blood specimen (specimen) Performing Organization Address City/State/Zipcode Phone Number [facility] [address] [place] [address] CBC WITH DIFFERENTIAL (04/17/2019 9:07 AM EST) WBC Count 6.53 3.98 - 10.04 K/uL [facility] RBC Count 4.68 3.93 - 5.22 M/UL [facility] Hemoglobin 14.8 11.2 - 15.7 g/dL [facility] Hematocrit 45.1 (H) 34.1 - 44.9 % [facility] MCV 96.4 (H) 79.4 - 94.8 FL [facility] MCH 31.6 25.6 - 32.2 PG [facility] MCHC 32.8 32.2 - 35.5 g/dL [facility] Platelet Count 261 182 - 369 K/uL [facility] MPV 9.1 (L) 9.4 - 12.3 FL [facility] RDW 12.6 11.7 - 14.4 % [facility] Neutrophil % 69.2 34.0 - 71.1 % [facility] Lymphocyte % 17.3 (L) 19.3 - 51.7 % [facility] Monocyte % 9.2 4.7 - 12.5 % [facility] Eosinophil % 2.9 0.7 - 5.8 % [facility] Basophil % 0.9 0.1 - 1.2 % [facility] Neutrophil # 4.52 1.56 - 6.13 K/UL [facility] Lymphocyte # 1.13 (L) 1.18 - 3.74 K/UL [facility] Monocyte # 0.60 0.24 - 0.86 K/UL [facility] Eosinophil # 0.19 0.04 - 0.36 K/UL [facility] Basophil # 0.06 0.01 - 0.08 K/UL [facility] Immature Gran % 0.5 (H) 0.0 - 0.4 % [facility] Immature Gran # 0.03 0.00 - 0.03 K/uL [facility] Specimen Blood - Blood specimen (specimen) Performing Organization Address City/State/Zipcode Phone Number [facility] [address] [place] [address] documented in this encounter Visit Diagnoses Diagnosis Failure of total knee replacement, subsequent encounter Joint stiffness of right lower leg documented in this encounter Administered Medications Medication Order MAR Action Action Date Dose Rate Site acetaminophen (TYLENOL) tablet Given 04/19/2019 3:02 PM EST 1,000 mg 1,000 mg 1,000 mg, Oral, Q8 HRS, First dose on Tue04/18/19 at 2200, Until Discontinued Given 04/19/2019 5:48 AM EST 1,000 mg Given 04/18/2019 9:16 PM EST 1,000 mg acetaminophen (TYLENOL) tablet 1,000 mg Given 04/18/2019 7:22 AM EST 1,000 mg 1,000 mg, Oral, X1, 1 dose, First dose on Tue04/18/19 at 0620, 2 Day of Surgery Pre Procedure aspirin (ECOTRIN) enteric coated tablet 325 Given 04/19/2019 8:52 AM EST 325 mg mg 325 mg, Oral, BID, 30 doses, First dose on Tue04/18/19 at 2100, Last dose on Tue05/03/19 at 0900, This medication dosage form should NOT be crushed. Please call the inpatient Pharmacy for more information. [facility] ext. [phone] [place] ext. [phone] [facility] ext. [phone] , Given 04/18/2019 8:24 PM EST 325 mg buPROPion (WELLBUTRIN SR) 12 hour tablet 100 Given 04/19/2019 11:43 AM EST 100 mg mg 100 mg, Oral, DAILY, First dose on Tue04/18/19 at 1540, Until Discontinued, Pt's own med Checked 04/19, This medication dosage form should NOT be crushed. , , PT'S OWN MED, , [facility] [id number], ceFAZolin (ANCEF) IV New Bag 04/19/2019 12:15 AM EST 1,000 mg Arm - Lower Left premix 1,000 mg 1,000 mg, Intravenous, Q8 HRS, 2 doses, First dose on Tue04/18/19 at 1700, Last dose on Tue04/19/19 at 0100 New Bag 04/18/2019 4:20 PM EST 1,000 mg celeCOXIB (CeleBREX) capsule 200 mg Given 04/19/2019 5:48 AM EST 200 mg 200 mg, Oral, Q12 HRS, First dose on Tue04/18/19 at 1800, Until Discontinued celeCOXIB (CeleBREX) capsule 200 mg Given 04/18/2019 7:23 AM EST 200 mg 200 mg, Oral, X1, 1 dose, First dose on Tue04/18/19 at 0620, 2 Day of Surgery Pre Procedure dexamethasone (DECADRON) injection 4 mg Given 04/19/2019 10:26 AM EST 4 mg 4 mg, Intravenous Push, X1, 1 dose, First dose (after last reorder) on Tue04/19/19 at 1030 famotidine (PEPCID) tablet 40 mg Given 04/18/2019 8:24 PM EST 40 mg 40 mg, Oral, QHS, First dose on Tue04/18/19 at 2100, Until Discontinued FentaNYL (PF) (SUBLIMAZE) injection (PF) 50 Given 04/18/2019 2:13 PM EST 25 mcg mcg 50 mcg, Intravenous Push, Q5 MIN PRN, 2 doses, Starting Tue04/18/19 at 1149, Until Tue04/18/19 at 1553, Moderate Pain (pain scale 4-6) - IV - 1st line - if immediate effect required or patient cannot tolerate PO, Severe Pain (pain scale 7-10) - IV - 1st line - if immediate effect required or patient cannot tolerate PO, 4 Recovery gabapentin (NEURONTIN) capsule 300 mg Given 04/18/2019 8:24 PM EST 300 mg 300 mg, Oral, QHS, First dose on Tue04/18/19 at 2100, Until Discontinued HYDROmorphone (DILAUDID) tablet 2 mg Given 04/19/2019 3:03 PM EST 2 mg 2 mg, Oral, Q4 HRS PRN, Starting Tue04/18/19 at 1533, Until Tue04/19/19 at 1902, Severe Pain (pain scale 7-10)PO 2nd line - if immediate effect not required & can tolerate PO & still has severe pain 2 hrs after admin of 1st line agent or did not tolerate 1st line agent Given 04/19/2019 10:15 AM EST 2 mg Given 04/18/2019 4:20 PM EST 2 mg lactated ringers IV New Bag 04/18/2019 2:42 PM EST 100 mL/hr Intravenous, at 100 mL/hr, PRU CONTINUOUS, Starting Tue04/18/19 at 1200, Until Tue04/18/19 at 1553, 4 Recovery, PRU, levothyroxine (SYNTHROID) tablet 75 mcg Given 04/19/2019 5:48 AM EST 75 mcg 75 mcg, Oral, PRE BREAKFAST, First dose on Tue04/19/19 at 0630, Until Discontinued midazolam (VERSED) injection 0.5 mg New 04/18/2019 12:27 PM EST 0.5 mg 0.5 mg, Intravenous, Q5 MIN PRN, 2 doses, Starting Tue04/18/19 at 1149, Until Tue04/18/19 at 1553, Anxiety - IV - 1st line - if immediate effect required or patient cannot tolerate PO, 4 Recovery MIDAZOLAM HCL (PF) 2 MG/2ML IJ SOLN 1 dose, Starting Tue04/18/19 at 0723, Until Tue04/18/19 at 0723, ALBINO THOMPSON : cabinet override, ALBINO THOMPSON: cabinet override, morphine (ORAmorph SR, MS CONTIN) controlled Given 04/19/2019 5:48 AM EST 15 mg release tablet 15 mg 15 mg, Oral, Q12 HRS, 4 doses, First dose on Tue04/18/19 at 1800, Last dose on Tue04/20/19 at 0600, This medication dosage form should NOT be crushed. Please call the inpatient Pharmacy for more information. [facility] ext. [phone] [place] ext. [phone] [facility] ext. [phone] , ondansetron (ZOFRAN) injection 4 mg New Bag 04/19/2019 6:10 AM EST 4 mg Hand- Left 4 mg, Intravenous, Q8 HRS PRN, Starting Tue04/18/19 at 1533, Until Tue04/19/19 at 1902, Nausea/Vomiting - IV - 1st line - If immediate effect required or patient cannot tolerate PO pantoprazole (PROTONIX) enteric coated tablet Given 04/19/2019 5:48 AM EST 40 mg 40 mg 40 mg, Oral, PRE BREAKFAST, First dose on Tue04/19/19 at 0630, Until Discontinued Given 04/18/2019 5:52 PM EST 40 mg polyethylene glycol (MIRALAX) oral pack 17 g Given 04/18/2019 4:20 PM EST 17 g 17 g, Oral, QPM, First dose on Tue04/18/19 at 1700, Until Discontinued POVIDONE-IODINE 10 % EX SOLN 1 dose, Starting Tue04/18/19 at 0701, Until Tue04/19/19 at 1902, YOVANY LOPEZ: cabinet override, YOVANY LOPEZ: cabinet override, propranolol (INDERAL) tablet 20 mg Given 04/19/2019 11:42 AM EST 20 mg 20 mg, Oral, BID, First dose on Tue04/19/19 at 0920, Until Discontinued, [facility] [place] rx [id number] checked by pharmacy kk, May take own, [facility] [place] rx [id number] checked by pharmacy kk, topiramate (TOPAMAX) tablet 50 mg Given 04/19/2019 8:53 AM EST 50 mg 50 mg, Oral, BID, First dose on Tue04/18/19 at 2100, Until Discontinued Given 04/18/2019 5:49 PM EST 50 mg trazodone (DESYREL) tablet 50 mg Given 04/18/2019 8:24 PM EST 50 mg 50 mg, Oral, QHS, First dose on Tue04/18/19 at 2100, Until Discontinued documented in this encounter Insurance Payer Benefit Plan / Subscriber ID Effective Phone Address Type Group Dates MEDICARE MEDICARE PART A xxxxxxxxxxx 2012-Prese Medicare & B nt COMMERCIAL COMMERCIAL xxxxxxxxx Effective for Commercial GENERIC GENERIC PLAN all dates ([place]) [place] [address] documented as of this encounter Advance Directives Code Status Date Activated Date Inactivated Comments Full Code 04/18/2019 3:33 PM Does the patient have decision making capacity? Yes Order was discussed with: Patient I discussed all options and patient/surrogate requested and agreed to: Full Code
--- OUTSIDE RECORDS SUMMARY | 2019-05-05 12:40 | XMS REPORT ---
:1945 Author Organization [facility] Care Team Providers Name Role Phone Unavailable Unavailable Unavailable Problems Condition Condition Condition Status Onset Resolution Last Treating Comments Name Details Category Date Date Treatment Clinician Date Broken Broken Diagnosis Active Tika internal internal 04-19 Wendela right knee right knee prosthesis, prosthesis, subsequent [...]
[2019-05-05 12:51] VITALS: BP 135/77
--- NOTE | 2019-05-05 13:10 | UC ---
Lower Extremity/Ankle HPI - HPI Summary HPI Summary: 73 yo, 2-1/2 weeks post RIGHT TKR, who noted redness and mild pain in the left distal great toe this morning. No fever, chills, and pain is mild. Her primary concern is the recent knee replacement, which is a second time replacement. Post op course is otherwise progressing well. No calf pain. No hx of vascular disease. using aspirin as anticoagulant. - History of Current Complaint Chief Complaint: UCLowerExtremity Stated Complaint: SORE TOE Time Seen by Provider: 05/05/19 12:58 Hx Obtained From: Patient, Family/Shipyard Supervisor - here with her . Onset/Duration: Gradual Onset, Lasting Hours Severity Initially: Mild Severity Currently: Mild Pain Intensity: 5 Aggravating Factor(s): Standing Alleviating Factor(s): Rest Able to Bear Weight: Yes - Risk Factors Gout Risk Factors: Age Over 40 DVT Risk Factors: Negative Septic Arthritis Risk Factor: Negative - Allergies/Home Medications Allergies/Adverse Reactions: Allergies Allergy/AdvReac Type Severity Reaction Status Date / Time No Known Allergies Allergy Verified 05/05/19 12:52 Home Medications: Home Medications Celecoxib [Celebrex 50 MG CAP] 1 tab PO BID 05/05/19 [History Confirmed 05/05/19 ] Fexofenadine (NF) [Tiffanie 180 (NF)] 1 tab PO DAILY 05/05/19 [History Confirmed 05/05/19] Hydromorphone HCl [Dilaudid] 1 tab PO Q4HR 05/05/19 [History Confirmed 05/05/19] Morphine Er 1 tab PO BID 05/05/19 [History Confirmed 05/05/19] PMH/Surg Hx/FS Hx/Imm Hx Previously Healthy: Yes Endocrine History: Hypothyroidism Neurological History: Other - essential tremor Psychological History: Depression - Surgical History Surgical History: Yes Surgery Procedure, Year, and Place: 1974 PARTIAL THYROIDECTOMY. 1989 [facility] LEFT FOOT. 1991 [facility]. 1993 [facility] [place]. 1996 LEFT KNEE [facility]. cataracts joe 09/2016, [facility]. left total knee, 2015, [facility]. 2000 PARTIAL HYSTERECTOMY [facility]. 2005 GANGLION CYST LEFT WRIST [facility]. 2015 left total knee [facility]. 2017 and 2019 right knee replacement - Family History Known Family History: Positive: Cardiac Disease, Diabetes - type II, Other - stroke - Social History Occupation: Retired Lives: With Family Alcohol Use: None Substance Use Type: None Smoking Status (MU): Never Smoked Tobacco Have You Smoked in the Last Year: No - Immunization History Most Recent Influenza Vaccination: 12/2016 Most Recent Tetanus Shot: 09/2014 Most Recent Pneumonia Vaccination: 12/2014 Review of Systems All Other Systems Reviewed And Are Negative: Yes Constitutional: Positive: Negative Skin: Positive: Other - sore area left great toe Eyes: Positive: Negative ENT: Positive: Negative Respiratory: Positive: Negative Cardiovascular: Positive: Negative Gastrointestinal: Positive: Negative Genitourinary: Positive: Negative Motor: Positive: Negative Neurovascular: Positive: Negative Musculoskeletal: Positive: Arthralgia Neurological/Mental Status: Positive: Negative Psychological: Positive: Anxious Is Patient Immunocompromised?: No Physical Exam Triage Information Reviewed: Yes Appearance: Well-Appearing, Pain Distress - mild Vital Signs: Initial Vital Signs Temp 97.0 F 05/05/19 12:47 Pulse 84 05/05/19 12:47 Resp 16 05/05/19 12:47 BP 135/77 05/05/19 12:47 Pulse Ox 100 05/05/19 12:47 Eye Exam: Normal ENT: Positive: Normal ENT inspection Neck: Positive: Supple, Nontender, No Lymphadenopathy Respiratory: Positive: Lungs clear, Normal breath sounds Cardiovascular: Positive: RRR, No Murmur Musculoskeletal Exam: Other - right knee with diffuse erythema consistent with post op TKR. No calf swelling, negative Erik's both right and left. Neurological Exam: Normal Psychological Exam: Normal Skin Exam: Other - left great toe with approx 15mm of blanchable eryhema distal digit with mild tenderness to palpation . No evidence of ingrown nail. Normal pulses. Lower Extremity Course/Dx - Course Course Of Treatment: discussed that this is possible early cellulitis; option of observation, soaking and topical treatment discussed v oral antibiotic. Risks and benefits discussed. She would like to start oral treatment given her level of concern over infection in her implant. - Differential Dx/Diagnosis Differential Diagnosis/HQI/PQRI: Cellulitis, Gout, Other - ingrown nail, septic emboli Provider Diagnosis: Cellulitis of great toe, left Discharge ED - Sign-Out/Discharge Documenting (check all that apply): Patient Departure All imaging exams completed and their final reports reviewed: No Studies - Discharge Plan Condition: Stable Disposition: HOME Prescriptions: cephALEXin [Keflex] 500 mg PO TID #21 capsule Patient Education Materials: Cellulitis (ED) Referrals: Ira Burch MD [Primary Care Provider] - Additional Instructions: Soak the left foot in warm water and salt. Begin cephlalexin for treatment of early cellulitis in the left toe. Take it for a minimum of 5 days (take for at least 48 hours after tenderness decreases and redness decreases). If you develop fever, increasing pain or do not see improvement, please proceed to the emergency room for evaluation because more testing would be needed than can be provided here. - Billing Disposition and Condition Condition: STABLE Disposition: Home
== END 2019-05-05 13:34 | disposition home or self-care (01) ==
LOC: UCEAST 11:46
DX: L03.032 Cellulitis of left toe (principal); F41.9 Anxiety disorder, unspecified
CPT/HCPCS: 99212; G0463

== ENCOUNTER → 2019-05-13 13:28 | Emergency (ER) | payer MEDICARE, OTHER ==
--- OUTSIDE RECORDS SUMMARY | 2019-05-13 13:46 | XMS REPORT ---
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 use of use of aspirin aspirin terminal carman retirement Diagnosis Active Zahra (current) (current) Carrier RN use of use of opiate opiate analgesic analgesic Other long Other long Diagnosis Active Zahra term term Carrier RN (current) (current) drug drug therapy therapy Pain frequent Pain Mgmt Resolve 2019-05-04 Pura pain d 2-04 10:00:00 (Bobby) 10:25: Deluca [id number] Cardio edema Cardiovasc Resolve 2019-05-04 Pura ular d 2-04 10:00:00 (Bobby) 10:25: Deluca [id number] Respiratory dyspnea Respirator Resolve 2019-05-04 Pura present y d 2-04 10:00:00 (Bobby) 10:25: Deluca [id number] Endo/Ross anti-coagul Endo/Ross Resolve 2019-05-04 Pura ation d 2-04 10:00:00 (Bobby) therapy 10:25: Deluca [id number] Integument surgical Integument Resolve 2019-05-04 Pura wound d 2-04 10:00:00 (Bobby) present 10:25: Deluca [id number] Integument skin Integument Resolve 2019-05-04 Pura integrity d 2-04 10:00:00 (Bobby) risk 10:25: Deluca [id number] Elimination urinary Eliminatio Resolve 2019-05-04 Pura incontinenc n d 2-04 10:00:00 (Bobby) e 10:25: Deluca [id number] Neuro confusion Neuro/Emot Resolve 2019-05-04 Pura present ion d 2-04 10:00:00 (Bobby) 10:25: Deluca [id number] Neuro anxiety Neuro/Emot Resolve 2019-05-04 Pura present ion d 2-04 10:00:00 (Bobby) 10:25: Deluca [id number] Neuro depressive Neuro/Emot Resolve 2019-05-04 Pura feelings ion d 2-04 10:00:00 (Bobby) present 10:25: Deluca [id number] Activity ADL Activity Resolve 2019-05-04 Pura assistance d 2-04 10:00:00 (Bobby) required 10:25: Deluca [id number] Activity self-care Activity Resolve 2019-05-04 Pura deficit d 2-04 10:00:00 (Bobby) 10:25: Deluca [id number] Safety fall risk Safety Resolve 2019-05-04 Pura factor d 2-04 10:00:00 (Bobby) present 10:25: Deluca [id number] Safety risk for Safety Resolve 2019-05-04 Pura hospitaliza d 2-04 10:00:00 (Bobby) tion 10:25: Deluca [id number] Safety can be left Safety Resolve 2019-05-04 Pura alone for d 2-04 10:00:00 (Bobby) only short 10:25: Deluca 00 [id number] Medication oral med Meds Resolve 2019-05-04 Pura assistance d 2-04 10:00:00 (Bobby) required 10:25: Deluca [id number] Musculoskel transfer Musculoske Resolve 2019-05-04 Pura etal assistance letal d 2-04 10:00:00 (Bobby) required 10:25: Deluca [id number] Musculoskel requires Musculoske Resolve 2019-05-04 Pura etal human letal d 2-04 10:00:00 (Bobby) assist to 10:25: Deluca leave home 00 [id number] Safety structural Safety Resolve 2019-05-04 Obi barriers d 2-04 10:00:00 Felicia present 13:37: [id number] Safety knowledge/s Safety Resolve 2019-05-04 Obi kill d 2-04 10:00:00 Felicia deficit: pt 13:37: [id number] ROM ROM PT: ROM Resolve 2019-05-04 Obi deficit: LE d 2-04 10:00:00 Felicia 13:37: [id number] 00 ROM knowledge/s PT: ROM Resolve 2019-05-04 Obi kill d 2-04 10:00:00 Felicia deficit LE: 13:37: [id number] pt 00 Strength/To knowledge/s PT: Resolve 2019-05-04 Obi ne/Motor kill Strength d 2-04 10:00:00 Felicia Control deficit LE: 13:37: [id number] pt 00 Bed mobility/tr PT/OT: Bed Resolve 2019-05-04 Obi Mobility/Tr ansfer Mobility/T d 2- 10:00:00 Felicia merchant device ransfer 13:37: [id number] present 00 Bed transfer PT/OT: Bed Resolve 2019-05-04 Obi Mobility/Tr deficit: Mobility/T d 2-04 10:00:00 Felicia merchant shower/tub ransfer 13:37: [id number] 00 Bed transfer PT/OT: Bed Resolve 2019-05-04 Obi Mobility/Tr deficit: Mobility/T d 2-04 10:00:00 Felicia merchant vehicle ransfer 13:37: [id number] 00 Bed knowledge/s PT/OT: Bed Resolve 2019-05-04 Obi Mobility/Tr kill Mobility/T d 2-04 10:00:00 Felicia merchant deficit: pt ransfer 13:37: [id number] 00 Balance/End balance/nurse coordinator PT/OT: Resolve 2019-05-04 Obi urance rdination Balance/En d 2-04 10:00:00 Felicia deficit durance 13:37: [id number] 00 OT: Self self-care OT: Resolve 2019-05-04 Obi Care deficit Self-Care d 2- 10:00:00 Felicia 13:37: [id number] 00 OT: Self knowledge/s OT: Resolve 2019-05-04 Obi Care kill Self-Care d 2-04 10:00:00 Kobziewicz deficit: pt 13:37: [id number] 00 Gait/Locomo stair PT/OT: Resolve 2019-05-04 Obi tion management Gait/Locom d 2- 10:00:00 Kobziewicz problems req otion 13:37: [id number] 00 Gait/Locomo gait PT/OT: Resolve 2019-05-04 Obi tion assistive Gait/Locom d 2- 10:00:00 Kobziewicz problems device otion 13:37: [id number] present 00 Gait/Locomo knowledge/s PT/OT: Resolve 2019-05-04 Obi tion kill Gait/Locom d 2- 10:00:00 Kobziewicz problems deficit: pt otion 13:37: [id number] 00 Gait/Locomo gait PT/OT: Resolve 2019-05-04 Obi tion deficit Gait/Locom d 2- 10:00:00 Kobziewicz problems otion 13:37: [id number] 00 Allergies, Adverse Reactions, Alerts Allergy Allergy [...]
--- OUTSIDE RECORDS SUMMARY | 2019-05-13 13:46 | XMS REPORT | Continuity of Care Document ---
:1945 External Reference #:[id number] Author Name Rissa Hudson NP (transmitted by agent of provider Margie Steele) Address [address], [place] [address] Care Team Providers Name Role Phone Gabby Santana MD - Family Medicine Care Team Information Teacher Ballet Ira Bustos MD - Family Medicine Care Team Information Teacher Ballet [phone] Problems Active Problems Provider Date Raynaud's disease Marlon Grossman M.D. Onset: 12/20/2011 Immunological Findings Nonspecified Other & Marlon Grossman M.D. Onset: 2011 Unspecified Multiple joint pain Marlon Grossman M.D. Onset: 06/30/2012 Medications Bilingual Sales Representative (Current) Use Encounter Marlon Grossman M.D. Onset: [...] History Type Date Description Comments Sex Unknown Tobacco Use Start: Unknown Never Smoked Cigarettes Smoking Status Reviewed: 11/29/18 Never Smoked Cigarettes ETOH Use Denies alcohol use Tobacco Use Start: Unknown Patient has never smoked Exercise Type/Frequency Exercises [...] Shelly Shafer, 02/19/2015 500mg 1 hour before M.DSylvie Capsules dental or gi procedure Topiramate take 1 tablet by 180tabs Hernán Lovett 11/28/2014 50mg Tablets mouth twice a day Cyril Montiel Cephalexin 1 cap 3 times Unknown 500mg daily for toe Capsules Celebrex take one Unknown 200mg Capsules capsule/tablet twice daily Aspirin 81 1 by mouth twice Unknown 81mg Tablets daily for 6 weeks Acetaminophen 2 every 6 hours as Unknown 500mg needed Tablets Morphine Sulfate ER 1 tablet by mouth Unknown every 12 hours as 15mg Tablets ER needed for pain Dilaudid take one tab every Unknown 2mg Tablets 4 hours as needed pain Pazeo Pazeo 0.7 % eye Unknown 0.7% Solution drops, 1 drop OU qd Estradiol Apply Pea Sized Unknown 0.1mg/GM Amount To Vulva Cream Twice Weekly AT Bedtime prn Multivitamin Adult 1 by mouth every Unknown day ( not taking Tablets at moment r/t surgery) Bupropion 1 po qd Ira Bustos, Hydrochloride ER (SR) MD 100mg Tablets ER 12HR Trazodone HCL 1-2 by mouth every Unknown 50mg day at bedtime Tablets Ventolin HFA 1 to 2 inhalations Unknown every 4 hours as 108(90Base) mcg/Act needed Aerosol Lansoprazole one twice a day in Unknown 30mg the morning and at Tablets Dispers night before meals Qvar 2 puffs once a day Unknown 80mcg/Act Aerosol Famotidine 1 po at hs phasing Unknown 20mg Tablets out Levothyroxine Sodium 1 by mouth every 30tabs Unknown day 75mcg Tablets History Medications Lansoprazole 1 by mouth twice 30caps Ira Bustos MD 04/17/2019 - 30mg Capsules daily 04/17/2019 Medications Administered in Office Medication SIG Qnty Indications Ordering Provider Date Depomedrol 40MG Shelly Shafer M.D. 07/23/2016 Injection Depomedrol 80MG Shelly Shafer M.D. 11/20/2014 Injection Depomedrol 80MG Shelly Shafer M.D. 07/26/2014 Injection Immunizations CPT Code Status Date Vaccine Lot # [id number] Given 02/07/2019 Zoster (Zostavax) 47192 Given 12/05/2018 Zoster (Shingles) Vaccine (HZV), Recombinant, Subunit, Adjuvanted 71531 Given 12/05/2018 Fluzone High Dose 29623 Given 12/21/2017 Influenza Virus Vaccine, Quadrivalent, Split, Im Use 6-35mo 29826 Given 08/08/2014 Tdap - Tetanus/Diptheria/Acellular Pertussis 83888 Given 12/17/2013 Flu Vaccine 68673 Given 12/29/2011 Pneumonia Vaccine 25702 Given 12/25/2010 Flu Vaccine 03085 Given 12/21/2010 Flu Vaccine 28744 Given 09/23/2009 Hepatitis B Vaccine 75113 Given 09/23/2009 Hepatitis A Vaccine Adult Dosage 34470 Given 03/25/2009 Hepatitis B Vaccine 03476 Given 02/07/2009 Hepatitis B Vaccine 97438 Given 02/07/2009 Hepatitis A Vaccine Adult Dosage 93580 Given Unknown Typhoid Vaccine Oral Vital Signs Date Vital Result Comment 05/08/2019 11:41am Height 61.5 inches 5'1.50" Weight 142.25 lb Heart Rate 73 /min BP Systolic 124 mmHg BP Diastolic 72 mmHg Body Temperature 97.6 F O2 % BldC Oximetry 99 % BMI (Body Mass Index) 26.4 kg/m2 04/17/2019 1:16pm Height 61.5 inches 5'1.50" Weight 144.12 lb Heart Rate 66 /min BP Systolic 104 mmHg BP Diastolic 65 mmHg Body Temperature 96.8 F O2 % BldC Oximetry 99 % BMI (Body Mass Index) 26.8 kg/m2 Results Test Acquired Date Facility Test [...] Blood Procedures Date Code Description Status 03/19/2019 510742503 Bone Mineral Density Test Completed 08/24/2016 [id number] Diabetic Retinal Eye Exam Completed 03/12/2015 [id number] Bone Mineral Density Test Completed 02/08/2013 [id number] Diabetic Retinal Eye Exam Completed 11/27/2012 [id number] Mammogram Completed Medical Devices Description No Information Available Encounters Type Date Location Provider Dx Diagnosis Office Visit 04/17/2019 [facility] Ira Bustos MD Z01.818 Encounter for other 1:00p Clinic [facility] preprocedural examination Z96.651 Presence of right artificial knee joint M17.11 Unilateral primary osteoarthritis, right knee M81.0 Age-related osteoporosis w/o current pathological fracture Office Visit 11/29/2018 9:00a [facility] Donovan Choi G25.0 Essential tremor Services [facility] [employer] Assessments Date Code Description Provider 05/08/2019 L03.032 Cellulitis of left toe Rissa Hudson NP 04/17/2019 Z01.818 Encounter for other preprocedural examination Ira Bustos MD 04/17/2019 Z96.651 Presence of right artificial knee joint Ira Bustos MD 04/17/2019 M17.11 Unilateral primary osteoarthritis, right knee Ira Bustos MD 04/17/2019 M81.0 Osteoporosis Ira Bustos MD 11/29/2018 G25.0 Essential tremor Donovan Choi NP Plan of Treatment Future Appointment(s):03/03/2020 9:30 am - Ira Bustos MD at [facility]08/27/2019 9:30 am - Ira Bustos MD at [facility]11/27/2019 9:30 am - Donovan Choi NP at [facility] Services [facility] - Rissa Hudson NPL03.032 Cellulitis of left toeComments:It appears this is slowly resolving Continue KeflexContinue espoms salt foot soaks twice daily Change your shoe to open toe, elevating throughout the dayIf you Develop any worsening signs or symptoms,or redness spreading, or noted infection, fevers , shaking chills, or any concerning symptoms please return to the office or go to urgent care/ER. Follow up as needed. Functional Status Description No Information Available Mental Status Description No Information Available Referrals Description No Information Available
--- OUTSIDE RECORDS SUMMARY | 2019-05-13 13:46 | XMS REPORT ---
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 Zahra (current) (current) Carrier RN use of use of aspirin aspirin oxyacetylene welder care home Diagnosis Active Zahra (current) (current) Carrier RN use of use of opiate opiate analgesic analgesic Other long Other long Diagnosis Active Zahra term term Carrier RN (current) (current) drug drug therapy therapy Pain frequent Pain Mgmt Resolve 2019-05-04 Pura pain d 2-04 10:00:00 (Bobby) 10:25: Deluca [id number] Cardio edema Cardiovasc Resolve 2019-05-04 Pura ular d 2-04 10:00:00 (Bobby) 10:25: Deluca [id number] Respiratory dyspnea Respirator Resolve 2019-05-04 Pura present y d 2-04 10:00:00 (Bobby) 10:25: Deluca [id number] Endo/Ross anti-coagul Endo/Ross Resolve 2019-05-04 Pura ation d 2-04 10:00:00 (Bobby) therapy 10:25: Deluca [id number] Integument surgical Integument Resolve 2019-05-04 Pura wound d 2-04 10:00:00 (Bobby) present 10:25: Deluca [id number] Integument skin Integument Resolve 2019-05-04 Pura integrity d 2-04 10:00:00 (Bobby) risk 10:25: Deluca [id number] Elimination urinary Eliminatio Resolve 2019-05-04 Pura incontinenc n d 2-04 10:00:00 (Bobby) e 10:25: Deluca [id number] Neuro confusion Neuro/Emot Resolve 2019-05-04 Pura present ion d 2-04 10:00:00 (Bobby) 10:25: Deluca [id number] Neuro anxiety Neuro/Emot Resolve 2019-05-04 Pura present ion d 2-04 10:00:00 (Bobby) 10:25: Deluca [id number] Neuro depressive Neuro/Emot Resolve 2019-05-04 Pura feelings ion d 2-04 10:00:00 (Bobby) present 10:25: Deluca [id number] Activity ADL Activity Resolve 2019-05-04 Pura assistance d 2-04 10:00:00 (Bobby) required 10:25: Deluca [id number] Activity self-care Activity Resolve 2019-05-04 Pura deficit d 2-04 10:00:00 (Bobby) 10:25: Deluca [id number] Safety fall risk Safety Resolve 2019-05-04 Pura factor d 2-04 10:00:00 (Bobby) present 10:25: Deluca [id number] Safety risk for Safety Resolve 2019-05-04 Pura hospitaliza d 2-04 10:00:00 (Bobby) tion 10:25: Deluca [id number] Safety can be left Safety Resolve 2019-05-04 Pura alone for d 2-04 10:00:00 (Bobby) only short 10:25: Deluca 00 [id number] Medication oral med Meds Resolve 2019-05-04 Pura assistance d 2-04 10:00:00 (Bobby) required 10:25: Deluca [id number] Musculoskel transfer Musculoske Resolve 2019-05-04 Puar etal assistance letal d 2-04 10:00:00 (Bobby) required 10:25: Deluca [id number] Musculoskel requires Musculoske Resolve 2019-05-04 Pura etal human letal d 2-04 10:00:00 (Bobby) assist to 10:25: Deluca leave home 00 [id number] Safety structural Safety Resolve 2019-05-04 Obi barriers d 2-04 10:00:00 Felicia present 13:37: [id number] Safety knowledge/s Safety Resolve 2019-05-04 Obi kill d 2-04 10:00:00 Felicia deficit: pt 13:37: [id number] 00 ROM ROM PT: ROM Resolve 2019-05-04 Obi deficit: LE d 2-04 10:00:00 Felicia 13:37: [id number] ROM knowledge/s PT: ROM Resolve 2019-05-04 Obi kill d 2-04 10:00:00 Felicia deficit LE: 13:37: [id number] pt 00 Strength/To knowledge/s PT: Resolve 2019-05-04 Obi ne/Motor kill Strength d 2-04 10:00:00 Felicia Control deficit LE: 13:37: [id number] pt 00 Bed mobility/tr PT/OT: Bed Resolve 2019-05-04 Obi Mobility/Tr ansfer Mobility/T d 2- 10:00:00 Felicia merchant device ransfer 13:37: [id number] present 00 Bed transfer PT/OT: Bed Resolve 2019-05-04 Obi Mobility/Tr deficit: Mobility/T d 2-04 10:00:00 Felicia merchant shower/tub ransfer 13:37: [id number] Bed transfer PT/OT: Bed Resolve 2019-05-04 Obi Mobility/Tr deficit: Mobility/T d 2-04 10:00:00 Felicia merchant vehicle ransfer 13:37: [id number] 00 Bed knowledge/s PT/OT: Bed Resolve 2019-05-04 Obi Mobility/Tr kill Mobility/T d 2-04 10:00:00 Felicia merchant deficit: pt ransfer 13:37: [id number] 00 Balance/End balance/clinical administrative coordinator PT/OT: Resolve 2019-05-04 Obi urance rdination Balance/En d 2-04 10:00:00 Felicia deficit durance 13:37: [id number] 00 OT: Self self-care OT: Resolve 2019-05-04 Obi Care deficit Self-Care d 2- 10:00:00 Felicia 13:37: [id number] 00 OT: Self knowledge/s OT: Resolve 2019-05-04 Obi Care kill Self-Care d 2-04 10:00:00 Kobziewicz deficit: pt 13:37: [id number] 00 Gait/Locomo stair PT/OT: Resolve 2019-05-04 Obi tion management Gait/Locom d 2- 10:00:00 Kobziewicz problems req otion 13:37: [id number] 00 Gait/Locomo gait PT/OT: Resolve 2019-05-04 Obi tion assistive Gait/Locom d 2- 10:00:00 Kobziewicz problems device otion 13:37: [id number] present 00 Gait/Locomo knowledge/s PT/OT: Resolve 2019-05-04 Obi tion kill Gait/Locom d 2- 10:00:00 Kobziewicz problems deficit: pt otion 13:37: [id number] 00 Gait/Locomo gait PT/OT: Resolve 2019-05-04 Obi tion deficit Gait/Locom d 2- 10:00:00 Kobziewicz problems otion 13:37: [id number] 00 Allergies, Adverse Reactions, Alerts Allergy Allergy [...]
--- NOTE | 2019-05-13 13:58 | ED ---
Lower Extremity - HPI Summary HPI Summary: Patient is a 73 y/o F presenting to the ED for a chief complaint of left great toe pain that began on 05/05/19. Patient states that at that time, she began to have erythema and edema of the left great toe. Previously, she had a blister on the toe which has since reduced in size. Patient denies any drainage from the toe, fever, chills, nausea, vomiting, or other rash. Patient has been soaking the toe in Epsom salts twice daily. She went to Urgent Care where she was diagnosed with cellulitis and prescribed Cephalexin which she has since completed. She was later seen by a IMPORT/EXPORT ADMINISTRATOR at her PCP's office on 04/07/19, and called the office again on 05/11/19. Patient was told that if the toe did not improve by 05/13/19, she should go to [facility] for a culture of the toe. PMHx is Reynaud's disease, GERD, thyroid disease, and essential tremors. PSHx is significant for right knee surgery revision on 04/18/19 performed at [place]. Patient denies alcohol, tobacco, or drug use. Medications reviewed. Allergies noted. - History of Current Complaint Chief Complaint: EDSoftTissueLowExtr Stated Complaint: CELLULITIS PER PT Time Seen by Provider: 05/13/19 13:55 Hx Obtained From: Patient Mechanism Of Injury: Other - None Onset/Duration: Still Present Severity Initially: Mild Severity Currently: Mild Pain Intensity: 3 Pain Scale Used: 0-10 Numeric Timing: Constant Location: Is Discrete @ - Left great toe Associated Signs And Symptoms: Positive: Swelling - Left great toe, Redness - Left great toe. Negative: Fever Aggravating Factor(s): Nothing Alleviating Factor(s): Nothing - Allergies/Home Medications Allergies/Adverse Reactions: Allergies Allergy/AdvReac Type Severity Reaction Status Date / Time No Known Allergies Allergy Verified 05/13/19 14:03 Home Medications: Home Medications Topiramate TAB(*) [Topamax 25 MG tab] 50 mg PO BID 01/15/12 [History Confirmed 05/13/19] Levothyroxine TAB* [Synthroid 88 MCG TAB*] 75 mcg PO 0800 01/20/15 [History Confirmed 05/13/19] Ondansetron HCl [Zofran 4 MG TAB] 4 mg PO TID PRN 01/20/15 [History Confirmed ] Qvar 80 MCG MDI(NF) 2 puff INH DAILY 08/30/16 [History Confirmed 05/13/19] Propranolol 20 mg TAB [Inderal TAB*] 20 mg PO BID 03/16/18 [History Confirmed ] Lansoprazole [Prevacid] 30 mg PO BID 11/02/18 [History Confirmed 05/13/19] buPROPion SR TAB* [Wellbutrin SR TAB*] 100 mg PO DAILY 11/10/18 [History Confirmed 05/13/19] Celecoxib [Celebrex 50 MG CAP] 200 mg PO BID 05/05/19 [History Confirmed ] Fexofenadine (NF) [Tiffanie 180 (NF)] 1 tab PO DAILY 05/05/19 [History Confirmed 05/13/19] Hydromorphone HCl [Dilaudid] 2 mg PO Q4HR PRN 05/05/19 [History Confirmed ] Morphine Er 15 mg PO BID 05/05/19 [History Confirmed 05/13/19] Aspirin [Aspirin EC] 81 mg PO BID 05/13/19 [History Confirmed 05/13/19] Cephalexin CAP* [Keflex CAP*] 500 mg PO TID 5 Days #15 cap 05/13/19 [Rx] Famotidine [Pepcid] 40 mg PO BEDTIME 05/13/19 [History Confirmed 05/13/19] traZODone TAB* [Desyrel TAB*] 50 mg PO BEDTIME 05/13/19 [History Confirmed 05/13] PMH/Surg Hx/FS Hx/Imm Hx Previously Healthy: Yes Endocrine/Hematology History: Reports: Hx Thyroid Disease - hypothyroidism, Other Endocrine/Hematological Disorders - Raynauds disease Cardiovascular History: Denies: Other Cardiovascular Problems/Disorders Respiratory History: Reports: Hx Asthma Denies: Other Respiratory Problems/Disorders GI History: Reports: Hx Gastroesophageal Reflux Disease - minor, Hx Hiatal Hernia, Hx Irritable Bowel Denies: Other GI Disorders History: Denies: Other Problems/Disorders Musculoskeletal History: Reports: Hx Arthritis - MANY JOINTS, Hx Bursitis Denies: Hx Osteoporosis, Other Musculoskeletal History Comment Only: Hx Rheumatoid Arthritis - possibly, sister has it Sensory History: Reports: Hx Cataracts - joe, Hx Contacts or Glasses Denies: Hx Legally Blind, Hx Deafness, Hx Hearing Aid Opthamlomology History: Reports: Hx Cataracts - joe, Hx Contacts or Glasses Denies: Hx Legally Blind EENT History: Denies: Hx Deafness Neurological History: Reports: Hx Nerve Disease, Other Neuro Impairments/ Disorders - essential tremors, 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 1989 BONE SPUR LEFT FOOT. [address] [facility] [address] [facility] [place]. 1993 [facility] [place] [place]. 1996 LEFT KNEE [facility]. cataracts joe 09/2016, [facility]. left total knee, 2014, [facility]. 2000 PARTIAL HYSTERECTOMY [facility]. 2004 [facility] LEFT WRIST [facility]. 2015 left total knee [facility]. 2016 and 2019 right knee replacement Hx Anesthesia Reactions: Yes - epidural nor effective Infectious Disease History: No Infectious Disease History: Denies: Traveled Outside the [place] in Last 30 Days - Family History Known Family History: Positive: Cardiac Disease, Diabetes - type II, Other - stroke - Social History Occupation: Retired Lives: With Family Alcohol Use: None Hx Substance Use: No Substance Use Type: Reports: None Hx Tobacco Use: No Smoking Status (MU): Never Smoked Tobacco Have You Smoked in the Last Year: No Review of Systems Negative: Fever, Chills Negative: Vomiting, Nausea Positive: Edema - Left great toe Positive: Other - Positive erythema of the left great toe and blister on the left great toe; negative drainage from the left great toe. Negative: Rash All Other Systems Reviewed And Are Negative: Yes Physical Exam - Summary Physical Exam Summary: Constitutional: Well-developed, Well-nourished, Alert. (-) Distressed Skin: Warm, Dry HENT: Normocephalic; Atraumatic Eyes: Conjunctiva normal Neck: Musculoskeletal ROM normal neck. (-) JVD, (-) Stridor, (-) Tracheal deviation Cardio: Rhythm regular, rate normal, Heart sounds normal; Intact distal pulses; Radial pulses are 2+ and symmetric. (-) Murmur Pulmonary/Chest wall: Effort normal. (-) Respiratory distress, (-) Wheezes, (-) Rales Abd: Soft, (-) tenderness, (-) Distension, (-) Guarding, (-) Rebound Musculoskeletal: (-) Edema. 0.5 cm by 0.5 cm area of erythema to the left great toe distal to the nail, no purulent drainage, no tenderness, no areas of similar rash. Lymph: (-) Cervical adenopathy Neuro: Alert, Oriented x3 Psych: Mood and affect Normal Triage Information Reviewed: Yes Vital Signs On Initial Exam: Initial Vitals Temp Pulse Resp BP Pulse Ox 99.0 F 81 17 132/72 99 05/13/19 13:33 05/13/19 13:33 05/13/19 13:33 05/13/19 13:33 05/13/19 13:33 Vital Signs Reviewed: Yes Procedures - Sedation Patient Received Moderate/Deep Sedation with Procedure: No Diagnostics - Vital Signs Vital Signs Temp Pulse Resp BP Pulse Ox 05/13/19 13:33 99.0 F 81 17 132/72 99 - Laboratory Lab Statement: Any lab studies that have been ordered have been reviewed, and results considered in the medical decision making process. Lower Extremity Course/Dx - Course Course Of Treatment: Patient is here with a possible infection to her toe. Patient had cellulitis to her great toe which has since gotten much better after Keflex. Patient was concerned that she still had some slight redness to her toe. Patient still is not warm, swollen, tender. Patient does not have an ingrown toenail. Patient has no other evidence of rashes anywhere else on her body. Patient was given a [id number] prescription for antibiotics that she was very concerned. - Diagnoses Provider Diagnoses: Pain of great toe Discharge ED - Sign-Out/Discharge Documenting (check all that apply): Patient Departure - Discharge - Discharge Plan Condition: Stable Disposition: HOME Prescriptions: Cephalexin CAP* [Keflex CAP*] 500 mg PO TID 5 Days #15 cap Patient Education Materials: Arthralgia (ED) Referrals: Ira Burch MD [Primary Care Provider] - Additional Instructions: PLEASE RETURN TO EMERGENCY DEPARTMENT FOR PUS FROM THE TOE, FEVER, CHILLS, OR ANY NEW OR WORSENING SYMPTOMS. Please follow up with your primary care physician. Please make all follow-ups in 1-3 days unless I advise you otherwise. Fill your antibiotic prescription if your toe worsens. - Billing Disposition and Condition Condition: STABLE Disposition: Home - Attestation Statements Document Initiated by Scribe: Yes Documenting Scribe: Natty Rios Provider For Whom Kenyatta is Documenting (Include Credential): Eze Graves MD Scribe Attestation: Natty Diana, scribed for Eze Graves MD on 05/13/19 at 1448. Scribe Documentation Reviewed: Yes Provider Attestation: The documentation as recorded by the Natty hernandez accurately reflects the service I personally performed and the decisions made by , Eze Graves MD Status of Scribe Document: Viewed
[2019-05-13 14:37] VITALS: BP 122/69
== END | disposition home or self-care (01) ==
LOC: ED 13:28
DX: M79.675 Pain in left toe(s) (principal); R60.9 Edema, unspecified; E03.9 Hypothyroidism, unspecified; K21.9 Gastro-esophageal reflux disease without esophagitis; Z79.82 Long term (current) use of aspirin; Z79.899 Other long term (current) drug therapy
CPT/HCPCS: 99282